=== PATIENT | male | born 1960 | race Caucasian/White ===

== ENCOUNTER 2018-02-03 17:25 | Observation (INO) | payer OTHER ==
[2018-02-03] MEDS ORDERED: methylPREDNISolone SOD SUCCI 125 MG/2 ML VIAL IV STA (17:53)
[2018-02-03] MEDS ORDERED: IPRATROPIUM-ALBUTEROL 3 ML NEB INHALATION STA ×2 (17:53→19:14)
--- NOTE | 2018-02-03 17:58 | ED ---
SOB HPI - General Chief Complaint: Shortness of Breath Stated Complaint: Sob/stomach swollen Time Seen by Provider: 02/03/18 17:44 Source: patient, RN notes reviewed Mode of arrival: ambulatory Limitations: no limitations - History of Present Illness Initial Comments: This is a 49-year-old male with a history of COPD who quit smoking about 2 years ago who states she's been under last stress at work and he states he gets under stress he gets bloating of the abdomen. History past 2 or 3 days she's had shortness of breath increased abdominal swelling no fevers chills nausea vomiting sweats. Patient does state that recently he's been burping a lot. He states she's been dealing with mid back pain in his scapular region for about the last several months he did see a chiropractor with some resolution but not complete. He denies any heart disease cardiovascular disease or any sort. She had no cough or phlegm production he states been using his rescue inhaler today without much success. MD Complaint: shortness of breath - Related Data Home Medications Medication Instructions Recorded Confirmed Albuterol Inhaler [Ventolin Hfa 1 - 2 puff INHALATION RT-Q6H PRN 02/03/18 Inhaler] Zzjec-M-Lsxvezehqktlr [Beano] 300 unit PO DAILY PRN 02/03/18 02/03/18 Budesonide/Formoterol Fumarate 1 puff INHALATION RT-BID 02/03/18 02/03/18 [Symbicort 160-4.5 Mcg Inhaler] Famotidine [Pepcid AC] 10 mg PO DAILY PRN 02/03/18 02/03/18 Fluticasone Nasal [place] [Flonase 1 spray EA NOSTRIL DAILY 02/03/18 02/03/18 Nasal [place]] Pantoprazole [Protonix] 40 mg PO HS 02/03/18 02/03/18 Tiotropium 18 Mcg/Puff [Spiriva] 1 cap INHALATION RT-DAILY 02/03/18 02/03/18 Allergies Allergy/AdvReac Type Severity Reaction Status Date / Time No Known Allergies Allergy Verified 02/03/18 18:01 Review of Systems ROS Statement: Those systems with pertinent positive or pertinent negative responses have been documented in the HPI. ROS Other: All systems not noted in ROS Statement are negative. Past Medical History Past Medical History: Asthma, COPD, GERD/Reflux History of Any Multi-Drug Resistant Organisms: None Reported Past Surgical History: Orthopedic Surgery Additional Past Surgical History / Comment(s): rt hand Past Psychological History: No Psychological Hx Reported Smoking Status: Former smoker Past Alcohol Use History: Occasional Past Drug Use History: None Reported General Exam - General Exam Comments Initial Comments: This is a well-developed well-nourished awake alert oriented 3 male Limitations: no limitations General appearance: alert, in no apparent distress Head exam: Present: atraumatic, normocephalic, normal inspection Eye exam: Present: normal appearance, PERRL, EOMI. Absent: scleral icterus, conjunctival injection, periorbital swelling ENT exam: Present: normal exam, mucous membranes moist Neck exam: Present: normal inspection. Absent: tenderness, meningismus, lymphadenopathy Respiratory exam: Present: decreased breath sounds. Absent: respiratory distress, wheezes, rales, rhonchi, stridor Cardiovascular Exam: Present: regular rate, normal rhythm, normal heart sounds. Absent: systolic murmur, diastolic murmur, rubs, gallop, clicks GI/Abdominal exam: Present: soft, distended, normal bowel sounds, other. Absent : tenderness, guarding, rebound, rigid, bruit, pulsatile mass, hernia Extremities exam: Present: normal inspection, full ROM, normal capillary refill. Absent: tenderness, pedal edema, joint swelling, calf tenderness Back exam: Present: normal inspection Neurological exam: Present: alert, oriented X3, CN II-XII intact Psychiatric exam: Present: normal affect, normal mood Skin exam: Present: warm, dry, intact, normal color. Absent: rash Course Vital Signs 02/03/18 02/03/18 02/03/18 17:33 18:10 18:13 Temperature 99.3 F Pulse Rate 101 H 104 H Respiratory 22 20 Rate Blood Pressure 159/101 O2 Sat by Pulse 90 L Oximetry 02/03/18 02/03/18 02/03/18 18:20 19:19 19:45 Temperature Pulse Rate 85 79 80 Respiratory 18 Rate Blood Pressure 124/67 O2 Sat by Pulse 97 Oximetry 02/03/18 02/03/18 19:53 20:20 Temperature Pulse Rate 84 93 Respiratory 18 Rate Blood Pressure O2 Sat by Pulse 95 Oximetry - Reevaluation(s) Reevaluation #1: 02/03/18 18:44 Reevaluation patient reveals he does feel as if he is breathing better. Reevaluation #2: 02/03/18 21:49 Patient did seem he is some relief after his second updraft however he quickly desaturate with activity and still dyspneic with wheezing does now that wasn't initially. Medical Decision Making - Medical Decision Making Patient will be admitted for evaluation and treatment of COPD exacerbation. - Lab Data Result diagrams: 02/03/18 18:00 02/03/18 18:00 Lab Results 02/03/18 02/03/18 02/03/18 Range/Units 18:00 18:00 18:00 WBC 6.6 (3.8-10.6) k/uL RBC 5.48 (4.30-5.90) m/uL Hgb 16.9 (13.0-17.5) gm/dL Hct 47.7 (39.0-53.0) % MCV 87.1 (80.0-100.0) fL MCH 30.8 (25.0-35.0) pg MCHC 35.4 (31.0-37.0) g/dL RDW 13.0 (11.5-15.5) % Plt Count 147 L (150-450) k/uL Neutrophils % 74 % Lymphocytes % 16 % Monocytes % 6 % Eosinophils % 2 % Basophils % 1 % Neutrophils # 4.9 (1.3-7.7) k/uL Lymphocytes # 1.0 (1.0-4.8) k/uL Monocytes # 0.4 (0-1.0) k/uL Eosinophils # 0.1 (0-0.7) k/uL Basophils # 0.0 (0-0.2) k/uL PT (9.0-12.0) sec INR (<1.2) APTT (22.0-30.0) sec D-Dimer (<0.60) mg/L FEU Sodium 141 (137-145) mmol/L Potassium 4.1 (3.5-5.1) mmol/L Chloride 102 (98-107) mmol/L Carbon Dioxide 27 (22-30) mmol/L Anion Gap 12 mmol/L BUN 17 (9-20) mg/dL Creatinine 0.89 (0.66-1.25) mg/dL Est GFR (CKD-EPI)AfAm >90 (>60 ml/min/1.73 sqM) Est GFR (CKD-EPI)NonAf >90 (>60 ml/min/1.73 sqM) Glucose 87 (74-99) mg/dL Calcium 9.5 (8.4-10.2) mg/dL Magnesium 1.9 (1.6-2.3) mg/dL Total Bilirubin 0.6 (0.2-1.3) mg/dL AST 21 (17-59) U/L ALT 32 (21-72) U/L Alkaline Phosphatase 71 (38-126) U/L Total Creatine Kinase 72 (55-170) U/L CK-MB (CK-2) 1.0 (0.0-2.4) ng/mL CK-MB (CK-2) Rel Index 1.4 Troponin I <0.012 (0.000-0.034) ng/mL NT-Pro-B Natriuret Pep pg/mL Total Protein 6.8 (6.3-8.2) g/dL Albumin 4.2 (3.5-5.0) g/dL 02/03/18 02/03/18 Range/Units 18:00 18:00 WBC (3.8-10.6) k/uL RBC (4.30-5.90) m/uL Hgb (13.0-17.5) gm/dL Hct (39.0-53.0) % MCV (80.0-100.0) fL MCH (25.0-35.0) pg MCHC (31.0-37.0) g/dL RDW (11.5-15.5) % Plt Count (150-450) k/uL Neutrophils % % Lymphocytes % % Monocytes % % Eosinophils % % Basophils % % Neutrophils # (1.3-7.7) k/uL Lymphocytes # (1.0-4.8) k/uL Monocytes # (0-1.0) k/uL Eosinophils # (0-0.7) k/uL Basophils # (0-0.2) k/uL PT 9.8 (9.0-12.0) sec INR 1.0 (<1.2) APTT 23.1 (22.0-30.0) sec D-Dimer 0.20 (<0.60) mg/L FEU Sodium (137-145) mmol/L Potassium (3.5-5.1) mmol/L Chloride (98-107) mmol/L Carbon Dioxide (22-30) mmol/L Anion Gap mmol/L BUN (9-20) mg/dL Creatinine (0.66-1.25) mg/dL Est GFR (CKD-EPI)AfAm (>60 ml/min/1.73 sqM) Est GFR (CKD-EPI)NonAf (>60 ml/min/1.73 sqM) Glucose (74-99) mg/dL Calcium (8.4-10.2) mg/dL Magnesium (1.6-2.3) mg/dL Total Bilirubin (0.2-1.3) mg/dL AST (17-59) U/L ALT (21-72) U/L Alkaline Phosphatase (38-126) U/L Total Creatine Kinase (55-170) U/L CK-MB (CK-2) (0.0-2.4) ng/mL CK-MB (CK-2) Rel Index Troponin I (0.000-0.034) ng/mL NT-Pro-B Natriuret Pep 32 pg/mL Total Protein (6.3-8.2) g/dL Albumin (3.5-5.0) g/dL - EKG Data -: EKG Interpreted by Me EKG shows normal: sinus rhythm (Sinus rhythm rate of 91 appear interval 144 QRS duration 94 daily since QTC 350/4:30 is a normal-appearing EKG) - Radiology Data Radiology results: report reviewed (I did review the imaging and report no acute findings.), image reviewed Critical Care Time Critical Care Time: Yes Critical Care Time: 31 minutes of critical care time which includes initial presentation with history physical labs x-rays reevaluation several occasions discussion with the patient regarding findings discussed with the admitting service admitting orders and documentation of the above Disposition Clinical Impression: Acute exacerbation of chronic obstructive airways disease, Hypoxemia Disposition: ADMITTED IP TO THIS [facility] Condition: Stable Referrals: Grace Gardner MD [Primary Care Provider] - 1-2 days
[2018-02-03 18:25] LABS: Basophils % (A) 1 %; Eosinophils # (A) 0.1 k/uL (0-0.7); Eosinophils % (A) 2 %; HCT 47.7 % (39.0-53.0); HGB 16.9 gm/dL (13.0-17.5); Lymphocytes % (A) 16 %; MCH 30.8 pg (25.0-35.0); MCHC 35.4 g/dL (31.0-37.0); MCV 87.1 fL (80.0-100.0); Mean Platelet Volume 7.4; Monocytes # (A) 0.4 k/uL (0-1.0); Monocytes % (A) 6 %; Neutrophils # (A) 4.9 k/uL (1.3-7.7); Neutrophils % (A) 74 %; Platelet Count 147 k/uL (150-450); RBC 5.48 m/uL (4.30-5.90); WBC 6.6 k/uL (3.8-10.6)
[2018-02-03 18:34] LABS: D-Dimer 0.2 mg/L FEU (<0.60)
[2018-02-03 18:35] LABS: ALT 32 U/L (21-72); AST 21 U/L (17-59); Albumin 4.2 g/dL (3.5-5.0); Alkaline Phosphatase 71 U/L (38-126); Anion Gap 12 mmol/L; Blood Urea Nitrogen 17 mg/dL (9-20); Calcium 9.5 mg/dL (8.4-10.2); Carbon Dioxide 27 mmol/L (22-30); Chloride 102 mmol/L (98-107); Glucose 87 mg/dL (74-99); Magnesium 1.9 mg/dL (1.6-2.3); Potassium 4.1 mmol/L (3.5-5.1); Sodium 141 mmol/L (137-145); Total Bilirubin 0.6 mg/dL (0.2-1.3); Total Protein 6.8 g/dL (6.3-8.2)
[2018-02-03 18:38] LABS: Partial Thromboplastin Time 23.1 sec (22.0-30.0); Prothrombin Time 9.8 sec (9.0-12.0)
[2018-02-03 18:46] LABS: Creatine Kinase 72 U/L (55-170)
--- NOTE | 2018-02-03 18:55 | XR ---
EXAMINATION TYPE: XR chest 2V DATE OF EXAM: 02/03/2018 COMPARISON: 09/23/2011 HISTORY: Difficulty breathing TECHNIQUE: Frontal and lateral views of the chest are obtained. FINDINGS: Focal opacities seen within the right midlung. This is in the region of the previously see n opacity of 2010 although there is no interval growth radiographically. This could represent chronic atelectasis. Additional or nodular density within the right base likely relates to patient's nipple shadow. Repeat radiograph with nipple markers recommended as this is not seen on the lateral view. Re mainder the lungs are clear. Cardiomediastinal silhouette is within normal limits. Osseous structures are grossly intact. IMPRESSION: 1. Chronic right midlung opacity favored to represent chronic atelectasis. 2. Nodular density seen on the frontal view only within the right lung base that likely relates to mathieu delaney's nipple shadow. Nonemergent repeat radiograph with placement of the nipple marker/BB is recomm ended.
[2018-02-03 19:00] LABS: Troponin I <0.012 ng/mL (0.000-0.034)
[2018-02-03] MEDS ORDERED: FAMOTIDINE 20 MG TAB PO PRN (21:53)
[2018-02-03] MEDS ORDERED: ALPHA D GALACTOSIDASE 300 UNIT PO PRN (21:53)
[2018-02-03] MEDS ORDERED: SODIUM CHLORIDE 0.9% 1,000 ML IV SCH (22:00)
[2018-02-03] MEDS ORDERED: IPRATROPIUM-ALBUTEROL 3 ML NEB INHALATION PRN (23:22)
[2018-02-04] MEDS ORDERED: IPRATROPIUM-ALBUTEROL 3 ML NEB INHALATION SCH
[2018-02-04 00:24] VITALS: BMI 27.6
[2018-02-04] MEDS: methylPREDNISolone SOD SUCCI 125 MG/2 ML VIAL IV SCH ×3 (01:11→13:15)
[2018-02-04] MEDS: IPRATROPIUM-ALBUTEROL 3 ML NEB INHALATION SCH ×3 (06:58→15:14)
[2018-02-04 08:29] VITALS: BP 116/81; RESP 18; TEMP 98.8
[2018-02-04] MEDS ORDERED: FLUTICASONE 50MCG/SPRAY NASAL 16GM EA NOSTRIL SCH (09:00)
[2018-02-04] MEDS: ACETAMINOPHEN TAB 325 MG TAB PO PRN ×2 (09:04→14:43)
--- NOTE | 2018-02-04 12:45 | P.HPIM ---
History of Present Illness Patient is a pleasant 57-year-old gentleman came in with complaints of excessive burping and nausea symptoms and mild well epigastric abdominal discomfort associated with food. Patient also had pain going into the posterior shoulder area blade area patient still has his gallbladder obtaining ultrasound of the gallbladder patient is on Protonix symptoms improved. Patient 's had similar symptoms in the past diagnosed with the gastric cancer because of which patient became anxious and came to the ER. In ER patient is found to have some COPD exacerbation because of which patient was started on Solu-Medrol admitted patient has fairly good air entry bilateral lung duong with the no significant wheezing patient will be discharged today and the shot tapering dose after ultrasound of the gallbladder make sure there is no cholelithiasis patient doesn't have any cholecystitis doesn't have any right upper quadrant pain or tenderness. Patient apparently has saturations going down to 80% in ER because of which patient was admitted under observation. Patient denied any cough fever chills chest x-ray did not show any pneumonic process. Review of Systems REVIEW OF SYSTEMS: CONSTITUTIONAL: No fever, no malaise, no fatigue. HEENT: No recent visual problems or hearing problems. Denied any sore throat. CARDIOVASCULAR: No chest pain, orthopnea, PND, no palpitations, no syncope. PULMONARY: As mentioned in HPI GASTROINTESTINAL: As mentioned in HPI NEUROLOGICAL: No headaches, no weakness, no numbness. HEMATOLOGICAL: Denies any bleeding or petechiae. GENITOURINARY: Denies any burning micturition, frequency, or urgency. MUSCULOSKELETAL/RHEUMATOLOGICAL: Denies any joint pain, swelling, or any muscle pain. ENDOCRINE: Denies any polyuria or polydipsia. The rest of the 14-point review of systems is negative. Past Medical History Past Medical History: Asthma, COPD, GERD/Reflux History of Any Multi-Drug Resistant Organisms: None Reported Past Surgical History: Orthopedic Surgery, Tonsillectomy Additional Past Surgical History / Comment(s): rt hand Past Anesthesia/Blood Transfusion Reactions: No Reported Reaction Past Psychological History: No Psychological Hx Reported Smoking Status: Former smoker Past Alcohol Use History: Occasional Past Drug Use History: None Reported - Past Family History Sister(s) Additional Family Medical History / Comment(s): chrohns Mother Family Medical History: Cancer Additional Family Medical History / Comment(s): colon ca diverticulitis Father Family Medical History: Myocardial Infarction (PR) Additional Family Medical History / Comment(s): heart stent Medications and Allergies Home Medications Medication Instructions Recorded Confirmed Type Albuterol Inhaler [Ventolin Hfa 1 - 2 puff INHALATION RT-Q6H PRN 02/03/18 History Inhaler] Dngal-K-Kpoeqttpnakml [Beano] 300 unit PO DAILY PRN 02/03/18 02/03/18 History Budesonide/Formoterol Fumarate 1 puff INHALATION RT-BID 02/03/18 02/03/18 History [Symbicort 160-4.5 Mcg Inhaler] Fluticasone Nasal [place] [Flonase 1 spray EA NOSTRIL DAILY 02/03/18 02/03/18 History Nasal [place]] Pantoprazole [Protonix] 40 mg PO HS 02/03/18 02/03/18 History Tiotropium 18 Mcg/Puff [Spiriva] 1 cap INHALATION RT-DAILY 02/03/18 02/03/18 History Omeprazole [PriLOSEC] 40 mg PO AC-BRTeddyFSHome #30 capsule. 02/04/18 Rx predniSONE 10 mg PO DAILY #20 tab 02/04/18 Rx Allergies Allergy/AdvReac Type Severity Reaction Status Date / Time No Known Allergies Allergy Verified 02/03/18 18:01 Physical Exam Vitals: Vital Signs Temp Pulse Pulse Resp BP BP Pulse Ox 02/04/18 11:04 94 02/04/18 10:50 92 02/04/18 07:10 94 02/04/18 07:00 98.8 F 88 111 H 18 116/81 91 L 02/04/18 00:00 90 16 02/03/18 23:20 92 16 143/75 96 02/03/18 23:00 98.2 F 90 18 130/83 95 02/03/18 22:03 97.9 F 98 16 135/70 94 L 02/03/18 20:20 93 18 95 02/03/18 19:53 84 02/03/18 19:45 80 02/03/18 19:19 79 18 124/67 97 02/03/18 18:20 85 02/03/18 18:13 20 02/03/18 18:10 104 H 02/03/18 17:33 99.3 F 101 H 22 159/101 90 L Intake and Output 02/03/18 02/04/18 02/04/18 22:59 06:59 14:59 Other: Voiding Method Toilet # Voids 1 Weight 82.5 kg PHYSICAL EXAMINATION: GENERAL: The patient is alert and oriented x3, not in any acute distress. Well developed, well nourished. HEENT: Pupils are round and equally reacting to light. EOMI. No scleral icterus. No conjunctival pallor. Normocephalic, atraumatic. No pharyngeal erythema. No thyromegaly. CARDIOVASCULAR: S1 and S2 present. No murmurs, rubs, or gallops. PULMONARY: Chest is clear to auscultation, no wheezing or crackles. ABDOMEN: Soft, nontender, nondistended, normoactive bowel sounds. No palpable organomegaly. MUSCULOSKELETAL: No joint swelling or deformity. EXTREMITIES: No cyanosis, clubbing, or pedal edema. NEUROLOGICAL: Gross neurological examination did not reveal any focal deficits. SKIN: No rashes. Results CBC & Chem 7: 02/03/18 18:00 02/03/18 18:00 Labs: Abnormal Lab Results - Last 24 Hours (Table) 02/03/18 Range/Units 18:00 Plt Count 147 L (150-450) k/uL Thrombosis Risk Factor Assmnt - Choose All That Apply Any of the Below Risk Factors Present?: Yes Each Factor Represents 1 point: Age 41-60 years, Obesity (BMI >25) Other Risk Factors: No Thrombosis Risk Factor Assessment Total Risk Factor Score: 2 Thrombosis Risk Factor Assessment Level: Low Risk Assessment and Plan Plan: -Excessive worry pain and mild epigastric discomfort: Probably related to gastritis patient will be discharged on Prilosec for [address] Mccann at him as an outpatient for possibility of upper GI endoscopy because of his concerns of gastric malignancy. -Pain radiating to the bilateral shoulder blades: We'll rule out cholelithiasis patient doesn't have any cholecystitis, if he has Nathalie TSS patient will need to follow up with surgery as an outpatient. -COPD with minimal exacerbation: Patient the respiratory status improved sat. 90 where 1% on room air patient will be discharged on shocked February of steroids patient is already on THAT THE APPROPRIATE HOME WHICH WILL BE CONTINUED. -OBESITY: COUNSELING WAS PROVIDED.
[2018-02-04 12:46] LABS: Amylase 40 U/L (30-110); Lipase 34 U/L (23-300)
--- NOTE | 2018-02-04 14:38 | US ---
EXAMINATION TYPE: US gallbladder DATE OF EXAM: 02/04/2018 COMPARISON: NONE CLINICAL HISTORY: r/o gall stones. Intermittent bloating for 3 years. Indigestion for 1 week. Abdomin al tenderness EXAM MEASUREMENTS: Liver Length: 17.6 cm Gallbladder Wall: 0.3 cm CBD: 0.3 cm Right Kidney: 11.0 x 5.1 x 5.0 cm *Technical limitations due to large amount of overlying bowel content Pancreas: Obscured by bowel gas Liver: upper limits of normal in size, diffusely hyperechoic other than a focal hypoechoic area zakiya cent to GB = 1.5cm, probable focal sparing Gallbladder: no evidence of stones Evidence for sonographic Perry's sign: no CBD: appears wnl Right Kidney: no evidence of hydronephrosis or mass as visualized IMPRESSION: 1. Hyperechoic hepatic echotexture, most commonly relating to hepatic steatosis. Focal area of hypoec hogenicity in the gallbladder fossa most commonly represents focal fatty sparing in this region. Rela te with LFTs. There is further clinical concern enhanced CT abdomen or MR abdomen could BE performed. 2. No sonographic evidence of cholelithiasis or acute cholecystitis.
[2018-02-04 15:28] VITALS: PULSE 102
--- NOTE | 2018-02-04 15:45 | P.CNPUL ---
History of Present Illness Consult date: 02/04/18 Requesting physician: Ama Scahefer Reason for consult: dyspnea, COPD Chief complaint: Shortness of breath, acute COPD exacerbation History of present illness: Rick is a 57-year-old white male patient of Dr. 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 Reports a lot of burping, his abdomen is quiet distended, but nontender. Patient denied any fever, or chills. His cough is dry, noncongested. Denies any chest pain, denies any chest congestion, wheezing, or sputum production. Patient does have an underlying history of COPD, he sees a fig caprifier at [facility], Dr. Jeremias Belle, and he was seen in the office last week, and he was doing fine at that time. He does not wear oxygen at his baseline. He is an ex smoker, he quit several years back, but prior to that smoked for over 40 years. He is maintained on a combination of Spiriva and Symbicort. Patient states his baseline FEV1 is 35% of predicted, which places him in the GOLD stage III category. He also states he has pulmonary nodules that are being followed by his fig caprifier on outpatient basis with PET/CT scans every 6 months. The biopsies were reportedly negative for malignancy. He states the last PET/ computed tomography scan showed decrease in the size of his pulmonary nodules. He does have a rescue inhaler, which he did use multiple times yesterday, with no relief of his symptoms. He states he was diagnosed with GERD/reflux in the past, did have a EGD which revealed a hiatal hernia. He is on maintenance dose of Protonix 40 mg daily. He has regular bowel movements every day, denies any nausea vomiting or diarrhea. Chest x-ray showed chronic right midlung opacity favored to represent chronic atelectasis and nodular density in the right lung base, which is thought to be related to patient's nipple shadow. EKG showed sinus rhythm. Patient's lipase and amylase were within normal limits, his lab work showed no evidence of leukocytosis, his platelet count was 147, d-dimer was 0.20, INR is 1.0, electrolyte and renal profile were all within normal limits. Cardiac enzymes and troponins as well as proBNP were all within normal limits. LFTs were normal. Influenza screen was negative. Gallbladder ultrasound was done and showed no sonographic evidence of cholelithiasis or acute cholecystitis. Hyperechoic hepatic echotexture, most commonly relating to hepatic steatosis. Patient was given DuoNeb nebulized treatments, IV steroids, Protonix and on today's exam his lung sounds are clear, no evidence of rhonchi, wheezing or rales. He is on room air, oxygenating above 92%. No cough, no fever, no chills. His abdomen is distended, but nontender. Review of Systems All systems: negative Constitutional: Denies chills, Denies fever Eyes: denies blurred vision, denies pain Ears, nose, mouth and throat: Denies headache, Denies sore throat Cardiovascular: Denies chest pain, Denies shortness of breath Respiratory: Reports dyspnea, Denies cough Gastrointestinal: Reports bloating, Denies abdominal pain, Denies diarrhea, Denies nausea, Denies vomiting Musculoskeletal: Denies myalgias Integumentary: Denies pruritus, Denies rash Neurological: Denies numbness, Denies weakness Psychiatric: Denies anxiety, Denies depression Endocrine: Denies fatigue, Denies weight change Past Medical History Past Medical History: Asthma, COPD, GERD/Reflux History of Any Multi-Drug Resistant Organisms: None Reported Past Surgical History: Orthopedic Surgery, Tonsillectomy Additional Past Surgical History / Comment(s): rt hand Past Anesthesia/Blood Transfusion Reactions: No Reported Reaction Past Psychological History: No Psychological Hx Reported Smoking Status: Former smoker Past Alcohol Use History: Occasional Past Drug Use History: None Reported - Past Family History Sister(s) Additional Family Medical History / Comment(s): chrohns Mother Family Medical History: Cancer Additional Family Medical History / Comment(s): colon ca diverticulitis Father Family Medical History: Myocardial Infarction ([place]) Additional Family Medical History / Comment(s): heart stent Medications and Allergies Home Medications Medication Instructions Recorded Confirmed Type Albuterol Inhaler [Ventolin Hfa 1 - 2 puff INHALATION RT-Q6H PRN 02/03/18 History Inhaler] Wrobc-E-Zmunhkuddwmvy [Beano] 300 unit PO DAILY PRN 02/03/18 02/03/18 History Budesonide/Formoterol Fumarate 1 puff INHALATION RT-BID 02/03/18 02/03/18 History [Symbicort 160-4.5 Mcg Inhaler] Fluticasone Nasal [place] [Flonase 1 spray EA NOSTRIL DAILY 02/03/18 02/03/18 History Nasal [place]] Pantoprazole [Protonix] 40 mg PO HS 02/03/18 02/03/18 History Tiotropium 18 Mcg/Puff [Spiriva] 1 cap INHALATION RT-DAILY 02/03/18 02/03/18 History Omeprazole [PriLOSEC] 40 mg PO AC-BRKFST #30 capsule. 02/04/18 Rx predniSONE 10 mg PO DAILY #20 tab 02/04/18 Rx Allergies Allergy/AdvReac Type Severity Reaction Status Date / Time No Known Allergies Allergy Verified 02/03/18 18:01 Physical Exam Vitals: Vital Signs Temp Pulse Pulse Resp BP BP Pulse Ox 02/04/18 11:04 94 02/04/18 10:50 92 02/04/18 07:10 94 02/04/18 07:00 98.8 F 88 111 H 18 116/81 91 L 02/04/18 00:00 90 16 02/03/18 23:20 92 16 143/75 96 02/03/18 23:00 98.2 F 90 18 130/83 95 02/03/18 22:03 97.9 F 98 16 135/70 94 L 02/03/18 20:20 93 18 95 02/03/18 19:53 84 02/03/18 19:45 80 02/03/18 19:19 79 18 124/67 97 02/03/18 18:20 85 02/03/18 18:13 20 02/03/18 18:10 104 H 02/03/18 17:33 99.3 F 101 H 22 159/101 90 L Intake and Output 02/04/18 02/04/18 02/04/18 06:59 14:59 22:59 Other: Voiding Method Toilet # Voids 1 GENERAL EXAM: Alert, pleasant, 57-year-old white male, comfortable in no apparent distress. HEAD: Normocephalic/atraumatic. EYES: Normal reaction of pupils, equal size. Conjunctiva pink, sclera white. NOSE: Clear with pink turbinates. THROAT: No erythema or exudates. NECK: No masses, no JVD, no thyroid enlargement, no adenopathy. CHEST: No chest wall deformity. Symmetrical expansion. LUNGS: Equal air entry with no crackles, wheeze, rhonchi or dullness. CVS: Regular rate and rhythm, normal S1 and S2, no gallops, no murmurs, no rubs ABDOMEN: Distended, but nontender. Bowel sounds 4. No hepatosplenomegaly, normal bowel sounds, no guarding or rigidity. EXTREMITIES: No clubbing, no edema, no cyanosis, 2+ pulses and upper and lower extremities. MUSCULOSKELETAL: Muscle strength and tone normal. SPINE: No scoliosis or deformity SKIN: No rashes CENTRAL NERVOUS SYSTEM: Alert and oriented -3. No focal deficits, tone is normal in all 4 extremities. PSYCHIATRIC: Alert and oriented -3. Appropriate affect. Intact judgment and insight. Results - Laboratory Findings CBC and BMP: 02/03/18 18:00 02/03/18 18:00 PT/INR, D-dimer PT 9.8 sec (9.0-12.0) 02/03/18 18:00 INR 1.0 (<1.2) 02/03/18 18:00 D-Dimer 0.20 mg/L FEU (<0.60) 02/03/18 18:00 Abnormal lab findings: Abnormal Labs 02/03/18 18:00 Plt Count 147 L - Diagnostic Findings Chest x-ray: report reviewed Additional studies: EKG reviewed, gallbladder ultrasound report reviewed Assessment and Plan Plan: Assessment: #1. Mild exacerbation of COPD, exacerbated by workplace fumes and dust. Responded well to IV steroids, nebulized treatments #2. Advanced COPD, steroid dependent, with reported FEV1 of 35% of predicted, which would place the patient in the GOLD stage III category #3. Pulmonary nodules, being followed on an outpatient basis by a fig caprifier from the [facility], Dr. Jeremias Magana. The biopsies were reportedly negative. Most recent PET/computed tomography scan showed shrinking of the pulmonary nodules #4. History of nicotine dependence, currently in remission, carries 40-pack- year smoking history #5. Abdominal distention, with epigastric discomfort, with burping. Lipase and amylase were within normal limits, gallbladder ultrasound showed no evidence of cholecystitis, or cholelithiasis. It showed hyperechoic hepatic echotexture, most likely related to hepatic steatosis #6. GERD/reflux, hiatal hernia, patient is on Protonix on a daily basis #7. Obesity Plan: Continue current plan of care, patient responded well to IV steroids, nebulized treatments. Patient reports improvement in his dyspnea, his lung sounds are clear to auscultation, no wheezing or rhonchi noted. No chest congestion, no fever or chills. Patient could be switched to oral steroids, and discharged home from pulmonary standpoint and follow-up with his fig caprifier. I performed a history & physical examination of the patient and discussed their management with my nurse practitioner, Jaci Stoner. I reviewed the nurse practitioner's note and agree with the documented findings and plan of care. Lung sounds are clear. The findings and the impression was discussed with the patient. I attest to the documentation by the nurse practitioner. Time with Patient: Greater than 30
[2018-02-04] MEDS ORDERED: PANTOPRAZOLE 40 MG TABLET PO SCH (21:00)
== END 2018-02-04 16:00 | disposition home or self-care (01) ==
LOC: EC 17:25 → 5MS5E 21:51
PROVIDERS: ADMIT Internal Medicine; ATTEND Internal Medicine
DX: R10.13 Epigastric pain (principal); J44.1 Chronic obstructive pulmonary disease with (acute) exacerbation; R11.0 Nausea; R09.02 Hypoxemia; R14.0 Abdominal distension (gaseous); M54.6 Pain in thoracic spine; E66.9 Obesity, unspecified; R91.8 Other nonspecific abnormal finding of lung field; Z68.27 Body mass index [BMI] 27.0-27.9, adult; K21.9 Gastro-esophageal reflux disease without esophagitis; K44.9 Diaphragmatic hernia without obstruction or gangrene; K76.0 Fatty (change of) liver, not elsewhere classified; Z79.899 Other long term (current) drug therapy; Z79.52 Long term (current) use of systemic steroids; Z79.51 Long term (current) use of inhaled steroids; Z82.49 Family history of ischemic heart disease and other diseases of the circulatory system; Z80.0 Family history of malignant neoplasm of digestive organs; Z87.891 Personal history of nicotine dependence
CPT/HCPCS: 99291 ×2; 96374 ×2; 96376; 36415; 94640 ×4; 93005; 85379; 83880; 80053; 82150; 82550; 82553; 83690; 83735; 84484; 85025; 85610; 85730; 87502; 71046; 76705; G0378 ×2; J2930 ×2

== ENCOUNTER → 2019-07-16 | Outpatient (CLI) | payer OTHER ==
--- NOTE | 2019-07-16 09:13 | US ---
EXAMINATION TYPE: US abdomen complete DATE OF EXAM: 07/16/2019 COMPARISON: US 02/04/2018 CLINICAL HISTORY: 58-year-old male R74.8 Elevated Liver Enzymes. TECHNIQUE: Multiple sonographic images of the abdomen are obtained. FINDINGS: STRATEGY LEAD NOTES: Difficult and limited exam due to overlying bowel gas and patient body habitus EXAM MEASUREMENTS: Liver Length: 17.2 cm Gallbladder Wall: 0.2 cm CBD: 0.4 cm Spleen: 11.3 cm Right Kidney: 9.4 x 5.4 x 4.3 cm Left Kidney: 9.8 x 5.4 x 4.9 cm Pancreas: Small portion of the visualized pancreatic body shows no gross abnormality. Remainder is s hadowed out by bowel gas. Liver: Heterogeneous, coarse echotexture. Attenuating, measuring upper limits of normal. Hypoechoic area visualized adjacent to the gallbladder measuring 1.4 x 0.8 x 1.1 cm likely fatty sparing. Gallbladder: wnl Evidence for sonographic Perry's sign: No CBD: wnl as visualized. Distal portion obscured by bowel gas Spleen: wnl Right Kidney: No hydronephrosis. Left Kidney: No hydronephrosis. Upper IVC: wnl as visualized Abd Aorta: Distal abdominal aorta is borderline ectatic at 2.5 cm. Atherosclerotic changes are seen within. IMPRESSION: Moderate to severe hepatic steatosis. Correlate with LFTs, profile, and patient risk factors.
== END | disposition home or self-care (01) ==
LOC: RADUSWWP 07:55
PROVIDERS: ATTEND Family Medicine
DX: K76.0 Fatty (change of) liver, not elsewhere classified (principal)
CPT/HCPCS: 76700

== ENCOUNTER 2019-12-16 20:04 | Inpatient (IN) | payer OTHER ==
[2019-12-16] MEDS ORDERED: SODIUM CHLORIDE 0.9% 1,000 ML IV STA (20:12)
[2019-12-16] MEDS ORDERED: methylPREDNISolone SOD SUCCI 125 MG/2 ML VIAL IV STA (20:12)
[2019-12-16] MEDS ORDERED: ACETAMINOPHEN TAB 500 MG TAB PO STA (20:12)
[2019-12-16] MEDS ORDERED: IPRATROPIUM-ALBUTEROL 3 ML NEB INHALATION STA (20:12)
--- NOTE | 2019-12-16 20:14 | ED ---
General Adult HPI - General Chief complaint: Shortness of Breath Stated complaint: SOB Time Seen by Provider: 12/16/19 20:09 Source: patient, RN notes reviewed Mode of arrival: wheelchair Limitations: no limitations - History of Present Illness Initial comments: Patient is a pleasant 59-year-old male presenting to the emergency department with difficulty breathing. Patient has had mild symptoms for the past week, more so since last night. Patient has developed fever. Patient does have cough with minimal clear sputum. Minimal rhinorrhea. No sore throat. No abdominal pain or dysuria. Patient does have history of similar symptoms previously as sociated with COPD. - Related Data Home Medications Medication Instructions Recorded Confirmed Albuterol Inhaler [Ventolin Hfa 1 - 2 puff INHALATION RT-Q6H PRN 02/03/18 02/03/18 Inhaler] Cmydx-R-Xaegchrrpppwq [Beano] 300 unit PO DAILY PRN 02/03/18 02/03/18 Budesonide/Formoterol Fumarate 1 puff INHALATION RT-BID 02/03/18 02/03/18 [Symbicort 160-4.5 Mcg Inhaler] Fluticasone Nasal [place] [Flonase 1 spray EA NOSTRIL DAILY 02/03/18 02/03/18 Nasal [place]] Pantoprazole [Protonix] 40 mg PO HS 02/03/18 02/03/18 Tiotropium 18 Mcg/Puff [Spiriva] 1 cap INHALATION RT-DAILY 02/03/18 02/03/18 Previous Rx's Medication Instructions Recorded Omeprazole [PriLOSEC] 40 mg PO AC-BRKFST #30 capsule. 02/04/18 predniSONE 10 mg PO DAILY #20 tab 02/04/18 Allergies Allergy/AdvReac Type Severity Reaction Status Date / Time No Known Allergies Allergy Verified 12/16/19 20:08 Review of Systems ROS Statement: Those systems with pertinent positive or pertinent negative responses have been documented in the HPI. ROS Other: All systems not noted in ROS Statement are negative. Constitutional: Reports: fever, chills Eyes: Denies: eye pain ENT: Denies: ear pain, throat pain Respiratory: Reports: cough, dyspnea Cardiovascular: Denies: chest pain Endocrine: Reports: fatigue Gastrointestinal: Denies: abdominal pain Genitourinary: Denies: dysuria Musculoskeletal: Denies: back pain Skin: Denies: rash Neurological: Denies: weakness Past Medical History Past Medical History: Asthma, COPD, GERD/Reflux History of Any Multi-Drug Resistant Organisms: None Reported Past Surgical History: Orthopedic Surgery, Tonsillectomy Additional Past Surgical History / Comment(s): rt hand Past Anesthesia/Blood Transfusion Reactions: No Reported Reaction Past Psychological History: No Psychological Hx Reported Smoking Status: Former smoker Past Alcohol Use History: Occasional Past Drug Use History: None Reported - Past Family History Sister(s) Additional Family Medical History / Comment(s): chrohns Mother Family Medical History: Cancer Additional Family Medical History / Comment(s): colon ca diverticulitis Father Family Medical History: Myocardial Infarction ([place]) Additional Family Medical History / Comment(s): heart stent General Exam Limitations: no limitations General appearance: alert, in no apparent distress Head exam: Present: normocephalic Eye exam: Present: normal appearance ENT exam: Present: normal oropharynx Neck exam: Present: normal inspection Respiratory exam: Present: respiratory distress, wheezes, accessory muscle use, decreased breath sounds Cardiovascular Exam: Present: tachycardia GI/Abdominal exam: Present: soft. Absent: tenderness Extremities exam: Present: normal inspection. Absent: pedal edema, calf tenderness Neurological exam: Present: alert Psychiatric exam: Present: normal affect, normal mood Skin exam: Present: normal color Course Vital Signs 12/16/19 12/16/19 12/16/19 20:05 20:21 20:35 Temperature 100.3 F H 102 F H Pulse Rate 119 H 105 H 105 H Respiratory 26 H 20 Rate Blood Pressure 122/68 138/93 O2 Sat by Pulse 90 L 95 Oximetry 12/16/19 12/16/19 12/16/19 20:36 20:49 20:51 Temperature 101.9 F H 102.2 F H Pulse Rate 105 H 109 H 105 H Respiratory 18 20 Rate Blood Pressure 112/72 132/63 O2 Sat by Pulse 92 L 95 Oximetry EKG Findings - EKG Comments: EKG Findings:: Sinus tachycardia 109. MO 128. QRS 94. QT 322. QTC 433. Normal axis. Normal QRS. No acute ST change. Medical Decision Making - Medical Decision Making Patient reevaluated and is somewhat improved. Case discussed with Dr. Bridges, who will admit covering for hospital call. He did come evaluate patient. - Lab Data Result diagrams: 12/16/19 20:24 Lab Results 12/16/19 12/16/19 Range/Units 20:24 20:24 WBC 6.0 (3.8-10.6) k/uL RBC 5.82 (4.30-5.90) m/uL Hgb 16.9 (13.0-17.5) gm/dL Hct 53.3 H (39.0-53.0) % MCV 91.6 (80.0-100.0) fL MCH 29.0 (25.0-35.0) pg MCHC 31.6 (31.0-37.0) g/dL RDW 13.4 (11.5-15.5) % Plt Count 124 L (150-450) k/uL Influenza Type A RNA Detected H (Not Detectd) Influenza Type B (PCR) Not Detected (Not Detectd) - Radiology Data Radiology results: image reviewed (Chest x-ray shows no acute) Disposition Clinical Impression: Acute exacerbation of chronic obstructive pulmonary disease, Influenza Disposition: ADMITTED IP TO THIS HOSP Is patient prescribed a controlled substance at d/c from ED?: No Referrals: Grace Gardner MD [Primary Care Provider] - 1-2 days Decision Time: 20:58
[2019-12-16 20:51] LABS: HCT 53.3 % (39.0-53.0); HGB 16.9 gm/dL (13.0-17.5); MCHC 31.6 g/dL (31.0-37.0); MCV 91.6 fL (80.0-100.0); Mean Platelet Volume 9.1; Platelet Count 124 k/uL (150-450); RBC 5.82 m/uL (4.30-5.90); RDW 13.4 % (11.5-15.5)
[2019-12-16] MEDS ORDERED: IPRATROPIUM-ALBUTEROL 3 ML NEB INHALATION PRN (20:58)
--- NOTE | 2019-12-16 21:01 | XR ---
EXAMINATION: XR chest 2V DATE AND TIME: 12/16/2019 8:56 PM CLINICAL INDICATION: PHH; difficulty breathing TECHNIQUE: Departmental protocol COMPARISON: 02/03/2018 FINDINGS: The lungs are clear. The pleural spaces are negative. The cardiac silhouette is not enlarged. The remainder of the mediastinal silhouette is unremarkable. The skeletal structures and soft tissues are negative for acute findings. IMPRESSION: NO ACUTE PROCESS.
[2019-12-16 21:09] LABS: Albumin 4.1 g/dL (3.5-5.0); Calcium 8.9 mg/dL (8.4-10.2); Potassium 4.5 mmol/L (3.5-5.1); Total Bilirubin 0.8 mg/dL (0.2-1.3); Total Protein 6.5 g/dL (6.3-8.2)
[2019-12-16 21:31] LABS: Lymphocytes # (M) 0.18 k/uL (1.0-4.8); Monocytes # (M) 0.36 k/uL (0-1.0); Neutrophils # (M) 5.46 k/uL (1.3-7.7); Neutrophils % (M) 91 %; Nucleated Red Blood Cells 0 /100 WBC (0-0); Total Cells Counted 100
--- NOTE | 2019-12-16 23:54 | P.HPIM ---
History of Present Illness H&P Date: 12/16/19 Patient is a 59-year-old male with a PMH of COPD who presented to the ED with complaints of SOB, fever, and a nonproductive cough. Patient reports that his symptoms initially started to feel week ago though significantly worsened yesterday. He reports that his son had been having a cough for the past few days along with several people at his work. He reports a persistent nonproductive cough and a mild subsequent sharp chest pain which he believes is due to the coughing. He reports that he felt febrile all day today with a measured temperature of 102 at home. He denied nausea, vomiting, diaphoresis, leg pain, headache, or dizziness. He also denied diarrhea. The patient underwent an extensive evaluation in the emergency room. The patient was febrile upon presentation with Tmax 102.2, with a chest x-ray that was unremarkable, and an EKG showing sinus tachycardia at [address]/T-wave changes noted. Laboratory evaluation revealed influenza type A positive, WBC count of 6.0, hemoglobin 16.9, platelets 124, sodium 136, potassium 4.5, BUN 21, creatinine 1.07, and glucose 102. The patient was started on Solu-Medrol, DuoNeb's, Tamiflu, and IV fluids and was admitted to the medicine service. Review of Systems Pertinent positives and negatives as discussed in HPI, a complete review of systems was performed and all other systems are negative. Past Medical History Past Medical History: Asthma, COPD, GERD/Reflux History of Any Multi-Drug Resistant Organisms: None Reported Past Surgical History: Orthopedic Surgery, Tonsillectomy Additional Past Surgical History / Comment(s): rt hand Past Anesthesia/Blood Transfusion Reactions: No Reported Reaction Past Psychological History: No Psychological Hx Reported Smoking Status: Former smoker Past Alcohol Use History: Occasional Past Drug Use History: None Reported - Past Family History Sister(s) Additional Family Medical History / Comment(s): chrohns Mother Family Medical History: Cancer Additional Family Medical History / Comment(s): colon ca diverticulitis Father Family Medical History: Myocardial Infarction ([place]) Additional Family Medical History / Comment(s): heart stent Medications and Allergies Home Medications Medication Instructions Recorded Confirmed Type Fluticasone Nasal [place] [Flonase 1 spray EA NOSTRIL DAILY 02/03/18 12/16/19 History Nasal [place]] Pantoprazole [Protonix] 40 mg PO DAILY 02/03/18 12/16/19 History Albuterol Sulfate [Proair Hfa] 2 puff INHALATION RT-Q4H PRN 12/16/19 12/16/19 History Fluticasone/Umeclidin/Vilanter 1 puff INHALATION RT-DAILY 12/16/19 12/16/19 History [Trelegy Ellipta 100-62.5-25] Loratadine [Claritin] 10 mg PO DAILY 12/16/19 12/16/19 History Allergies Allergy/AdvReac Type Severity Reaction Status Date / Time No Known Allergies Allergy Verified 12/16/19 21:41 Physical Exam Vitals: Vital Signs Temp Pulse Pulse Resp BP Pulse Ox 12/16/19 22:04 98.8 F 95 21 92 L 12/16/19 21:21 101.4 F H 99 18 115/72 93 L 12/16/19 21:06 101.8 F H 101 H 18 112/62 95 12/16/19 20:51 102.2 F H 105 H 20 132/63 95 12/16/19 20:49 109 H 12/16/19 20:36 101.9 F H 105 H 18 112/72 92 L 12/16/19 20:35 105 H 12/16/19 20:21 102 F H 105 H 20 138/93 95 12/16/19 20:05 100.3 F H 119 H 26 H 122/68 90 L Intake and Output 12/16/19 12/16/19 12/17/19 14:59 22:59 06:59 Other: Weight 88.451 kg General: non toxic, no distress, appears at stated age, overweight Derm: no unusual rashes/lesions no unusual ecchymoses, warm, dry Head: atraumatic, normocephalic, symmetric Eyes: EOMI, no lid lag, anicteric sclera, pupils equal round reactive to light ENT: Nose and ears atraumatic, no thrush, no pharyngeal erythema Neck: No thyromegaly, no cervical lymphadenopathy, trachea midline, supple Mouth: no lip lesion, mucus membranes moist Cardiovascular: S1S2 reg, no murmur, positive posterior tibial pulse bilateral, no edema, capillary refill less than 2 seconds Lungs: Bilateral prolonged expiration with wheezing and some coarse breath sounds throughout, no rales , no accessory muscle use Abdominal: soft, nontender to palpation, no guarding, no appreciable organomegaly, normal bowel sounds Ext: no gross muscle atrophy, muscle strength 5 out of 5 in all 4 extremities grossly, no contractures, Neuro: CN II-XI grossly intact, light touch intact all 4 extremities, finger to nose within normal limits, Psych: Alert, oriented, appropriate affect Results CBC & Chem 7: 12/16/19 20:24 12/16/19 20:24 Labs: Abnormal Lab Results - Last 24 Hours (Table) 12/16/19 12/16/19 12/16/19 Range/Units 20:24 20:24 20:24 Hct 53.3 H (39.0-53.0) % Plt Count 124 L (150-450) k/uL Lymphocytes # (Manual) 0.18 L (1.0-4.8) k/uL Sodium 136 L (137-145) mmol/L BUN 21 H (9-20) mg/dL Glucose 102 H (74-99) mg/dL Influenza Type A RNA Detected H (Not Detectd) Thrombosis Risk Factor Assmnt - Choose All That Apply Each Factor Represents 1 point: Abnormal pulmonary function (COPD) Thrombosis Risk Factor Assessment Total Risk Factor Score: 1 Thrombosis Risk Factor Assessment Level: Low Risk Assessment and Plan Plan: Influenza A infection -Continue with Tamiflu -Droplet precautions -Continue with IV fluids Acute COPD exacerbation in setting of influenza infection -Continue with Solu-Medrol 60 mg every 6 hourly -Continue with DuoNeb's [id number] and as needed -Protonix -Supplemental oxygen Thrombocytopenia -Possibly due to active infection -Monitor CBC for now DVT prophylaxis -IPCDs (due to thrombocytopenia) The patient is admitted with an anticipated more than 2 midnight stay for evaluation of influenza A infection CODE STATUS: Full code Discussed with: Patient Anticipated discharge date: 2-[address]: Home A total of 40 minutes was spent on the care of this complex patient more than 50% of the time was spent in counseling and care coordination.
[2019-12-17] MEDS: OSELTAMIVIR 75 MG CAP PO SCH ×3 (00:23→22:25)
[2019-12-17] MEDS: methylPREDNISolone SOD SUCCI 125 MG/2 ML VIAL IV SCH ×4 (00:24→17:03)
[2019-12-17] MEDS: SODIUM CHLORIDE 0.9% 1,000 ML IV SCH ×3 (00:25→17:04)
[2019-12-17] MEDS: PANTOPRAZOLE 40 MG TABLET PO SCH (08:06)
[2019-12-17] MEDS: IPRATROPIUM-ALBUTEROL 3 ML NEB INHALATION SCH ×2 (08:42→11:53)
--- NOTE | 2019-12-17 15:04 | P.PN ---
Subjective Progress Note Date: 12/17/19 Principal diagnosis: follow up for positive flu and COPD exacerbation Patient seen and examined He reports his breathing is getting better reports body aches that are well controlled. Denies any fevers however he was febrile at home Currently feels congested and requesting to use his own inhalers. Otherwise denies any chest pain denies any abdominal pain. Tolerating by mouth intake denies any nausea vomiting Objective - Vital Signs Vital signs: Vital Signs Temp 98.2 F 12/17/19 07:00 Pulse 100 12/17/19 12:05 Resp 16 12/17/19 07:00 BP 120/69 12/17/19 07:00 Pulse Ox 95 12/17/19 07:00 Intake & Output 12/16/19 12/17/19 12/17/19 18:59 06:59 18:59 Weight 88.451 kg Other: # Voids 3 - Exam Constitutional: vital signs stable, Not in acute distress, pleasant, conversant Lungs: Decreased breath sounds throughout, prolonged expiratory phase with expiratory wheezing, clear to percussion, normal respiratory effort Cardiovascular: Regular rate and rhythm, no murmurs, no gallops, no rubs, no peripheral edema Extremities: No digital cyanosis peripheral pulses palpable and equal , no calf muscle tenderness Psych: Alert, oriented to place, person and time, appropriate affect, intact judgment - Labs CBC & Chem 7: 12/16/19 20:24 12/16/19 20:24 Labs: Abnormal Lab Results - Last 24 Hours (Table) 12/16/19 12/16/19 12/16/19 Range/Units 20:24 20:24 20:24 Hct 53.3 H (39.0-53.0) % Plt Count 124 L (150-450) k/uL Lymphocytes # (Manual) 0.18 L (1.0-4.8) k/uL Sodium 136 L (137-145) mmol/L BUN 21 H (9-20) mg/dL Glucose 102 H (74-99) mg/dL Influenza Type A RNA Detected H (Not Detectd) Assessment and Plan Assessment: 59-year-old male with COPD , admitted for acute COPD exacerbation and tested positive for influenza A. Plan: Acute COPD exacerbation with underlying influenza Acute influenza A infection Thrombocytopenia mild COPD pathway, DuoNeb's around the clock and when necessary Resume home inhalers CPT Supportive care Tylenol for fever Motrin for body aches Tamiflu 1 day of IV systemic steroids then we will transition to by mouth steroids DVT prophylaxis heparin subcu 3 times a day, close monitoring of th rombocytopenia Anticipated discharge to home in 48 hours
[2019-12-17] MEDS: IPRATROPIUM 0.5 MG/2.5 ML NEBU INHALATION SCH (16:49)
[2019-12-17] MEDS: IPRATROPIUM-ALBUTEROL 3 ML NEB INHALATION PRN ×2 (16:53→20:54)
[2019-12-17] MEDS: HEPARIN SODIUM,PORCINE 5,000 UNIT/ML 1 ML VIAL SQ SCH ×2 (17:03→23:57)
[2019-12-17] MEDS: SYMBICORT 80-4.5 MCG INHALER INHALATION SCH (20:52)
[2019-12-17] MEDS: guaiFENesin 600 MG TABLET.ER PO SCH (22:25)
[2019-12-18] MEDS: SODIUM CHLORIDE 0.9% 1,000 ML IV SCH ×2 (00:12→17:12)
[2019-12-18 07:03] LABS: Basophils % (A) 0 %; Eosinophils % (A) 0 %; HCT 48.4 % (39.0-53.0); HGB 15.4 gm/dL (13.0-17.5); Lymphocytes # (A) 0.5 k/uL (1.0-4.8); Lymphocytes % (A) 5 %; MCH 29.6 pg (25.0-35.0); MCHC 31.8 g/dL (31.0-37.0); MCV 93.1 fL (80.0-100.0); Mean Platelet Volume 9.4; Monocytes # (A) 0.8 k/uL (0-1.0); Monocytes % (A) 8 %; Neutrophils # (A) 8.2 k/uL (1.3-7.7); Neutrophils % (A) 85 %; Platelet Count 116 k/uL (150-450); RDW 13.6 % (11.5-15.5); WBC 9.6 k/uL (3.8-10.6)
[2019-12-18] MEDS: IPRATROPIUM 0.5 MG/2.5 ML NEBU INHALATION SCH ×2 (07:57→11:12)
[2019-12-18] MEDS: SYMBICORT 80-4.5 MCG INHALER INHALATION SCH (08:01)
[2019-12-18] MEDS ORDERED: predniSONE 20 MG TAB PO SCH (09:00)
[2019-12-18] MEDS: guaiFENesin 600 MG TABLET.ER PO SCH (10:21)
[2019-12-18] MEDS: PANTOPRAZOLE 40 MG TABLET PO SCH (10:21)
[2019-12-18] MEDS: LORATADINE 10 MG TAB PO SCH (10:21)
[2019-12-18] MEDS: OSELTAMIVIR 75 MG CAP PO SCH ×2 (10:21→21:43)
[2019-12-18] MEDS: HEPARIN SODIUM,PORCINE 5,000 UNIT/ML 1 ML VIAL SQ SCH ×3 (10:26→23:13)
[2019-12-18] MEDS ORDERED: BENZONATATE 100 MG CAP PO PRN (13:04)
[2019-12-18] MEDS: methylPREDNISolone SOD SUCCI 125 MG/2 ML VIAL IV SCH ×3 (13:48→23:21)
--- NOTE | 2019-12-18 13:58 | XR ---
EXAMINATION TYPE: XR chest 1V portable DATE OF EXAM: 12/18/2019 HISTORY: pneumonia. REFERENCE: Previous study dated 12/16/2019. FINDINGS: The lungs are overinflated. The heart is mildly enlarged. There is some scarring or atelect asis at the left lung base. There is atelectatic change at the right lung base. There is blunting of both CP angles. I could not exclude small effusions. IMPRESSION: 1. COPD 2. MILD CARDIOMEGALY. 3. SCARRING VERSUS ATELECTASIS, BOTH LUNG BASES. 4. I CANNOT EXCLUDE SMALL, BILATERAL EFFUSIONS.
[2019-12-18] MEDS: guaiFENesin SYRUP 100MG/5ML 200 MG/10 ML CUP PO PRN ×2 (16:34→23:21)
[2019-12-18] MEDS: BUDESONIDE 1 MG/2 ML NEBU INHALATION SCH ×2 (16:44→20:41)
[2019-12-18] MEDS: IPRATROPIUM-ALBUTEROL 3 ML NEB INHALATION SCH ×2 (16:44→20:41)
--- NOTE | 2019-12-18 17:31 | P.PN ---
Subjective Progress Note Date: 12/18/19 (delayed charting seen at 1230) Principal diagnosis: shortness of breath Patient is a 59-year-old male with COPD on chronic inhalers, GERD, and prior tobacco abuse who presented to the ER with complaints of breath, fever, and cough. In the ER he underwent an extensive evaluation. On arrival he was found have a temperature of 100.3, pulse 119, respirations 26. Approximately 20 minutes after arrival his fever spiked to 102. Initial laboratory analysis sh owed a sodium level of 136 was otherwise unremarkable. Chest x-ray showed no acute process. He was positive for influenza A. He was started on IV steroids, bronchodilators, and Tamiflu. He was admitted for further monitoring\\treatment of his influenza A. Patient seen and examined at bedside. He is feeling more short of breath today than yesterday. He is having diffuse wheezing with a nonproductive cough that is intermittently productive. He denies any chest discomfort, nausea, vomiting, or diarrhea. He states he is feeling "awful". Objective - Vital Signs Vital signs: Vital Signs Temp 98.6 F 12/18/19 07:00 Pulse 89 12/18/19 16:57 Resp 17 12/18/19 15:27 BP 130/62 12/18/19 07:00 Pulse Ox 91 L 12/18/19 07:00 Intake & Output 12/17/19 12/18/19 12/18/19 18:59 06:59 18:59 Intake Total 200 600 Balance 200 600 Intake: Intake, IV Titration 600 Amount Sodium Chloride 0.9% 1, 600 000 ml @ 100 mls/hr IV . Q10H [facility] Rx#:[id number] Oral 200 Other: # Voids 3 3 1 - Exam General: Ill appearing, mild distress, appears at stated age Derm: warm, dry Head: atraumatic, normocephalic, symmetric Eyes: EOMI, no lid lag, anicteric sclera Mouth: no lip lesion, mucus membranes moist Cardiovascular: S1S2 reg, no murmur, positive posterior tibial pulse bilateral, Lungs: diffuse wheezing bilateral , no accessory muscle use, 2 word conversational dyspnea Abdominal: soft, nontender to palpation, no guarding, no appreciable organomegaly Ext: no gross muscle atrophy, no edema, no contractures Neuro: CN II-XI grossly intact, no focal neuro deficits Psych: Alert, oriented, appropriate affect - Labs CBC & Chem 7: 12/18/19 06:41 12/16/19 20:24 Labs: Abnormal Lab Results - Last 24 Hours (Table) 12/18/19 Range/Units 06:41 Plt Count 116 L (150-450) k/uL Neutrophils # 8.2 H (1.3-7.7) k/uL Lymphocytes # 0.5 L (1.0-4.8) k/uL Microbiology - Last 24 Hours (Table) 12/16/19 20:38 Blood Culture - Preliminary Blood No Growth after 24 hours Assessment and Plan Assessment: Influenza A with sepsis -Continue with Tamiflu -Repeat chest x-ray in the morning to ensure no secondary pneumonia has formed -IV fluids completed and will discontinue COPD exacerbation -Switch from oral to IV steroids -Add budesonide and formoterol, changed to scheduled DuoNeb and when necessary -Continue with flutter valve -If no improvement in a.m. consult pulmonary - tessalon - yaryfesen GERD -PPI Normocytic anemia -Likely consumptive -Repeat CBC in a.m. DVT prophylaxis: Heparin Discussed with: Patient, nursing Anticipated discharge: 1-[address]: home A total of 35 minutes was spent on the care of this complex patient more than 50% of the time was spent in counseling and care coordination.
[2019-12-18] MEDS: FORMOTEROL FUMARATE 20 MCG/2 ML NEBU INHALATION SCH (20:41)
[2019-12-18] MEDS: ZOLPIDEM 5 MG TAB PO PRN (23:13)
[2019-12-19] MEDS: IPRATROPIUM-ALBUTEROL 3 ML NEB INHALATION SCH ×7 (01:33→23:50)
[2019-12-19] MEDS: methylPREDNISolone SOD SUCCI 125 MG/2 ML VIAL IV SCH ×4 (06:06→23:17)
[2019-12-19 06:52] LABS: HCT 48.2 % (39.0-53.0); HGB 15.2 gm/dL (13.0-17.5); MCH 28.8 pg (25.0-35.0); MCHC 31.6 g/dL (31.0-37.0); MCV 91.3 fL (80.0-100.0); Mean Platelet Volume 8.8; Platelet Count 145 k/uL (150-450); RBC 5.28 m/uL (4.30-5.90); RDW 13.5 % (11.5-15.5); WBC 7.2 k/uL (3.8-10.6)
--- NOTE | 2019-12-19 06:52 | XR ---
EXAMINATION TYPE: XR chest 1V portable DATE OF EXAM: 12/19/2019 HISTORY: pneumonia. REFERENCE: Previous study dated 12/18/2019. FINDINGS: The lungs are overinflated. The heart is mildly enlarged. There is some scarring or atelect asis at both lung bases. IMPRESSION: 1. COPD. 2. MILD CARDIOMEGALY. 3. SCARRING VERSUS ATELECTASIS, BOTH LUNG BASES.
[2019-12-19 07:07] LABS: African American GFR (CKD) >90 (>60 ml/min/1.73 sqM); Anion Gap 6 mmol/L; Blood Urea Nitrogen 27 mg/dL (9-20); Calcium 8.4 mg/dL (8.4-10.2); Carbon Dioxide 29 mmol/L (22-30); Chloride 104 mmol/L (98-107); Glucose 124 mg/dL (74-99); Magnesium 2.1 mg/dL (1.6-2.3); Non-African American GFR(CKD) >90 (>60 ml/min/1.73 sqM); Potassium 4.3 mmol/L (3.5-5.1); Sodium 139 mmol/L (137-145)
[2019-12-19] MEDS: HEPARIN SODIUM,PORCINE 5,000 UNIT/ML 1 ML VIAL SQ SCH ×3 (08:55→23:16)
[2019-12-19] MEDS: BUDESONIDE 1 MG/2 ML NEBU INHALATION SCH ×2 (08:55→19:13)
[2019-12-19] MEDS: FORMOTEROL FUMARATE 20 MCG/2 ML NEBU INHALATION SCH ×2 (08:55→19:13)
[2019-12-19] MEDS: PANTOPRAZOLE 40 MG TABLET PO SCH (09:28)
[2019-12-19] MEDS: OSELTAMIVIR 75 MG CAP PO SCH ×2 (09:29→19:33)
[2019-12-19] MEDS: LORATADINE 10 MG TAB PO SCH (09:29)
--- NOTE | 2019-12-19 09:59 | P.PN ---
Subjective Progress Note Date: 12/19/19 Principal diagnosis: shortness of breath Patient is a 59-year-old male with COPD on chronic inhalers, GERD, and prior tobacco abuse who presented to the ER with complaints of breath, fever, and cough. In the ER he underwent an extensive evaluation. On arrival he was found have a temperature of 100.3, pulse 119, respirations 26. Approximately 20 minutes after arrival his fever spiked to 102. Initial laboratory analysis showed a sodium level of 136 was otherwise unremarkable. Chest x-ray showed no acute process. He was positive for influenza A. He was started on IV steroids, bronchodilators, and Tamiflu. He was admitted for further monitoring\treatment of his influenza A. His breathing worsened after he was transitioned to oral steroids and his IV steroids were restarted. His bronchodilator regiment was optimized. Patient seen and examined at bedside. x He reports that his breathing is slightly improved from yesterday. His cough is more productive. Wheezing slightly less. Still significantly short of breath. No chest pain, nausea, v omiting, or diarrhea. Objective - Vital Signs Vital signs: Vital Signs Temp 98.6 F 12/19/19 07:00 Pulse 93 12/19/19 09:16 Resp 17 12/19/19 07:00 BP 119/74 12/19/19 07:00 Pulse Ox 95 12/19/19 07:00 Intake & Output 12/18/19 12/19/19 12/19/19 18:59 06:59 18:59 Intake Total 600 Balance 600 Intake: Intake, IV Titration 600 Amount Sodium Chloride 0.9% 1, 600 000 ml @ 100 mls/hr IV . Q10H [facility] Rx#:[id number] Other: # Voids 1 1 - Exam General: ill appearing, mild distress, appears at stated age Derm: warm, dry Head: atraumatic, normocephalic, symmetric Eyes: EOMI, no lid lag, anicteric sclera Mouth: no lip lesion, mucus membranes dry Cardiovascular: S1S2 reg, no murmur, positive posterior tibial pulse bilateral, Lungs: wheeze bilateral bases, ronchi bilateral bases , no accessory muscle use, 3 word conversational dyspnea Abdominal: soft, nontender to palpation, no guarding, no appreciable o rganomegaly Ext: no gross muscle atrophy, no edema, no contractures Neuro: CN II-XI grossly intact, no focal neuro deficits Psych: Alert, oriented, appropriate affect - Labs CBC & Chem 7: 12/19/19 06:35 12/19/19 06:35 Labs: Abnormal Lab Results - Last 24 Hours (Table) 12/19/19 12/19/19 Range/Units 06:35 06:35 Plt Count 145 L (150-450) k/uL BUN 27 H (9-20) mg/dL Glucose 124 H (74-99) mg/dL Microbiology - Last 24 Hours (Table) 12/16/19 20:38 Blood Culture - Preliminary Blood No Growth after 48 hours Assessment and Plan Assessment: Influenza A with sepsis -Continue with Tamiflu -Repeat chest x-ray without signs of secondary pneumonia COPD exacerbation -Continue IV steroids - budesonide and formoterol, scheduled DuoNeb and when necessary -Continue with flutter valve - tessalon - guiafesen GERD -PPI Thrombocytopenia -Likely consumptive DVT prophylaxis: Heparin Discussed with: Patient, nursing Anticipated discharge: 1-[address]: home A total of 25 minutes was spent on the care of this complex patient more than 50% of the time was spent in counseling and care coordination.
[2019-12-19] MEDS: FLUTICASONE 50MCG/SPRAY NASAL 16GM EA NOSTRIL PRN (19:25)
[2019-12-19] MEDS: ZOLPIDEM 5 MG TAB PO PRN (23:15)
[2019-12-19] MEDS: guaiFENesin SYRUP 100MG/5ML 200 MG/10 ML CUP PO PRN (23:22)
[2019-12-20] MEDS: IPRATROPIUM-ALBUTEROL 3 ML NEB INHALATION SCH ×5 (03:39→20:18)
[2019-12-20] MEDS: methylPREDNISolone SOD SUCCI 125 MG/2 ML VIAL IV SCH (05:26)
[2019-12-20] MEDS: HEPARIN SODIUM,PORCINE 5,000 UNIT/ML 1 ML VIAL SQ SCH ×3 (08:51→23:52)
[2019-12-20] MEDS: guaiFENesin SYRUP 100MG/5ML 200 MG/10 ML CUP PO PRN ×2 (08:51→16:56)
[2019-12-20] MEDS: FLUTICASONE 50MCG/SPRAY NASAL 16GM EA NOSTRIL PRN (08:51)
[2019-12-20] MEDS: PANTOPRAZOLE 40 MG TABLET PO SCH (08:52)
[2019-12-20] MEDS: OSELTAMIVIR 75 MG CAP PO SCH ×2 (08:52→20:48)
[2019-12-20] MEDS: LORATADINE 10 MG TAB PO SCH (08:52)
[2019-12-20] MEDS: BUDESONIDE 1 MG/2 ML NEBU INHALATION SCH ×2 (09:13→20:18)
[2019-12-20] MEDS: FORMOTEROL FUMARATE 20 MCG/2 ML NEBU INHALATION SCH ×2 (09:13→20:18)
[2019-12-20 11:42] LABS: Glucose,Whole Blood 115 mg/dL (75-99)
[2019-12-20] MEDS ORDERED: diphenhydrAMINE 25 MG CAP PO PRN (11:55)
[2019-12-20] MEDS: predniSONE 20 MG TAB PO SCH (12:46)
--- NOTE | 2019-12-20 17:15 | P.PN ---
Subjective Progress Note Date: 12/20/19 (delayed charting seen at 1200) Principal diagnosis: shortness of breath Patient is a 59-year-old male with COPD on chronic inhalers, GERD, and prior tobacco abuse who presented to the ER with complaints of breath, fever, and cough. In the ER he underwent an extensive evaluation. On arrival he was found have a temperature of 100.3, pulse 119, respirations 26. Approximately 20 minutes after arrival his fever spiked to 102. Initial laboratory analysis sh owed a sodium level of 136 was otherwise unremarkable. Chest x-ray showed no acute process. He was positive for influenza A. He was started on IV steroids, bronchodilators, and Tamiflu. He was admitted for further monitoring\treatment of his influenza A. His breathing worsened after he was transitioned to oral steroids and his IV steroids were restarted. His bronchodilator regiment was optimized. He continued to have slow improvement in his wheezing. His fevers remained abated starting 12/17. Patient seen and examined at bedside. Finally starting to feel better, cough is productive, no fevers or chills, still with wheezing, eating, has been walking to the bathroom. Objective - Vital Signs Vital signs: Vital Signs Temp 97.7 F 12/20/19 15:00 Pulse 80 12/20/19 16:02 Resp 18 12/20/19 15:00 BP 119/61 12/20/19 15:00 Pulse Ox 94 L 12/20/19 15:00 Intake & Output 12/19/19 12/20/19 12/20/19 18:59 06:59 18:59 Intake Total 400 Balance 400 Intake: Oral 400 Other: Voiding Method Toilet Toilet # Voids 3 1 3 - Exam General: non toxic , no distress, appears at stated age Derm: warm, dry Head: atraumatic, normocephalic, symmetric Eyes: EOMI, no lid lag, anicteric sclera Mouth: no lip lesion, mucus membranes moist Cardiovascular: S1S2 reg, no murmur, positive posterior tibial pulse bilateral, Lungs: wheeze bilateral prolonged expiratory phase , no accessory muscle use, 5 word conversational dyspnea Abdominal: soft, nontender to palpation, no guarding, no appreciable organomegaly Ext: no gross muscle atrophy, no edema, no contractures Neuro: CN II-XI grossly intact, no focal neuro deficits Psych: Alert, oriented, appropriate affect - Labs CBC & Chem 7: 12/19/19 06:35 12/19/19 06:35 Labs: Abnormal Lab Results - Last 24 Hours (Table) 12/20/19 Range/Units 11:40 POC Glucose (mg/dL) 115 H (75-99) mg/dL Microbiology - Last 24 Hours (Table) 12/16/19 20:38 Blood Culture - Preliminary Blood No Growth after 72 hours Assessment and Plan Assessment: COPD exacerbation -Transition to oral steroids - budesonide and formoterol, scheduled DuoNeb and when necessary -Continue with flutter valve - tessalon - guiafesen Influenza A -Continue with Tamiflu done tomorrow -Repeat chest x-ray without signs of secondary pneumonia GERD -PPI Thrombocytopenia -Likely consumptive - improving, no need to recheck Sepsis, resolved DVT prophylaxis: Heparin Discussed with: Patient, nursing Anticipated discharge: likely in AM Anticipated discharge place: home A total of 25 minutes was spent on the care of this complex patient more than 50% of the time was spent in counseling and care coordination.
[2019-12-20] MEDS: ZOLPIDEM 5 MG TAB PO PRN (21:54)
[2019-12-21] MEDS: IPRATROPIUM-ALBUTEROL 3 ML NEB INHALATION SCH ×4 (00:29→11:02)
[2019-12-21 07:30] VITALS: BP 125/67; RESP 16; TEMP 98.5
[2019-12-21] MEDS: BUDESONIDE 1 MG/2 ML NEBU INHALATION SCH (07:57)
[2019-12-21] MEDS: FORMOTEROL FUMARATE 20 MCG/2 ML NEBU INHALATION SCH (07:57)
[2019-12-21 08:17] VITALS: PULSE 88
[2019-12-21] MEDS: predniSONE 20 MG TAB PO SCH (09:10)
[2019-12-21] MEDS: OSELTAMIVIR 75 MG CAP PO SCH (09:11)
[2019-12-21] MEDS: PANTOPRAZOLE 40 MG TABLET PO SCH (09:11)
[2019-12-21] MEDS: HEPARIN SODIUM,PORCINE 5,000 UNIT/ML 1 ML VIAL SQ SCH (09:11)
[2019-12-21] MEDS: LORATADINE 10 MG TAB PO SCH (09:11)
--- NOTE | 2019-12-21 11:13 | P.DS ---
Providers Date of admission: 12/18/19 15:22 Expected date of discharge: 12/21/19 Attending physician: Prem Bridges MD Primary care physician: Grace Gardner [place] [facility] Course: Discharge Diagnosis: Influenza A with sepsis COPD exacerbation GERD Thrombocytopenia Hospital Course: Patient is a 59-year-old male with COPD on chronic inhalers, GERD, and prior tobacco abuse who presented to the ER with complaints of breath, fever, and cough. In the ER he underwent an extensive evaluation. On arrival he was found have a temperature of 100.3, pulse 119, respirations 26. Approximately 20 minutes after arrival his fever spiked to 102. Initial laboratory analysis showed a sodium level of 136 was otherwise unremarkable. Chest x-ray showed no acute process. He was positive for influenza A. He was started on IV steroids, bronchodilators, and Tamiflu. He was admitted for further monitoring\treatment of his influenza A. His breathing worsened after he was transitioned to oral steroids and his IV steroids were restarted. His bronchodilator regiment was optimized. He continued to have slow improvement in his wheezing. His fevers remained abated starting 12/17. He conitnued to improve and his steroids were transitioned to oral. He was able to walk in the halls and maintained his O2 sat. He was determined stable fro discharge home. He will complete a prolonged oral steroid vanessa. He will stay off work for the next 7 days as he has exposure to fumes and dyes at work. He will follow-up with his PCP and [employer] in the next week. Patient seen and examined at bedside. Has been up and walking around, no chest pain, still wtih wheezing but getting better, Shortness of breath improving. Vital signs reviewed and stable. General: non toxic, no distress, appears at stated age Derm: warm, dry Head: atraumatic, normocephalic, symmetric Eyes: EOMI, no lid lag, anicteric sclera Mouth: no lip lesion, mucus membranes moist Cardiovascular: S1S2 reg, no murmur, positive posterior tibial pulse bilateral, Lungs: bilateral expiratory wheeze at bases , no accessory muscle use Abdominal: soft, nontender to palpation, no guarding, no appreciable o rganomegaly Ext: no gross muscle atrophy, no edema, no contractures Neuro: CN II-XI grossly intact, no focal neuro deficits Psych: Alert, oriented, appropriate affect A total of 35 minutes of time were spent preparing this complex discharge summary . Plan - Discharge Summary Discharge Rx Participant: No New Discharge Prescriptions: New predniSONE 0 mg PO DAILY #40 tab Continue Pantoprazole [Protonix] 40 mg PO DAILY Fluticasone Nasal [place] [Flonase Nasal [place]] 1 spray EA NOSTRIL DAILY Loratadine [Claritin] 10 mg PO DAILY Albuterol Sulfate [Proair Hfa] 2 puff INHALATION RT-Q4H PRN PRN Reason: Shortness Of Breath Fluticasone/Umeclidin/Vilanter [Trelegy Ellipta 100-62.5-25] 1 puff INHALATION RT-DAILY Discharge Medication List Fluticasone Nasal [place] [Flonase Nasal [place]] 1 spray EA NOSTRIL DAILY 02/03/18 [History] Pantoprazole [Protonix] 40 mg PO DAILY 02/03/18 [History] Albuterol Sulfate [Proair Hfa] 2 puff INHALATION RT-Q4H PRN 12/16/19 [History] Fluticasone/Umeclidin/Vilanter [Trelegy Ellipta 100-62.5-25] 1 puff INHALATION RT-DAILY 12/16/19 [History] Loratadine [Claritin] 10 mg PO DAILY 12/16/19 [History] predniSONE 0 mg PO DAILY #40 tab 12/21/19 [Rx] Follow up Appointment(s)/Referral(s): Grace Gardner MD [Primary Care Provider] - 1-2 days Activity/Diet/Wound Care/Special Instructions: Activity: as tolerated Diet: regular Special Instructions: Follow-up Dr. Escamilla in 7-10 days Return if: Recurrent fevers (greater than 100.3), worsening cough, worsening shortness of breath, nausea Discharge/Stand Alone Forms: Work/Release Restrictions Form Discharge Disposition: HOME SELF-CARE
== END 2019-12-21 12:48 | disposition home or self-care (01) | DRG 872 ==
LOC: EC 20:04 → 5NMEDONC 21:14 → 4SSUR 21:39 → OBSVTOIN 12-18 15:22
PROVIDERS: ADMIT Internal Medicine; ATTEND Internal Medicine
DX: A41.89 Other specified sepsis (principal); J44.1 Chronic obstructive pulmonary disease with (acute) exacerbation; J10.1 Influenza due to other identified influenza virus with other respiratory manifestations; K21.9 Gastro-esophageal reflux disease without esophagitis; D69.6 Thrombocytopenia, unspecified; D64.9 Anemia, unspecified; Z79.52 Long term (current) use of systemic steroids; Z79.899 Other long term (current) drug therapy; Z90.89 Acquired absence of other organs; Z87.891 Personal history of nicotine dependence; Z80.0 Family history of malignant neoplasm of digestive organs; Z83.79 Family history of other diseases of the digestive system; Z82.49 Family history of ischemic heart disease and other diseases of the circulatory system; Z79.51 Long term (current) use of inhaled steroids
CPT/HCPCS: 36415; 71045; 71046; 80048; 80053; 83605; 83735; 85025; 85027; 87040; 87502; 93005; 94640; 94667; 94760; 96361; 96374; 99285

== ENCOUNTER 2020-04-01 20:44 | Emergency (ER) | payer OTHER ==
[2020-04-01 21:25] VITALS: TEMP 97.8
--- NOTE | 2020-04-01 21:38 | XR ---
EXAMINATION TYPE: XR soft tissue neck DATE OF EXAM: 04/01/2020 COMPARISON: NONE HISTORY: Difficulty swallowing TECHNIQUE: 3 views FINDINGS: Epiglottis is normal. Subglottic trachea appears normal. Prevertebral soft tissues appear n ormal. Tonsils and adenoids are within normal limits. IMPRESSION: Negative cervical soft tissue exam.
--- NOTE | 2020-04-01 21:50 | ED ---
General Adult HPI - General Chief complaint: Upper Respiratory Infection Stated complaint: Throat irritation Time Seen by Provider: 04/01/20 21:04 Source: patient Mode of arrival: ambulatory Limitations: no limitations - History of Present Illness Initial comments: 59-year-old male patient presents to the emergency department today for evaluation of throat irritation, itching, and facial pressure. Patient states symptoms have been present for the last 6 days. States that he did start eating popcorn for the last 3 weeks and is concerned he may have a shell stuck in his throat. States that he has tried itching the area with his toothbrush and he has had some mild bleeding related to this. He states that over the last few weeks he has been having a lot of facial pressure and feels like his ears are plugged. He denies any fever or chills. Denies any cough or congestion. Patient denies any recent rash, shortness of breath, chest pain, abdominal pain, nausea, vomiting, diarrhea, constipation, back pain, numbness, tingling, dizziness, weakness, hematuria, dysuria, urinary urgency, urinary frequency, headache, visual changes, or any other complaints. - Related Data Home Medications Medication Instructions Recorded Confirmed Fluticasone Nasal [place] [Flonase 1 spray EA NOSTRIL DAILY 02/03/18 12/16/19 Nasal [place]] Pantoprazole [Protonix] 40 mg PO DAILY 02/03/18 12/16/19 Albuterol Sulfate [Proair Hfa] 2 puff INHALATION RT-Q4H PRN 12/16/19 12/16/19 Fluticasone/Umeclidin/Vilanter 1 puff INHALATION RT-DAILY 12/16/19 12/16/19 [Trelegy Ellipta 100-62.5-25] Loratadine [Claritin] 10 mg PO DAILY 12/16/19 12/16/19 Previous Rx's Medication Instructions Recorded predniSONE 0 mg PO DAILY #40 tab 12/21/19 Pseudoephedrine HCl [Sudafed] 30 mg PO Q4HR #18 tab 04/01/20 methylPREDNISolone [Medrol Dose 4 mg PO DIRECTED #1 pack 04/01/20 Pack] Allergies Allergy/AdvReac Type Severity Reaction Status Date / Time No Known Allergies Allergy Verified 12/16/19 21:41 Review of Systems ROS Statement: Those systems with pertinent positive or pertinent negative responses have been documented in the HPI. ROS Other: All systems not noted in ROS Statement are negative. Past Medical History Past Medical History: Asthma, COPD, GERD/Reflux History of Any Multi-Drug Resistant Organisms: None Reported Past Surgical History: Orthopedic Surgery, Tonsillectomy Additional Past Surgical History / Comment(s): rt hand Past Anesthesia/Blood Transfusion Reactions: No Reported Reaction Past Psychological History: No Psychological Hx Reported Smoking Status: Former smoker Past Alcohol Use History: Occasional Past Drug Use History: None Reported - Past Family History Sister(s) Additional Family Medical History / Comment(s): chrohns Mother Family Medical History: Cancer Additional Family Medical History / Comment(s): colon ca diverticulitis Father Family Medical History: Myocardial Infarction ([place]) Additional Family Medical History / Comment(s): heart stent General Exam Limitations: no limitations General appearance: alert, in no apparent distress, other (This is a well- developed, well-nourished adult male patient in no acute distress. Vital signs upon presentation are temperature 100.0F, pulse 108, respirations 19, blood pressure 154/96, pulse ox 96% on room air.) ENT exam: Present: normal exam, mucous membranes moist, TM's normal bilaterally (Pearly with no effusion) Neck exam: Present: normal inspection. Absent: tenderness, meningismus, lymphadenopathy Respiratory exam: Present: normal lung sounds bilaterally. Absent: respiratory distress, wheezes, rales, rhonchi, stridor Cardiovascular Exam: Present: regular rate, normal rhythm, normal heart sounds. Absent: systolic murmur, diastolic murmur, rubs, gallop, clicks Neurological exam: Present: alert, oriented X3, CN II-XII intact Psychiatric exam: Present: normal affect, normal mood Skin exam: Present: warm, dry, intact, normal color. Absent: rash Course Vital Signs 04/01/20 04/01/20 04/01/20 20:52 21:18 22:18 Temperature 100.0 F H 97.8 F Pulse Rate 108 H 97 Respiratory 19 17 Rate Blood Pressure 154/96 106/84 O2 Sat by Pulse 96 93 L Oximetry Medical Decision Making - Medical Decision Making 59-year-old male patient presents to the emergency department today for evaluation of throat irritation and facial pressure. Physical examination is relatively unremarkable. Lungs are clear to auscultation with good air movement. Soft tissue neck x-ray was performed was negative. This has afebrile after multiple rechecks. He'll be given prescription for Sudafed and Medrol Dosepak for likely post nasal drip. Patient is instructed to complete his medications and to follow-up with ENT specialty if his symptoms aren't improved. He is instructed follow up his primary care physician for recheck in 1-2 days. Return parameters discussed in detail. He verbalizes understanding and agrees with this plan. - Radiology Data Radiology results: report reviewed, image reviewed X-ray of the soft tissue of the neck was performed. Report was reviewed in its entirety. Impression by Dr. Mathews shows negative cervical soft tissue exam. Disposition Clinical Impression: Post-nasal drip, Throat irritation, Sinus congestion Disposition: HOME SELF-CARE Condition: Good Instructions (If sedation given, give patient instructions): Pseudoephedrine (By mouth), Postnasal Drip (DC) Additional Instructions: Take medications as directed. Follow up with ENT specialist if symptoms do not improve once medication is complete. Return to the emergency department immediately for any new, worsening, or concerning symptoms. Prescriptions: methylPREDNISolone [Medrol Dose Pack] 4 mg PO DIRECTED #1 pack Pseudoephedrine HCl [Sudafed] 30 mg PO Q4HR #18 tab Is patient prescribed a controlled substance at d/c from ED?: No Referrals: Grace Gardner MD [Primary Care Provider] - 1-2 days Jorge Alberto Jhaveri DO [Doctor of Osteopathic Medicine] - 1-2 days Time of Disposition: 22:02
[2020-04-01] MEDS ORDERED: PSEUDOEPHEDRINE 30 MG TAB PO STA (21:55)
[2020-04-01 22:22] VITALS: BP 106/84; PULSE 97; RESP 17
== END 2020-04-01 22:22 | disposition home or self-care (01) ==
LOC: EC 20:44
DX: J39.2 Other diseases of pharynx (principal); R09.81 Nasal congestion; R09.82 Postnasal drip; J44.9 Chronic obstructive pulmonary disease, unspecified; K21.9 Gastro-esophageal reflux disease without esophagitis; Z79.51 Long term (current) use of inhaled steroids; Z79.899 Other long term (current) drug therapy; Z87.891 Personal history of nicotine dependence
CPT/HCPCS: 70360; 99283

== ENCOUNTER 2020-04-12 13:14 | Emergency (ER) | payer OTHER ==
[2020-04-12 13:33] VITALS: RESP 18
[2020-04-12] MEDS ORDERED: HYDROcodone/APAP 5-325MG 1 EACH TAB PO STA (14:16)
--- NOTE | 2020-04-12 14:47 | ED ---
Fall HPI - General Chief Complaint: Fall Stated Complaint: Fall Time Seen by Provider: 04/12/20 14:13 Source: patient Mode of arrival: ambulatory - History of Present Illness Initial Comments: 5-year-old male presenting today for chief complaint of left rib pain. Patient states she was sitting in a chair in the lawn at work, when the chair tipped causing him to fall over in the grass on his right side-he states it would been a soft landing secondary to grass and short distance however his left elbow pushed into his left side when he fell. He states he has no real increased of SOB from his baseline chronic dyspnea from COPD, but states when he takes a deep breath he has pain in his left lower ribs. Patient denies anterior chest pain, denies experiencing this symptom prior to falling. Patient denies leg swelling . - Related Data Home Medications Medication Instructions Recorded Confirmed Fluticasone Nasal [place] [Flonase 1 spray EA NOSTRIL DAILY 02/03/18 12/16/19 Nasal [place]] Pantoprazole [Protonix] 40 mg PO DAILY 02/03/18 12/16/19 Albuterol Sulfate [Proair Hfa] 2 puff INHALATION RT-Q4H PRN 12/16/19 12/16/19 Fluticasone/Umeclidin/Vilanter 1 puff INHALATION RT-DAILY 12/16/19 12/16/19 [Trelegy Ellipta 100-62.5-25] Loratadine [Claritin] 10 mg PO DAILY 12/16/19 12/16/19 Previous Rx's Medication Instructions Recorded predniSONE 0 mg PO DAILY #40 tab 12/21/19 Pseudoephedrine HCl [Sudafed] 30 mg PO Q4HR #18 tab 04/01/20 methylPREDNISolone [Medrol Dose 4 mg PO DIRECTED #1 pack 04/01/20 Pack] Cyclobenzaprine [Flexeril] 5 mg PO TID 5 Days #15 tablet 04/12/20 Allergies Allergy/AdvReac Type Severity Reaction Status Date / Time No Known Allergies Allergy Verified 04/12/20 13:33 Review of Systems ROS Statement: Those systems with pertinent positive or pertinent negative responses have been documented in the HPI. ROS Other: All systems not noted in ROS Statement are negative. Past Medical History Past Medical History: Asthma, COPD, GERD/Reflux History of Any Multi-Drug Resistant Organisms: None Reported Past Surgical History: Orthopedic Surgery, Tonsillectomy Additional Past Surgical History / Comment(s): rt hand Past Anesthesia/Blood Transfusion Reactions: No Reported Reaction Past Psychological History: No Psychological Hx Reported Smoking Status: Former smoker Past Alcohol Use History: None Reported Past Drug Use History: None Reported - Past Family History Sister(s) Additional Family Medical History / Comment(s): chrohns Mother Family Medical History: Cancer Additional Family Medical History / Comment(s): colon ca diverticulitis Father Family Medical History: Myocardial Infarction ([place]) Additional Family Medical History / Comment(s): heart stent General Exam - General Exam Comments Initial Comments: General: The patient is awake and alert, in no distress, and does not appear acutely ill. Eye: Pupils are equal, round and reactive to light, extra-ocular movements are intact. No nystagmus. There is normal conjunctiva bilaterally. No signs of icterus. Ears, nose, mouth and throat: There are moist mucous membranes and no oral lesions. Neck: The neck is supple, there is no tenderness or JVD. Cardiovascular: There is a regular rate and rhythm. No murmur, rub or gallop is appreciated. Respiratory: Lungs are clear to auscultation, respirations are non-labored, breath sounds are equal. No wheezes, stridor, rales, or rhonchi. Gastrointestinal: [Soft, non-distended, non-tender abdomen without masses or organomegaly noted. There is no rebound or guarding present. No CVA tenderness. Bowel sounds are unremarkable.] Musculoskeletal: Normal ROM, no tenderness. Strength 5/5. Sensation intact. Pulses equal bilaterally 2+. Neurological: A&O x 3. CN II-XII intact, There are no obvious motor or sensory deficits. Coordination appears grossly intact. Speech is normal. Skin: Skin is warm and dry and no rashes or lesions are noted. Psychiatric: Cooperative, appropriate mood & affect, normal judgment. Limitations: no limitations Course Vital Signs 04/12/20 04/12/20 13:30 15:56 Temperature 98.3 F 97.9 F Pulse Rate 91 81 Respiratory 18 18 Rate Blood Pressure 126/84 145/78 O2 Sat by Pulse 97 97 Oximetry Medical Decision Making - Medical Decision Making 59 male presenting for left rib pain after fall. Chest x-ray revealed no displaced rib fractures. Patient had no pneumothorax. Patient actually amount of air. Patient was provided incentive spirometer as well as pain medication in the emergency department. I discussed the importance of primary care follow-up and return parameters patient is agreeable to discharge. Denied any other areas of injury. Discussed case in detail with Dr. Cowan who was agreeable to care plan. Disposition Clinical Impression: Rib pain on left side Disposition: HOME SELF-CARE Condition: Good Instructions (If sedation given, give patient instructions): Rib Contusion (ED) Additional Instructions: Please use medication as discussed. Please follow-up with family doctor in the next 2 days. Use incentive spirometer once per hour while awake for 1st 5 days, Please return to emergency room if the symptoms increase or worsen or for any other concerns. Prescriptions: Cyclobenzaprine [Flexeril] 5 mg PO TID 5 Days #15 tablet Is patient prescribed a controlled substance at d/c from ED?: No Referrals: Grace Gardner MD [Primary Care Provider] - 1-2 days Time of Disposition: 15:26
--- NOTE | 2020-04-12 15:17 | XR ---
EXAMINATION TYPE: XR ribs LT w pa chest xray DATE OF EXAM: 04/12/2020 CLINICAL HISTORY: Chest and left lower anterior rib pain after falling injury. TECHNIQUE: Single frontal view of the chest is obtained. A frontal and oblique images of the left-rose ed ribs. COMPARISON: Chest x-ray December 19, 2019 FINDINGS: There is chronic parenchymal change without suspicious focal air space opacity, pleural ef fusion, or pneumothorax seen. The cardiac silhouette size is stable and upper limits of normal. Th e osseous structures are intact. Dedicated images of left-sided ribs show no acute displaced fracture. Overlying soft tissue is unrema rkable. IMPRESSION: 1. Chronic parenchymal change without acute pulmonary process. 2. No acute displaced left-sided rib fractures are seen.
[2020-04-12] MEDS ORDERED: ACET/COD 300 MG/30 MG STARTER PACK 6 TAB BTL PO STA (15:25)
[2020-04-12 15:57] VITALS: BP 145/78; PULSE 81; TEMP 97.9
== END 2020-04-12 15:57 | disposition home or self-care (01) ==
LOC: EC 13:14
DX: R07.81 Pleurodynia (principal); J44.9 Chronic obstructive pulmonary disease, unspecified; K21.9 Gastro-esophageal reflux disease without esophagitis; Z79.51 Long term (current) use of inhaled steroids; Z79.899 Other long term (current) drug therapy; Z98.890 Other specified postprocedural states; Z87.891 Personal history of nicotine dependence; W07.XXXA Fall from chair, initial encounter; Y93.89 Activity, other specified; Y92.89 Other specified places as the place of occurrence of the external cause
CPT/HCPCS: 99283

== ENCOUNTER 2020-04-12 20:49 | Emergency (ER) | payer OTHER ==
[2020-04-12] MEDS ORDERED: HYDROmorphone 1 MG/ML 1 ML SYRINGE IM STA (21:19)
[2020-04-12] MEDS ORDERED: LIDOCAINE 5% PATCH TOPICAL STA (21:19)
--- NOTE | 2020-04-12 22:01 | XR ---
EXAMINATION TYPE: XR chest 2V DATE OF EXAM: 04/12/2020 COMPARISON: 04/12/2020 3:00 PM HISTORY: Left lower rib pain TECHNIQUE: 2 views FINDINGS: Heart and mediastinum are normal. Lungs are clear of consolidation. There is coarse interst itial density in the lower lung duong. There is no sign of pleural effusion or pneumothorax. There i s no heart failure. IMPRESSION: Mild interstitial infiltrates and subsegmental atelectasis at the lung bases unchanged. N ormal heart.
[2020-04-12 22:22] VITALS: RESP 18
--- NOTE | 2020-04-12 22:40 | ED ---
Fall HPI - General Chief Complaint: Fall Stated Complaint: Fall, rib injury - revisit Time Seen by Provider: 04/12/20 21:11 Source: patient Mode of arrival: ambulatory - History of Present Illness Initial Comments: 59-year-old male patient presents to the emergency department today for evaluation of left rib pain. The patient did have a fall in a chair earlier today. States he was sitting in a chair and started to fall backwards, states rather than falling backwards and hitting his head he went to the side landing on his left arm. States he did have immediate onset of rib pain on that side. He was seen and evaluated here earlier had x-rays which were negative for fracture. Was discharged with incentive spirometry and Tylenol with Codeine. States he did take a Tylenol with Codeine but it doesn't seem to be helping. States he is having difficulty with spasms to that side and states it seems harder to breathe. He denies taking any other medications for his symptoms. Denies any other injuries. Denies any cough or hemoptysis. Patient denies any headache, neck pain, back pain, chest pain, shortness of breath, dizziness, weakness, abdominal pain, nausea, vomiting, or difficulties with bowel movements or urination. - Related Data Home Medications Medication Instructions Recorded Confirmed Fluticasone Nasal [place] [Flonase 1 spray EA NOSTRIL DAILY 02/03/18 12/16/19 Nasal [place]] Pantoprazole [Protonix] 40 mg PO DAILY 02/03/18 12/16/19 Albuterol Sulfate [Proair Hfa] 2 puff INHALATION RT-Q4H PRN 12/16/19 12/16/19 Fluticasone/Umeclidin/Vilanter 1 puff INHALATION RT-DAILY 12/16/19 12/16/19 [Trelegy Ellipta 100-62.5-25] Loratadine [Claritin] 10 mg PO DAILY 12/16/19 12/16/19 Previous Rx's Medication Instructions Recorded predniSONE 0 mg PO DAILY #40 tab 12/21/19 Pseudoephedrine HCl [Sudafed] 30 mg PO Q4HR #18 tab 04/01/20 methylPREDNISolone [Medrol Dose 4 mg PO DIRECTED #1 pack 04/01/20 Pack] Cyclobenzaprine [Flexeril] 5 mg PO TID 5 Days #15 tablet 04/12/20 Hydrocodone/Acetaminophen [[place] 1 tab PO Q6HR PRN 3 Days #12 tab 04/12/20 7.5-325] Lidocaine 5% Patch [Lidoderm] 1 patch TOPICAL DAILY #5 patch 04/12/20 Lidocaine 5% Patch [Lidoderm] 1 patch TOPICAL DAILY #5 patch 04/12/20 Naproxen [EC-Naprosyn] 500 mg PO BID PRN #30 tablet. 04/12/20 Allergies Allergy/AdvReac Type Severity Reaction Status Date / Time No Known Allergies Allergy Verified 04/12/20 20:55 Review of Systems ROS Statement: Those systems with pertinent positive or pertinent negative responses have been documented in the HPI. ROS Other: All systems not noted in ROS Statement are negative. Past Medical History Past Medical History: Asthma, COPD, GERD/Reflux History of Any Multi-Drug Resistant Organisms: None Reported Past Surgical History: Orthopedic Surgery, Tonsillectomy Additional Past Surgical History / Comment(s): rt hand Past Anesthesia/Blood Transfusion Reactions: No Reported Reaction Past Psychological History: No Psychological Hx Reported Smoking Status: Former smoker Past Alcohol Use History: None Reported Past Drug Use History: None Reported - Past Family History Sister(s) Additional Family Medical History / Comment(s): chrohns Mother Family Medical History: Cancer Additional Family Medical History / Comment(s): colon ca diverticulitis Father Family Medical History: Myocardial Infarction ([place]) Additional Family Medical History / Comment(s): heart stent General Exam Limitations: no limitations General appearance: alert, in no apparent distress, other (This is a well- developed, well-nourished adult male patient in no acute distress. Vital signs upon presentation are temperature 98.7F, pulse 62, respirations 20, blood pressure 149/119, pulse ox 94% on room air.) Eye exam: Present: normal appearance, PERRL, EOMI. Absent: scleral icterus, conjunctival injection, periorbital swelling ENT exam: Present: normal exam, normal oropharynx, mucous membranes moist Respiratory exam: Present: normal lung sounds bilaterally, chest wall tenderness (Left lateral over ribs #6 and 7.). Absent: respiratory distress, wheezes, rales, rhonchi, stridor Cardiovascular Exam: Present: regular rate, normal rhythm, normal heart sounds. Absent: systolic murmur, diastolic murmur, rubs, gallop, clicks GI/Abdominal exam: Present: soft, normal bowel sounds. Absent: distended, tenderness, guarding, rebound, rigid Neurological exam: Present: alert, oriented X3, CN II-XII intact Psychiatric exam: Present: normal affect, normal mood Skin exam: Present: warm, dry, intact, normal color. Absent: rash Course Vital Signs 04/12/20 04/12/20 04/12/20 20:50 22:21 22:52 Temperature 98.7 F 97.0 F L Pulse Rate 62 74 Respiratory 20 18 18 Rate Blood Pressure 149/119 132/78 O2 Sat by Pulse 94 L 98 Oximetry Medical Decision Making - Medical Decision Making 59-year-old male patient presented to the emergency department today for evaluation of left-sided rib pain. Physical examination did reveal tenderness over ribs #6 and 7. X-ray was repeated due to decreased oxygen saturation and reported shortness of breath, x-ray showed normal lung expansion. I did review x-rays from earlier there did does appear to be possible fracture of rib #6. He does have incentive spirometry at home. We'll give prescription for Lidoderm patches, naproxen, and [place]. Instructed to follow-up with his primary care physician for recheck in 1-2 days. Return parameters were discussed in detail. He verbalizes understanding and agrees with this plan. - Radiology Data Radiology results: report reviewed, image reviewed Two-view x-ray of the chest is obtained. Report was reviewed in its entirety. Impression by Dr. Mathews shows mild interstitial infiltrate and subsegmental atelectasis at the lung bases unchanged. Normal heart. Disposition Clinical Impression: Rib fracture Disposition: HOME SELF-CARE Condition: Good Instructions (If sedation given, give patient instructions): Rib Fracture (ED) Additional Instructions: Continue performing coughing and deep breathing exercises. Take pain medication as directed. Apply ice to the painful areas. Follow-up through primary care physician for recheck tomorrow. Return to the emergency department immediately for any new, worsening, or concerning symptoms. Prescriptions: Naproxen [EC-Naprosyn] 500 mg PO BID PRN #[address] tablet.[address] KAN Reason: Pain Lidocaine 5% Patch [Lidoderm] 1 patch TOPICAL DAILY #5 patch Lidocaine 5% Patch [Lidoderm] 1 patch TOPICAL DAILY #5 patch Hydrocodone/Acetaminophen [[place] 7.5-325] 1 tab PO Q6HR PRN 3 Days #12 tab PRN Reason: Pain Is patient prescribed a controlled substance at d/c from ED?: Yes When asked, does pt state using other controlled substances?: No If prescribed controlled substance>3 days was MAPS reviewed?: Prescribed <3 Days If opioid is for acute pain is fill amount 7 days or less?: Yes If Rx opioid, was Start Talking consent form obtained?: Yes Referrals: Grace Gardner MD [Primary Care Provider] - 1-2 days Time of Disposition: 22:40
[2020-04-12 22:53] VITALS: BP 132/78; PULSE 74; TEMP 97
== END 2020-04-12 22:53 | disposition home or self-care (01) ==
LOC: EC 20:49
DX: S22.32XA Fracture of one rib, left side, initial encounter for closed fracture (principal); J44.9 Chronic obstructive pulmonary disease, unspecified; K21.9 Gastro-esophageal reflux disease without esophagitis; Z79.51 Long term (current) use of inhaled steroids; Z79.899 Other long term (current) drug therapy; Z98.890 Other specified postprocedural states; Z87.891 Personal history of nicotine dependence; W07.XXXA Fall from chair, initial encounter; Y93.89 Activity, other specified
CPT/HCPCS: 71046; 96372; 99283; J1170

== ENCOUNTER 2021-06-24 08:36 | Inpatient (IN) | payer OTHER ==
[2021-06-24] MEDS ORDERED: IPRATROPIUM 0.5 MG/2.5 ML NEBU INHALATION STA (08:57)
[2021-06-24] MEDS ORDERED: methylPREDNISolone SOD SUCCI 125 MG/2 ML VIAL IV STA (08:57)
[2021-06-24] MEDS ORDERED: ALBUTEROL NEBULIZED 2.5 MG/3 ML INHALATION STA (08:57)
--- NOTE | 2021-06-24 09:07 | ED ---
General Adult HPI - General Chief complaint: Upper Respiratory Infection Stated complaint: wheezing Time Seen by Provider: 06/24/21 08:43 Source: patient, RN notes reviewed, old records reviewed Mode of arrival: wheelchair Limitations: no limitations - History of Present Illness Initial comments: 60-year-old male history of COPD who had presented for evaluation of increased cough and dyspnea. Patient was seen by his primary care physician yesterday s tarted on antibiotics and steroids. He states that throughout the night he continued to have difficulty breathing with wheezing. He is a former smoker. He does follow with pulmonology to [facility]. He denies fever. Denies chest pain. - Related Data Home Medications Medication Instructions Recorded Confirmed Fluticasone Nasal [place] [Flonase 1 spray EA NOSTRIL DAILY 02/03/18 12/16/19 Nasal [place]] Pantoprazole [Protonix] 40 mg PO DAILY 02/03/18 12/16/19 Albuterol Sulfate [Proair Hfa] 2 puff INHALATION RT-Q4H PRN 12/16/19 12/16/19 Fluticasone/Umeclidin/Vilan[place] 1 puff INHALATION RT-DAILY 12/16/19 12/16/19 [Trelegy Ellipta 100-62.5-25] Loratadine [Claritin] 10 mg PO DAILY 12/16/19 12/16/19 Previous Rx's Medication Instructions Recorded predniSONE 0 mg PO DAILY #40 tab 12/21/19 Pseudoephedrine HCl [Sudafed] 30 mg PO Q4HR #18 tab 04/01/20 methylPREDNISolone [Medrol Dose 4 mg PO DIRECTED #1 pack 04/01/20 Pack] Cyclobenzaprine [Flexeril] 5 mg PO TID 5 Days #15 tablet 04/12/20 Hydrocodone/Acetaminophen [[place] 1 tab PO Q6HR PRN 3 Days #12 tab 04/12/20 7.5-325] Lidocaine 5% Patch [Lidoderm] 1 patch TOPICAL DAILY #5 patch 04/12/20 Lidocaine 5% Patch [Lidoderm] 1 patch TOPICAL DAILY #5 patch 04/12/20 Naproxen [EC-Naprosyn] 500 mg PO BID PRN #30 tablet. 04/12/20 Allergies Allergy/AdvReac Type Severity Reaction Status Date / Time No Known Allergies Allergy Verified 06/24/21 08:40 Review of Systems ROS Statement: Those systems with pertinent positive or pertinent negative responses have been documented in the HPI. ROS Other: All systems not noted in ROS Statement are negative. Past Medical History Past Medical History: Asthma, COPD, GERD/Reflux History of Any Multi-Drug Resistant Organisms: None Reported Past Surgical History: Orthopedic Surgery, Tonsillectomy Additional Past Surgical History / Comment(s): rt hand Past Anesthesia/Blood Transfusion Reactions: No Reported Reaction Past Psychological History: No Psychological Hx Reported Smoking Status: Never smoker Past Alcohol Use History: None Reported Past Drug Use History: None Reported - Past Family History Sister(s) Additional Family Medical History / Comment(s): chrohns Mother Family Medical History: Cancer Additional Family Medical History / Comment(s): colon ca diverticulitis Father Family Medical History: Myocardial Infarction ([place]) Additional Family Medical History / Comment(s): heart stent General Exam Limitations: no limitations General appearance: alert, in distress Head exam: Present: atraumatic, normocephalic Eye exam: Present: normal appearance, PERRL ENT exam: Present: normal exam Neck exam: Present: normal inspection. Absent: tenderness, meningismus Respiratory exam: Present: respiratory distress, wheezes, decreased breath sounds Cardiovascular Exam: Present: regular rate, normal rhythm GI/Abdominal exam: Present: soft. Absent: distended, tenderness, guarding Extremities exam: Present: normal inspection, normal capillary refill. Absent: pedal edema, calf tenderness Neurological exam: Present: alert, oriented X3, CN II-XII intact. Absent: motor sensory deficit Psychiatric exam: Present: normal affect, normal mood Skin exam: Present: warm, dry, intact. Absent: cyanosis, diaphoretic Course Vital Signs 06/24/21 06/24/21 06/24/21 08:37 08:49 09:14 Temperature 98.4 F Pulse Rate 107 H 108 H 96 Respiratory 20 20 Rate Blood Pressure 146/87 130/90 O2 Sat by Pulse 90 L 97 Oximetry 06/24/21 06/24/21 09:43 10:05 Temperature Pulse Rate 114 H 104 H Respiratory 22 Rate Blood Pressure 109/70 O2 Sat by Pulse 95 Oximetry EKG Findings - EKG Comments: EKG Findings:: EKG: Normal sinus rhythm, rate of 98, AL interval 128, QRS duration 96, QTC 436, no ST segment elevation. Medical Decision Making - Medical Decision Making 60-year-old male who presented with increased cough and dyspnea. History of COPD. His been on treatment as an outpatient without improvement. X-rays performed, showing concern for infiltrate. Blood cultures are obtained, patient is started on antibiotics in the emergency department. He had been on a azithromycin as an outpatient, is given a dose of Rocephin. As well as IV steroids. He has normal white blood cell count, normal lactic acid. He he will be admitted for continued treatment of COPD exacerbation and pneumonia. Case discussed with Dr. Roldan will admit. - Lab Data Result diagrams: 06/24/21 09:03 06/24/21 09:03 Lab Results 06/24/21 06/24/21 06/24/21 Range/Units 09:03 09:03 09:03 WBC 7.2 (3.8-10.6) k/uL RBC 5.83 (4.30-5.90) m/uL Hgb 18.4 H (13.0-17.5) gm/dL Hct 54.5 H (39.0-53.0) % MCV 93.5 (80.0-100.0) fL MCH 31.6 (25.0-35.0) pg MCHC 33.8 (31.0-37.0) g/dL RDW 14.3 (11.5-15.5) % Plt Count 124 L (150-450) k/uL MPV 9.3 PT 10.7 (9.0-12.0) sec INR 1.0 (<1.2) APTT 23.5 (22.0-30.0) sec Sodium 136 L (137-145) mmol/L Potassium 4.8 (3.5-5.1) mmol/L Chloride 100 (98-107) mmol/L Carbon Dioxide 26 (22-30) mmol/L Anion Gap 10 mmol/L BUN 19 (9-20) mg/dL Creatinine 0.87 (0.66-1.25) mg/dL Est GFR (CKD-EPI)AfAm >90 (>60 ml/min/1.73 sqM) Est GFR (CKD-EPI)NonAf >90 (>60 ml/min/1.73 sqM) Glucose 120 H (74-99) mg/dL Plasma Lactic Acid John (0.7-2.0) mmol/L Calcium 9.7 (8.4-10.2) mg/dL Magnesium 1.7 (1.6-2.3) mg/dL Total Bilirubin 1.0 (0.2-1.3) mg/dL AST 41 (17-59) U/L ALT 31 (4-49) U/L Alkaline Phosphatase 68 (38-126) U/L Total Protein 7.0 (6.3-8.2) g/dL Albumin 4.5 (3.5-5.0) g/dL 06/24/21 Range/Units 09:03 WBC (3.8-10.6) k/uL RBC (4.30-5.90) m/uL Hgb (13.0-17.5) gm/dL Hct (39.0-53.0) % MCV (80.0-100.0) fL MCH (25.0-35.0) pg MCHC (31.0-37.0) g/dL RDW (11.5-15.5) % Plt Count (150-450) k/uL MPV PT (9.0-12.0) sec INR (<1.2) APTT (22.0-30.0) sec Sodium (137-145) mmol/L Potassium (3.5-5.1) mmol/L Chloride (98-107) mmol/L Carbon Dioxide (22-30) mmol/L Anion Gap mmol/L BUN (9-20) mg/dL Creatinine (0.66-1.25) mg/dL Est GFR (CKD-EPI)AfAm (>60 ml/min/1.73 sqM) Est GFR (CKD-EPI)NonAf (>60 ml/min/1.73 sqM) Glucose (74-99) mg/dL Plasma Lactic Acid John 1.1 (0.7-2.0) mmol/L Calcium (8.4-10.2) mg/dL Magnesium (1.6-2.3) mg/dL Total Bilirubin (0.2-1.3) mg/dL AST (17-59) U/L ALT (4-49) U/L Alkaline Phosphatase (38-126) U/L Total Protein (6.3-8.2) g/dL Albumin (3.5-5.0) g/dL Disposition Clinical Impression: Acute exacerbation of chronic obstructive pulmonary disease, Hypoxemia, Pneumonia Disposition: ADMITTED IP TO THIS HOSP Condition: Stable Is patient prescribed a controlled substance at d/c from ED?: No Referrals: Grace Gardner MD [Primary Care Provider] - 1-2 days Decision to Admit Reason: Admit from EC Decision Date: 06/24/21 Decision Time: 10:44
[2021-06-24 09:23] LABS: ALT 31 U/L (4-49); AST 41 U/L (17-59); African American GFR (CKD) >90 (>60 ml/min/1.73 sqM); Albumin 4.5 g/dL (3.5-5.0); Alkaline Phosphatase 68 U/L (38-126); Anion Gap 10 mmol/L; Blood Urea Nitrogen 19 mg/dL (9-20); Calcium 9.7 mg/dL (8.4-10.2); Carbon Dioxide 26 mmol/L (22-30); Chloride 100 mmol/L (98-107); Glucose 120 mg/dL (74-99); Magnesium 1.7 mg/dL (1.6-2.3); Non-African American GFR(CKD) >90 (>60 ml/min/1.73 sqM); Potassium 4.8 mmol/L (3.5-5.1); Sodium 136 mmol/L (137-145)
--- NOTE | 2021-06-24 10:00 | XR ---
EXAMINATION TYPE: XR chest 2V DATE OF EXAM: 06/24/2021 COMPARISON: 04/12/2020 INDICATION: Difficulty breathing upper respiratory tract infection TECHNIQUE: Frontal and lateral views of the chest are obtained. FINDINGS: The heart size is normal. The pulmonary vasculature is normal. Mild right lower lobe infiltrate is present. Very subtle nodule may be posterior to the seventh ante rior rib. This was better visualized previously, continued follow-up is recommended. IMPRESSION: 1. Mild right lower lobe infiltrate. Correlate for atelectasis and pneumonia. 2. Small nodule posterior to the anterior seventh rib is not excluded. Continued follow-up is recomme nded.
[2021-06-24 10:12] LABS: HCT 54.5 % (39.0-53.0); HGB 18.4 gm/dL (13.0-17.5); MCH 31.6 pg (25.0-35.0); MCHC 33.8 g/dL (31.0-37.0); MCV 93.5 fL (80.0-100.0); Mean Platelet Volume 9.3; Platelet Count 124 k/uL (150-450); RBC 5.83 m/uL (4.30-5.90); RDW 14.3 % (11.5-15.5); WBC 7.2 k/uL (3.8-10.6)
[2021-06-24] MEDS ORDERED: cefTRIAXone IN SWFI 1,000 MG/10 ML SYRINGE IVP STA (10:14)
[2021-06-24 10:27] LABS: Partial Thromboplastin Time 23.5 sec (22.0-30.0); Prothrombin Time 10.7 sec (9.0-12.0)
[2021-06-24] MEDS ORDERED: IPRATROPIUM-ALBUTEROL 3 ML NEB INHALATION PRN (10:42)
[2021-06-24 10:45] LABS: Lymphocytes # (M) 0.22 k/uL (1.0-4.8); Monocytes # (M) 0.14 k/uL (0-1.0); Neutrophils # (M) 6.84 k/uL (1.3-7.7); Neutrophils % (M) 95 %; Nucleated Red Blood Cells 0 /100 WBC (0-0); Total Cells Counted 100
[2021-06-24] MEDS: IPRATROPIUM-ALBUTEROL 3 ML NEB INHALATION SCH ×3 (11:43→19:07)
[2021-06-24] MEDS: methylPREDNISolone SOD SUCCI 125 MG/2 ML VIAL IV SCH ×3 (12:06→23:50)
[2021-06-24] MEDS: ACETAMINOPHEN TAB 325 MG TAB PO PRN (16:19)
--- NOTE | 2021-06-24 18:22 | P.HPIM ---
History of Present Illness H&P Date: 06/24/21 Chief Complaint: Wheezing/upper respiratory infection 60-year-old male history of COPD who had presented for evaluation of increased cough and dyspnea. Patient was seen by his primary care physician yesterday started on antibiotics and steroids. He states that throughout the night he continued to have difficulty breathing with wheezing. He is a former smoker. He does follow with pulmonology to [facility]. He denies fever. Denies chest pain. Lab work completed in ED reveals a WBC of 7.2, hemoglobin 18.4, hematocrit 54.5 and platelet count of 124, sodium 136, potassium 4.8, BUN/creatinine of 19/0.87 and blood glucose of 120 X-rays performed, showing concern for infiltrate. Blood cultures are obtained, patient is started on antibiotics in the emergency department. He had been on a azithromycin as an outpatient, is given a dose of Rocephin. As well as IV steroids. He has normal white blood cell count, normal lactic acid. He he will be admitted for continued treatment of COPD exacerbation and pneumonia. Review of Systems REVIEW OF SYSTEMS: CONSTITUTIONAL: No fever, no malaise, no fatigue. HEENT: No recent visual problems or hearing problems. Denied any sore throat. CARDIOVASCULAR: No chest pain, orthopnea, PND, no palpitations, no syncope. PULMONARY: No shortness of breath, no cough, no hemoptysis. GASTROINTESTINAL: No diarrhea, no nausea, no vomiting, no abdominal pain. NEUROLOGICAL: No headaches, no weakness, no numbness. HEMATOLOGICAL: Denies any bleeding or petechiae. GENITOURINARY: Denies any burning micturition, frequency, or urgency. MUSCULOSKELETAL/RHEUMATOLOGICAL: Denies any joint pain, swelling, or any muscle pain. ENDOCRINE: Denies any polyuria or polydipsia. The rest of the 14-point review of systems is negative. Past Medical History Past Medical History: Asthma, COPD, GERD/Reflux History of Any Multi-Drug Resistant Organisms: None Reported Past Surgical History: Orthopedic Surgery, Tonsillectomy Additional Past Surgical History / Comment(s): rt hand Past Anesthesia/Blood Transfusion Reactions: No Reported Reaction Past Psychological History: No Psychological Hx Reported Smoking Status: Never smoker Past Alcohol Use History: None Reported Past Drug Use History: None Reported - Past Family History Sister(s) Additional Family Medical History / Comment(s): sascha Mother Family Medical History: Cancer Additional Family Medical History / Comment(s): colon ca diverticulitis Father Family Medical History: Myocardial Infarction ([place]) Additional Family Medical History / Comment(s): heart stent Medications and Allergies Home Medications Medication Instructions Recorded Confirmed Type Fluticasone Nasal [place] [Flonase 2 spr EA NOSTRIL BID 02/03/18 06/24/21 History Nasal [place]] Pantoprazole [Protonix] 40 mg PO DAILY 02/03/18 06/24/21 History Fluticasone/Umeclidin/Vilanter 1 puff INHALATION RT-DAILY 12/16/19 06/24/21 History [Trelegy Ellipta 100-62.5-25] Loratadine [Claritin] 10 mg PO DAILY 12/16/19 06/24/21 History Albuterol Sulfate [Ventolin HFA] 2 puff INHALATION RT-Q4H PRN 06/24/21 06/24/21 History Azithromycin [Zithromax Z-pack (6 See Taper PO DAILY 06/24/21 06/24/21 History tabs)] Montelukast [Singulair] 10 mg PO HS 06/24/21 06/24/21 History diphenhydrAMINE HCL [Benadryl] 25 mg PO QID PRN 06/24/21 06/24/21 History predniSONE [Deltasone] 40 mg PO DAILY 06/24/21 06/24/21 History Allergies Allergy/AdvReac Type Severity Reaction Status Date / Time No Known Allergies Allergy Verified 06/24/21 11:10 Physical Exam Vitals: Vital Signs Temp Pulse Resp BP Pulse Ox 06/24/21 11:54 108 H 06/24/21 11:45 100 06/24/21 10:05 104 H 22 109/70 95 06/24/21 09:43 114 H 06/24/21 09:14 96 06/24/21 08:49 108 H 20 130/90 97 06/24/21 08:37 98.4 F 107 H 20 146/87 90 L Intake and Output 06/23/21 06/24/21 06/24/21 22:59 06:59 14:59 Other: Weight 89.811 kg PHYSICAL EXAMINATION: GENERAL: The patient is alert and oriented x3, not in any acute distress. Well developed, well nourished. HEENT: Pupils are round and equally reacting to light. EOMI. No scleral icterus. No conjunctival pallor. Normocephalic, atraumatic. No pharyngeal erythema. No thyromegaly. CARDIOVASCULAR: S1 and S2 present. No murmurs, rubs, or gallops. PULMONARY: Chest is clear to auscultation, no wheezing or crackles. ABDOMEN: Soft, nontender, nondistended, normoactive bowel sounds. No palpable organomegaly. MUSCULOSKELETAL: No joint swelling or deformity. EXTREMITIES: No cyanosis, clubbing, or pedal edema. NEUROLOGICAL: Gross neurological examination did not reveal any focal deficits. SKIN: No rashes. Results CBC & Chem 7: 06/24/21 09:03 06/24/21 09:03 Labs: Abnormal Lab Results - Last 24 Hours (Table) 06/24/21 06/24/21 Range/Units 09:03 09:03 Hgb 18.4 H (13.0-17.5) gm/dL Hct 54.5 H (39.0-53.0) % Plt Count 124 L (150-450) k/uL Lymphocytes # (Manual) 0.22 L (1.0-4.8) k/uL Sodium 136 L (137-145) mmol/L Glucose 120 H (74-99) mg/dL Assessment and Plan Assessment: 1. Community-acquired pneumonia - Patient did have couple days of treatment with oral azithromycin as an out patient; we will plan to continue azithromycin and add IV Rocephin; monitor blood and sputum cultures; monitor CBC, CMP and pro-calcitonin; we will order Mycoplasma antibodies with Legionella and strep antigens 2. Acute exacerbation COPD; patient has been placed on IV Solu-Medrol in ED; we will continue with bronchodilator nebulizer treatments 3. Gastroesophageal reflux disease; Protonix 40 mg by mouth daily 4. Obesity; counseling done on need for weight reduction 5. Seasonal ALLERGIES; Flonase nasal spray daily; Claritin 10 mg daily DVT prophylaxis; SCDs CODE STATUS; full code
[2021-06-24] MEDS: MONTELUKAST 10 MG TAB PO SCH (20:17)
[2021-06-24] MEDS: FLUTICASONE 50MCG/SPRAY NASAL 16GM EA NOSTRIL SCH (20:17)
[2021-06-24] MEDS: MELATONIN 3 MG TABLET PO PRN (23:50)
[2021-06-25] MEDS: methylPREDNISolone SOD SUCCI 125 MG/2 ML VIAL IV SCH ×4 (04:43→22:32)
[2021-06-25] MEDS: ACETAMINOPHEN TAB 325 MG TAB PO PRN ×3 (04:44→22:30)
[2021-06-25] MEDS: SYMBICORT 80-4.5 MCG INHALER INHALATION SCH ×2 (06:16→06:32)
[2021-06-25] MEDS: IPRATROPIUM-ALBUTEROL 3 ML NEB INHALATION SCH ×4 (06:16→20:38)
[2021-06-25] MEDS: FLUTICASONE 50MCG/SPRAY NASAL 16GM EA NOSTRIL SCH ×2 (08:57→22:31)
[2021-06-25] MEDS: LORATADINE 10 MG TAB PO SCH (08:57)
[2021-06-25] MEDS: PANTOPRAZOLE 40 MG TABLET PO SCH (08:57)
[2021-06-25 09:26] LABS: Basophils # (A) 0.01 X 10*3/uL (0.00-0.10); Basophils % (A) 0.1 %; Eosinophils # (A) 0 X 10*3/uL (0.04-0.35); Eosinophils % (A) 0 %; HCT 54.4 % (39.6-50.0); HGB 17.5 g/dL (13.0-17.0); Lymphocytes # (A) 0.28 X 10*3/uL (0.90-5.00); Lymphocytes % (A) 2.7 %; MCH 29.9 pg (27.0-32.0); MCHC 32.2 g/dL (32.0-37.0); MCV 92.8 fL (80.0-97.0); Monocytes # (A) 0.38 X 10*3/uL (0.20-1.00); Monocytes % (A) 3.7 %; Neutrophils # (A) 9.59 X 10*3/uL (1.80-7.70); Platelet Count 143 X 10*3/uL (140-440); RBC 5.86 X 10*6/uL (4.40-5.60); RDW 13.9 % (11.5-14.5); WBC 10.31 X 10*3/uL (4.50-10.00)
[2021-06-25 10:17] LABS: African American GFR (CKD) 93.7 (60.0-200.0); Anion Gap 16.5 mmol/L (4.00-12.00); Calcium 9.6 mg/dL (8.7-10.3); Carbon Dioxide 19.5 mmol/L (21.6-31.8); Non-African American GFR(CKD) 80.9 (60.0-200.0); Potassium 4.7 mmol/L (3.5-5.5)
--- NOTE | 2021-06-25 11:53 | P.CNPUL ---
History of Present Illness Consult date: 06/25/21 Requesting physician: Rudy Roldan Reason for consult: dyspnea, cough, COPD, hypoxemia, abnormal CXR/CT Chief complaint: Shortness of breath. History of present illness: Pulmonary consultation dated 06/25/2021. 60-year-old male with history of severe COPD. He apparently sees a upholsterer limousine and hearse over at [facility]. The patient comes into the emergency room on June 24 complaining of increasing shortness of breath, and possible respiratory infection. He complains of cough, chest tightness, chest congestion, and some phlegm production. No fever or chills. The patient used to smoke heavily. Does not smoke currently. Apparently based on a previous pulmonary function test done in 2018, his FEV1 percent is 35. He currently takes a combination long-acting muscarinic antagonist, long-acting beta agonist, and inhaled corticosteroid preparation, called Trelegy, and, he has an albuterol inhaler as rescue. He does not require oxygen at home. Apparently he recently saw his doctor when his COPD he was starting to act up, who apparently gave him a shot of Depo-Medrol, and also shot of Rocephin. I the next day, he was worse, which is why he came in to be evaluated. White count 10.31, he will be 17.5, hematocrit 54.4, and platelet count normal. Sodium 135, potassium 4.7, chl orides 99, CO2 20, anion gap 17, BUN 32, and creatinine 1. Pro-calcitonin level is 0.22. Coronavirus testing was negative. Chest x-ray shows a small nodule in the right lower lobe, which apparently has been followed by his upholsterer limousine and hearse, and possibly some right midlung infiltrate versus atelectasis. Review of Systems REVIEW OF SYSTEMS: CONSTITUTIONAL: [Negative.] NEUROLOGIC: [ Negative.] HEENT: [ Negative.] CARDIAC: [Negative.] PULMONARY: Shortness of breath, cough, chest tightness, chest congestion. GI: [Negative.] : [Negative.] RHEUMATOLOGIC: [ Negative.] IMMUNOLOGIC: [ Negative.] ENDOCRINE: [Negative. ] DERMATOLOGIC: [Negative.] Past Medical History Past Medical History: Asthma, COPD, GERD/Reflux History of Any Multi-Drug Resistant Organisms: None Reported Past Surgical History: Orthopedic Surgery, Tonsillectomy Additional Past Surgical History / Comment(s): rt hand Past Anesthesia/Blood Transfusion Reactions: No Reported Reaction Past Psychological History: No Psychological Hx Reported Smoking Status: Never smoker Past Alcohol Use History: None Reported Past Drug Use History: None Reported - Past Family History Sister(s) Additional Family Medical History / Comment(s): chrohns Mother Family Medical History: Cancer Additional Family Medical History / Comment(s): colon ca diverticulitis Father Family Medical History: Myocardial Infarction ([place]) Additional Family Medical History / Comment(s): heart stent Medications and Allergies Home Medications Medication Instructions Recorded Confirmed Type Fluticasone Nasal [place] [Flonase 2 spr EA NOSTRIL BID 02/03/18 06/24/21 History Nasal [place]] Pantoprazole [Protonix] 40 mg PO DAILY 02/03/18 06/24/21 History Fluticasone/Umeclidin/Vilanter 1 puff INHALATION RT-DAILY 12/16/19 06/24/21 History [Trelegy Ellipta 100-62.5-25] Loratadine [Claritin] 10 mg PO DAILY 12/16/19 06/24/21 History Albuterol Sulfate [Ventolin HFA] 2 puff INHALATION RT-Q4H PRN 06/24/21 06/24/21 History Azithromycin [Zithromax Z-pack (6 See Taper PO DAILY 06/24/21 06/24/21 History tabs)] Montelukast [Singulair] 10 mg PO HS 06/24/21 06/24/21 History diphenhydrAMINE HCL [Benadryl] 25 mg PO QID PRN 06/24/21 06/24/21 History predniSONE [Deltasone] 40 mg PO DAILY 06/24/21 06/24/21 History Allergies Allergy/AdvReac Type Severity Reaction Status Date / Time No Known Allergies Allergy Verified 06/24/21 11:10 Physical Exam Osteopathic Statement: *. No significant issues noted on an osteopathic structural exam other than those noted in the History and Physical/Consult. Vitals: Vital Signs Temp Pulse Pulse Resp BP BP Pulse Ox 06/25/21 08:20 97.6 F 97 22 111/75 91 L 06/25/21 07:38 106 H 19 06/25/21 06:30 100 06/25/21 06:17 100 06/25/21 00:38 98.2 F 106 H 19 120/72 93 L 06/24/21 19:16 107 H 06/24/21 19:09 97.9 F 98 20 98 06/24/21 19:08 105 H 06/24/21 19:00 98 20 06/24/21 15:50 109 H 06/24/21 15:38 94 L 06/24/21 15:36 107 H 06/24/21 13:49 96 20 107/69 96 06/24/21 12:09 104 H 20 110/83 95 06/24/21 11:54 108 H 06/24/21 11:45 100 Intake and Output 06/24/21 06/25/21 06/25/21 22:59 06:59 14:59 Other: # Voids 2 2 2 No acute distress, oriented 3. No conversational dyspnea, or use of accessory muscles. Mucous membranes are moist. No oral lesions. Neck supple. Full range of motion. No adenopathy thyromegaly or neck vein distention. Cardiovascular examination reveals regular rhythm rate. S1-S2 normal. No S3 or S4. No discernible murmur noted. Heart sounds are distant. Heart rate 97 bpm. Lungs reveal bilateral expiratory wheezes and rhonchi. Breath sounds equal bilaterally but diminished throughout. No crackles. There is prolongation on forced maneuver. Adventitious lung sounds are more prominent on forced maneuver. Abdomen soft bowel sounds are heard. No masses or tenderness. Extremities are intact. No cyanosis clubbing or edema. Skin is without rash or lesion. Neurologic examination is brief but nonfocal. Results - Laboratory Findings CBC and BMP: 06/25/21 02:55 06/25/21 02:55 PT/INR, D-dimer PT 10.7 sec (9.0-12.0) 06/24/21 09:03 INR 1.0 (<1.2) 06/24/21 09:03 Abnormal lab findings: Abnormal Labs 06/24/21 06/24/21 06/25/21 09:03 09:03 02:55 WBC RBC Hgb 18.4 H Hct 54.5 H Plt Count 124 L Immature Gran # Neutrophils # Lymphocytes # Lymphocytes # (Manual) 0.22 L Eosinophils # Sodium 136 L Carbon Dioxide Anion Gap BUN BUN/Creatinine Ratio Glucose 120 H Procalcitonin 0.22 H 06/25/21 06/25/21 02:55 02:55 WBC 10.31 H RBC 5.86 H Hgb 17.5 H Hct 54.4 H Plt Count Immature Gran # 0.05 H Neutrophils # 9.59 H Lymphocytes # 0.28 L Lymphocytes # (Manual) Eosinophils # 0 L Sodium Carbon Dioxide 19.5 L Anion Gap 16.50 H BUN 32.0 H BUN/Creatinine Ratio 32.00 H Glucose 142 H Procalcitonin - Diagnostic Findings Chest x-ray: image reviewed Assessment and Plan Assessment: Acute exacerbation of severe COPD. Possible purulent tracheobronchitis versus bronchopneumonia, right lung. Prior history of heavy tobacco use. History of gastroesophageal reflux disease. Possible pulmonary nodule, right lower lobe. Plan: Plan dated 06/25/2021. Currently, we have the patient on Zithromax orally. He is also on Pulmicort 1 mg, mixed with formoterol, 20 g, twice a day. Also, the patient is on alb uterol sulfate and ipratropium bromide updrafts, 4 times a day and when necessary, as well as Solu-Medrol, 60 mg every 6 hours. Additional recommendations and suggestions are forthcoming. Prognosis is guarded. We will continue to follow. Eventually, he should visit his outside upholsterer limousine and hearse once discharged. Time with Patient: Greater than 30
[2021-06-25] MEDS ORDERED: methylPREDNISolone SOD SUCCI 125 MG/2 ML VIAL IV SCH (12:00)
[2021-06-25] MEDS: INSULIN ASPART (NovoLOG) 100 UNIT/ML VIAL SQ SCH ×3 (12:39→20:59)
[2021-06-25] MEDS: AZITHROMYCIN 500 MG TAB PO SCH (12:40)
[2021-06-25 17:01] LABS: Glucose,Whole Blood 134 mg/dL (75-99)
[2021-06-25 20:33] LABS: Glucose,Whole Blood 130 mg/dL (75-99)
[2021-06-25] MEDS: FORMOTEROL FUMARATE 20 MCG/2 ML NEBU INHALATION SCH (20:37)
[2021-06-25] MEDS: BUDESONIDE 1 MG/2 ML NEBU INHALATION SCH (20:38)
[2021-06-25] MEDS: MONTELUKAST 10 MG TAB PO SCH (22:31)
[2021-06-25] MEDS: MELATONIN 3 MG TABLET PO PRN (22:31)
[2021-06-26] MEDS ORDERED: guaiFENesin SYRUP 100MG/5ML 200 MG/10 ML CUP PO PRN (00:33)
[2021-06-26] MEDS ORDERED: BENZOCAINE/MENTHOL LOZENG 1 EACH LOZENGE MUCOUS MEM PRN (00:33)
--- NOTE | 2021-06-26 00:40 | P.PN ---
Subjective Progress Note Date: 06/25/21 Chief Complaint: Wheezing/upper respiratory infection 60-year-old male history of COPD who had presented for evaluation of increased cough and dyspnea. Patient was seen by his primary care physician yesterday started on antibiotics and steroids. He states that throughout the night he continued to have difficulty breathing with wheezing. He is a former smoker. He does follow with pulmonology to [facility]. He denies fever. Denies chest pain. Lab work completed in ED reveals a WBC of 7.2, hemoglobin 18.4, hematocrit 54.5 and platelet count of 124, sodium 136, potassium 4.8, BUN/creatinine of 19/0.87 and blood glucose of 120 X-rays performed, showing concern for infiltrate. Blood cultures are obtained, patient is started on antibiotics in the emergency department. He had been on a azithromycin as an outpatient, is given a dose of Rocephin. As well as IV steroids. He has normal white blood cell count, normal lactic acid. He he will be admitted for continued treatment of COPD exacerbation and pneumonia. 06/25/2021 Patient is seen in follow up continues to have a cough with minimal phlegm production and continues with dyspnea on exertion. Patient currently up and walking from the bathroom and having increased dyspnea on room air and pursed lip breathing. Patient was continued on 3L via NC last night, but currently on room air. Patient states that he does not wear 02 at home. Patient follows with pulmonary Dr. Enriquez out of [place]. Patient continued on IV steroids along with breathing inhalational treatments and will continue. Pulmonary consulted. Review of systems: Constitutional: No reports of fatigue, fever, or chills Cardiovascular: No reports of chest pain or palpitations Respiratory: reports continued shortness of breath and cough with sore throat from the cough GI: No reports of nausea, vomiting, or diarrhea : No reports of dysuria or retention Neurovascular: No reports of weakness or numbness All medications have been reviewed Physical exam: GENERAL: The patient is alert and oriented x3, not in any acute distress. Well developed, well nourished. HEENT: Pupils are round and equally reacting to light. EOMI. No scleral icterus. No conjunctival pallor. Normocephalic, atraumatic. No pharyngeal erythema. No t hyromegaly. CARDIOVASCULAR: S1 and S2 present. No murmurs, rubs, or gallops. PULMONARY: diminished breath sounds with some scattered rhonchi noted and mild expiratory wheezing noted as well ABDOMEN: Soft, obese, nontender, nondistended, normoactive bowel sounds. No palpable organomegaly. MUSCULOSKELETAL: No joint swelling or deformity. EXTREMITIES: No cyanosis, clubbing, or pedal edema. NEUROLOGICAL: Gross neurological examination did not reveal any focal deficits. SKIN: No rashes. Assessment and plan: -Community-acquired pneumonia, failed outpatient and will continue zithromax for possible acute purulent tracheobronchitis -Acute exacerbation COPD; continue IV Solu-Medrol and nebulizer treatments, pulmonary consulted -Gastroesophageal reflux disease; Protonix 40 mg by mouth daily -Obesity with a BMI of 30.1; counseling done on need for weight reduction -Seasonal ALLERGIES; Flonase nasal spray daily; Claritin 10 mg daily -remote history of nicotine use -DVT prophylaxis; SCDs -full code Plan: Continue current breathing inhalational treatments with IV steroids and zithromax. Patient is having continued cough with sore throat and will add ro bitussin and cepacol as needed. Use sliding scale as needed for steroid induced hyperglycemia. Will monitor closely and encourage increase activity as tolerated. Wean FI02 as tolerated occasionally using 2-3 L via NC. Pulmonary following. Possible discharge in 24-48 hours. Objective - Vital Signs Vital signs: Vital Signs Temp 97.6 F 06/25/21 08:20 Pulse 97 06/25/21 08:20 Resp 22 06/25/21 08:20 BP 111/75 06/25/21 08:20 Pulse Ox 91 L 06/25/21 08:20 Intake & Output 06/24/21 06/25/21 06/25/21 18:59 06:59 18:59 Weight 89.811 kg Other: # Voids 2 2 2 - Labs CBC & Chem 7: 06/25/21 02:55 06/25/21 02:55 Labs: Abnormal Lab Results - Last 24 Hours (Table) 06/24/21 Range/Units 09:03 Hgb 18.4 H (13.0-17.5) gm/dL Hct 54.5 H (39.0-53.0) % Plt Count 124 L (150-450) k/uL Lymphocytes # (Manual) 0.22 L (1.0-4.8) k/uL Microbiology - Last 24 Hours (Table) 06/24/21 15:05 Gram Stain - Preliminary Sputum Sputum Culture - Preliminary
[2021-06-26] MEDS ORDERED: guaiFENesin-Coden 100-10MG/5ML 10 ML CUP PO PRN (01:43)
[2021-06-26] MEDS: guaiFENesin-Coden 100-10MG/5ML 10 ML CUP PO PRN ×3 (02:05→21:51)
[2021-06-26] MEDS: methylPREDNISolone SOD SUCCI 125 MG/2 ML VIAL IV SCH ×2 (06:12→15:03)
[2021-06-26 07:05] LABS: Glucose,Whole Blood 148 mg/dL (75-99)
[2021-06-26] MEDS: BUDESONIDE 1 MG/2 ML NEBU INHALATION SCH ×2 (08:04→20:50)
[2021-06-26] MEDS: IPRATROPIUM-ALBUTEROL 3 ML NEB INHALATION SCH ×4 (08:04→20:52)
[2021-06-26] MEDS: FORMOTEROL FUMARATE 20 MCG/2 ML NEBU INHALATION SCH ×2 (08:04→20:50)
[2021-06-26] MEDS: PANTOPRAZOLE 40 MG TABLET PO SCH (09:11)
[2021-06-26] MEDS: LORATADINE 10 MG TAB PO SCH (09:11)
[2021-06-26] MEDS: INSULIN ASPART (NovoLOG) 100 UNIT/ML VIAL SQ SCH ×4 (09:11→22:07)
[2021-06-26] MEDS: FLUTICASONE 50MCG/SPRAY NASAL 16GM EA NOSTRIL SCH ×2 (09:11→21:51)
[2021-06-26] MEDS: AZITHROMYCIN 500 MG TAB PO SCH (09:11)
--- NOTE | 2021-06-26 10:28 | P.PN ---
Subjective Progress Note Date: 06/26/21 Principal diagnosis: COPD exacerbation 60-year-old male with history of severe COPD. He apparently sees a alum plant supervisor over at [facility]. The patient comes into the emergency room on June 24 complaining of increasing shortness of breath, and possible respiratory infection. He complains of cough, chest tightness, chest congestion, and some phlegm production. No fever or chills. The patient used to smoke heavily. Does not smoke currently. Apparently based on a previous pulmonary function test done in 2018, his FEV1 percent is 35. He currently takes a combination long-acting muscarinic antagonist, long-acting beta agonist, and inhaled corticosteroid preparation, called Trelegy, and, he has an albuterol inhaler as rescue. He does not require oxygen at home. Apparently he recently saw his doctor when his COPD he was starting to act up, who apparently gave him a shot of Depo-Medrol, and also shot of Rocephin. I the next day, he was worse, which is why he came in to be evaluated. White count 10.31, he will be 17.5, hematocrit 54.4, and platelet count normal. Sodium 135, potassium 4.7, chlorides 99, CO2 20, anion gap 17, BUN 32, and creatinine 1. Pro-calcitonin level is 0.22. Coronavirus testing was negative. Chest x-ray shows a small nodule in the right lower lobe, which apparently has been followed by his alum plant supervisor, and possibly some right midlung infiltrate versus atelectasis. The patient is seen today 06/26/2021 in follow-up on the regular medical floor. He is currently sitting up in bed. Awake and alert in no acute distress. Still dyspneic with conversation and minimal exertion. Continues with a loose productive cough. Maintaining O2 saturations in the low 90s on 3 L/m per nasal cannula. He's been afebrile. Hemodynamically stable. Blood culture reveals no growth to date. Sputum culture pending. Blood glucose 148. He is continued on DuoNeb inhalations, Pulmicort and Perforomist inhalations, IV Solu-Medrol. Antibiotics in the form of Zithromax and Robitussin as needed. Objective - Vital Signs Vital signs: Vital Signs Temp 97.6 F 06/26/21 08:06 Pulse 98 06/26/21 08:19 Resp 20 06/26/21 08:06 BP 112/70 06/26/21 08:06 Pulse Ox 91 L 06/26/21 08:06 Intake & Output 06/25/21 06/26/21 06/26/21 18:59 06:59 18:59 Intake Total 240 Balance 240 Intake: Oral 240 Other: # Voids 4 2 - Exam 60-year-old male patient. No acute distress, oriented 3. Mild conversational dyspnea. No use of accessory muscles. Mucous membranes are moist. No oral lesions. Neck supple. Full range of motion. No adenopathy thyromegaly or neck vein dis tention. Cardiovascular examination reveals regular rhythm rate. S1-S2 normal. No S3 or S4. No discernible murmur noted. Heart sounds are distant. Heart rate 97 bpm. Lungs reveal bilateral expiratory wheezes and rhonchi. Breath sounds equal bilaterally but diminished throughout. No crackles. There is prolongation on forced maneuver. Adventitious lung sounds are more prominent on forced maneuver. Abdomen soft bowel sounds are heard. No masses or tenderness. Extremities are intact. No cyanosis clubbing or edema. Skin is without rash or lesion. Neurologic examination is brief but nonfocal. - Labs CBC & Chem 7: 06/25/21 02:55 06/25/21 02:55 Labs: Abnormal Lab Results - Last 24 Hours (Table) 06/25/21 06/25/21 06/25/21 Range/Units 02:55 17:00 20:32 POC Glucose (mg/dL) 134 H 130 H (75-99) mg/dL Procalcitonin 0.22 H (0.02-0.09) ng/mL 06/26/21 Range/Units 07:04 POC Glucose (mg/dL) 148 H (75-99) mg/dL Procalcitonin (0.02-0.09) ng/mL Microbiology - Last 24 Hours (Table) 06/24/21 10:33 Blood Culture - Preliminary Blood No Growth after 24 hours 06/24/21 10:33 Blood Culture - Preliminary Blood No Growth after 24 hours Assessment and Plan Assessment: 1 Acute exacerbation of severe COPD. 2 Possible purulent tracheobronchitis versus bronchopneumonia, right lung. 3 Prior history of heavy tobacco use. 4 History of gastroesophageal reflux disease. 5 Possible pulmonary nodule, right lower lobe. Plan: The patient was seen and evaluated by Dr. Ashton Continue bronchodilators, IV Solu-Medrol, antibiotics Titrate down the FiO2 as tolerated Increase his activity as tolerated We will continue to follow I, the cosigning physician, performed a history & physical examination of the patient. Lungs sounds with few scattered rhonchi, end expiratory wheeze, diminished Maintaining good O2 saturations in the 90s on 3 L/m per nasal cannula. I discussed the assessment and plan of care with my nurse practitioner, Nila Graham. I attest to the above note as dictated by her.
[2021-06-26 10:55] LABS: Glucose,Whole Blood 121 mg/dL (75-99)
[2021-06-26] MEDS: methylPREDNISolone SOD SUCCI 40 MG/ML 1 ML VIAL IV SCH ×3 (13:34→21:51)
[2021-06-26 16:24] LABS: Glucose,Whole Blood 137 mg/dL (75-99)
--- NOTE | 2021-06-26 16:30 | P.PN ---
Subjective Progress Note Date: 06/26/21 Chief Complaint: Wheezing/upper respiratory infection 60-year-old male history of COPD who had presented for evaluation of increased cough and dyspnea. Patient was seen by his primary care physician yesterday started on antibiotics and steroids. He states that throughout the night he continued to have difficulty breathing with wheezing. He is a former smoker. He does follow with pulmonology to [facility]. He denies fever. Denies chest pain. Lab work completed in ED reveals a WBC of 7.2, hemoglobin 18.4, hematocrit 54.5 and platelet count of 124, sodium 136, potassium 4.8, BUN/creatinine of 19/0.87 and blood glucose of 120 X-rays performed, showing concern for infiltrate. Blood cultures are obtained, patient is started on antibiotics in the emergency department. He had been on a azithromycin as an outpatient, is given a dose of Rocephin. As well as IV steroids. He has normal white blood cell count, normal lactic acid. He he will be admitted for continued treatment of COPD exacerbation and pneumonia. 06/25/2021 Patient is seen in follow up continues to have a cough with minimal phlegm production and continues with dyspnea on exertion. Patient currently up and walking from the bathroom and having increased dyspnea on room air and pursed lip breathing. Patient was continued on 3L via NC last night, but currently on room air. Patient states that he does not wear 02 at home. Patient follows with pulmonary Dr. Enriquez out of [place]. Patient continued on IV steroids along with breathing inhalational treatments and will continue. Pulmonary consulted. 06/26/2021 A and is seen this morning continues to be dyspneic with minimal exertion and continues to walk around the room without oxygen and oxygen saturations have been 90% to needs to have extreme cough and bringing up phlegm and states it is worsened when lying down. Robitussin was added along with Cepacol for continued sore throat due to coughing. Patient instructed to continue with oxygen while in acute exacerbation and will work on weaning as tolerated with the possibility of requiring outpatient oxygen that will be further tested in the near future. Pulmonary is following. Patient is maintained on IV steroids and will decrease the dosage as wheezing is improved and will continue with sliding scale as needed. To continue with Robitussin and patient requested with codeine although would withhold that as that can be suppressant and we want an expectorant will a dd Mucinex. Encourage increased activity and continued O2 monitoring. Review of systems: Constitutional: No reports of fatigue, fever, or chills Cardiovascular: No reports of chest pain or palpitations Respiratory: reports continued shortness of breath and cough with sore throat from the cough GI: No reports of nausea, vomiting, or diarrhea : No reports of dysuria or retention Neurovascular: No reports of weakness or numbness All medications have been reviewed Physical exam: GENERAL: The patient is alert and oriented x3, not in any acute distress. Well developed, well nourished. HEENT: Pupils are round and equally reacting to light. EOMI. No scleral icterus. No conjunctival pallor. Normocephalic, atraumatic. No pharyngeal erythema. No thyromegaly. CARDIOVASCULAR: S1 and S2 present. No murmurs, rubs, or gallops. PULMONARY: diminished breath sounds with some scattered rhonchi noted and mild expiratory wheezing at the right lung bases noted as well ABDOMEN: Soft, obese, nontender, nondistended, normoactive bowel sounds. No palpable organomegaly. MUSCULOSKELETAL: No joint swelling or deformity. EXTREMITIES: No cyanosis, clubbing, or pedal edema. NEUROLOGICAL: Gross neurological examination did not reveal any focal deficits. SKIN: No rashes. Assessment and plan: -Community-acquired pneumonia, failed outpatient and will continue zithromax for possible acute purulent tracheobronchitis -Acute exacerbation COPD; continue IV Solu-Medrol and nebulizer treatments, pulm onary following -Gastroesophageal reflux disease; Protonix 40 mg by mouth daily -Obesity with a BMI of 30.1; counseling done on need for weight reduction -Seasonal ALLERGIES; Flonase nasal spray daily; Claritin 10 mg daily -remote history of nicotine use -DVT prophylaxis; SCDs -full code Plan: Continue current breathing inhalational treatments with IV steroids and zithromax. Patient is having continued cough with sore throat and will add robitussin and cepacol as needed. Will add Mucinex as well. Use sliding scale as needed for steroid induced hyperglycemia. Will monitor closely and encourage increase activity as tolerated. Patient instructed to continue with oxygen supplementation during exacerbation and Wean FI02 as tolerated. Pulmonary following. Possible discharge in 24-48 hours. Objective - Vital Signs Vital signs: Vital Signs Temp 97.6 F 06/26/21 08:06 Pulse 98 06/26/21 08:19 Resp 20 06/26/21 08:06 BP 112/70 06/26/21 08:06 Pulse Ox 91 L 06/26/21 08:06 Intake & Output 06/25/21 06/26/21 06/26/21 18:59 06:59 18:59 Intake Total 240 Balance 240 Intake: Oral 240 Other: # Voids 4 2 - Labs CBC & Chem 7: 06/25/21 02:55 06/25/21 02:55 Labs: Abnormal Lab Results - Last 24 Hours (Table) 06/25/21 06/25/21 06/25/21 Range/Units 02:55 02:55 17:00 Carbon Dioxide 19.5 L (21.6-31.8) mmol/L Anion Gap 16.50 H (4.00-12.00) mmol/L BUN 32.0 H (9.0-27.0) mg/dL BUN/Creatinine Ratio 32.00 H (12.00-20.00) Ratio Glucose 142 H (70-110) mg/dL POC Glucose (mg/dL) 134 H (75-99) mg/dL Procalcitonin 0.22 H (0.02-0.09) ng/mL 06/25/21 06/26/21 Range/Units 20:32 07:04 Carbon Dioxide (21.6-31.8) mmol/L Anion Gap (4.00-12.00) mmol/L BUN (9.0-27.0) mg/dL BUN/Creatinine Ratio (12.00-20.00) Ratio Glucose (70-110) mg/dL POC Glucose (mg/dL) 130 H 148 H (75-99) mg/dL Procalcitonin (0.02-0.09) ng/mL Microbiology - Last 24 Hours (Table) 06/24/21 10:33 Blood Culture - Preliminary Blood No Growth after 24 hours 06/24/21 10:33 Blood Culture - Preliminary Blood No Growth after 24 hours
[2021-06-26] MEDS: ACETAMINOPHEN TAB 325 MG TAB PO PRN (17:37)
[2021-06-26 20:31] LABS: Glucose,Whole Blood 145 mg/dL (75-99)
[2021-06-26] MEDS: MELATONIN 3 MG TABLET PO PRN (21:50)
[2021-06-26] MEDS: guaiFENesin 600 MG TABLET.ER PO SCH (21:51)
[2021-06-26] MEDS: MONTELUKAST 10 MG TAB PO SCH (21:51)
[2021-06-27] MEDS: ACETAMINOPHEN TAB 325 MG TAB PO PRN ×2 (00:40→19:49)
[2021-06-27] MEDS: guaiFENesin-Coden 100-10MG/5ML 10 ML CUP PO PRN (05:53)
[2021-06-27 06:40] LABS: Glucose,Whole Blood 138 mg/dL (75-99)
[2021-06-27] MEDS: FORMOTEROL FUMARATE 20 MCG/2 ML NEBU INHALATION SCH (07:41)
[2021-06-27] MEDS: BUDESONIDE 1 MG/2 ML NEBU INHALATION SCH (07:41)
[2021-06-27] MEDS: IPRATROPIUM-ALBUTEROL 3 ML NEB INHALATION SCH (07:41)
[2021-06-27] MEDS: methylPREDNISolone SOD SUCCI 40 MG/ML 1 ML VIAL IV SCH (07:47)
[2021-06-27] MEDS: INSULIN ASPART (NovoLOG) 100 UNIT/ML VIAL SQ SCH ×4 (07:47→19:46)
[2021-06-27] MEDS: PANTOPRAZOLE 40 MG TABLET PO SCH (07:47)
[2021-06-27] MEDS: LORATADINE 10 MG TAB PO SCH (07:48)
[2021-06-27] MEDS: AZITHROMYCIN 500 MG TAB PO SCH (07:48)
[2021-06-27] MEDS: guaiFENesin 600 MG TABLET.ER PO SCH ×2 (07:48→19:46)
[2021-06-27] MEDS: FLUTICASONE 50MCG/SPRAY NASAL 16GM EA NOSTRIL SCH ×2 (07:49→19:46)
[2021-06-27 09:23] LABS: African American GFR (CKD) >90 (>60 ml/min/1.73 sqM); Anion Gap 9 mmol/L; Blood Urea Nitrogen 34 mg/dL (9-20); Calcium 8.9 mg/dL (8.4-10.2); Carbon Dioxide 29 mmol/L (22-30); Chloride 98 mmol/L (98-107); Glucose 149 mg/dL (74-99); Non-African American GFR(CKD) >90 (>60 ml/min/1.73 sqM); Potassium 4.4 mmol/L (3.5-5.1); Sodium 136 mmol/L (137-145)
[2021-06-27 09:36] LABS: Basophils % (A) 0 %; Eosinophils % (A) 0 %; HCT 51.7 % (39.0-53.0); HGB 17.4 gm/dL (13.0-17.5); Lymphocytes # (A) 0.3 k/uL (1.0-4.8); Lymphocytes % (A) 4 %; MCH 31.3 pg (25.0-35.0); MCHC 33.7 g/dL (31.0-37.0); MCV 92.9 fL (80.0-100.0); Monocytes # (A) 0.5 k/uL (0-1.0); Monocytes % (A) 6 %; Neutrophils # (A) 7.3 k/uL (1.3-7.7); Neutrophils % (A) 89 %; Platelet Count 163 k/uL (150-450); RBC 5.57 m/uL (4.30-5.90); RDW 14.1 % (11.5-15.5); WBC 8.2 k/uL (3.8-10.6)
[2021-06-27] MEDS ORDERED: ALBUTEROL NEBULIZED 2.5 MG/3 ML INHALATION PRN (10:23)
[2021-06-27 11:43] LABS: Glucose,Whole Blood 106 mg/dL (75-99)
[2021-06-27] MEDS: ALBUTEROL NEBULIZED 2.5 MG/3 ML INHALATION SCH ×3 (11:48→20:15)
[2021-06-27] MEDS: methylPREDNISolone SOD SUCCI 125 MG/2 ML VIAL IV SCH ×3 (11:50→23:33)
[2021-06-27] MEDS ORDERED: ALBUTEROL NEBULIZED 2.5 MG/3 ML INHALATION SCH (12:00)
--- NOTE | 2021-06-27 14:13 | P.PN ---
Subjective Progress Note Date: 06/27/21 Principal diagnosis: COPD exacerbation 60-year-old male with history of severe COPD. He apparently sees a assistant principal over at [facility]. The patient comes into the emergency room on June 24 complaining of increasing shortness of breath, and possible respiratory infection. He complains of cough, chest tightness, chest congestion, and some phlegm production. No fever or chills. The patient used to smoke heavily. Does not smoke currently. Apparently based on a previous pulmonary function test done in 2018, his FEV1 percent is 35. He currently takes a combination long-acting muscarinic antagonist, long-acting beta agonist, and inhaled corticosteroid preparation, called Trelegy, and, he has an albuterol inhaler as rescue. He does not require oxygen at home. Apparently he recently saw his doctor when his COPD he was starting to act up, who apparently gave him a shot of Depo-Medrol, and also shot of Rocephin. I the next day, he was worse, which is why he came in to be evaluated. White count 10.31, he will be 17.5, hematocrit 54.4, and platelet count normal. Sodium 135, potassium 4.7, chlorides 99, CO2 20, anion gap 17, BUN 32, and creatinine 1. Pro-calcitonin level is 0.22. Coronavirus testing was negative. Chest x-ray shows a small nodule in the right lower lobe, which apparently has been followed by his assistant principal, and possibly some right midlung infiltrate versus atelectasis. The patient is seen today 06/26/2021 in follow-up on the regular medical floor. He is currently sitting up in bed. Awake and alert in no acute distress. Still dyspneic with conversation and minimal exertion. Continues with a loose productive cough. Maintaining O2 saturations in the low 90s on 3 L/m per nasal cannula. He's been afebrile. Hemodynamically stable. Blood culture reveals no growth to date. Sputum culture pending. Blood glucose 148. He is continued on DuoNeb inhalations, Pulmicort and Perforomist inhalations, IV Solu-Medrol. Antibiotics in the form of Zithromax and Robitussin as needed. The patient is seen today 06/27/2021 in follow-up on the regular medical floor. He is currently awake and alert in no acute distress. Continues with a loose nonproductive cough. He is improved today but not quite back to his baseline. He is using his Trelegy from home now. Blood cultures reveal no growth. Sputum culture reveals no growth. White count 8.2. Hemoglobin 7.4. Sodium 136. Potassium 4.4. Creatinine 0.89. Glucose 149. He remains on IV Solu-Medrol, Mucinex, Singulair, Claritin, empiric antibiotics in the form of azithromycin. Objective - Vital Signs Vital signs: Vital Signs Temp 97.6 F 06/27/21 07:40 Pulse 72 06/27/21 12:01 Resp 20 06/27/21 09:40 BP 114/73 06/27/21 07:40 Pulse Ox 97 06/27/21 07:41 Intake & Output 06/26/21 06/27/21 06/27/21 18:59 06:59 18:59 Intake Total 350 720 250 Balance 350 720 250 Intake: Oral 350 720 250 Other: # Voids 4 0 # Bowel Movements 0 - Exam 60-year-old male patient. No acute distress, oriented 3. Mild conversational dyspnea. On 3 L nasal cannula. No use of accessory muscles. Mucous membranes are moist. No oral lesions. Neck supple. Full range of motion. No adenopathy thyromegaly or neck vein distention. Cardiovascular examination reveals regular rhythm rate. S1-S2 normal. No S3 or S4. No discernible murmur noted. Heart sounds are distant. Heart rate 97 bpm. Lungs reveal bilateral expiratory wheezes and rhonchi. Breath sounds equal bilaterally but diminished throughout. There is prolongation on forced maneuver. Adventitious lung sounds are more prominent on forced maneuver. Abdomen soft bowel sounds are heard. No masses or tenderness. Extremities are intact. No cyanosis clubbing or edema. Skin is without rash or lesion. Neurologic examination is brief but nonfocal. - Labs CBC & Chem 7: 06/27/21 08:31 06/27/21 08:31 Labs: Abnormal Lab Results - Last 24 Hours (Table) 06/26/21 06/26/21 06/27/21 Range/Units 16:23 20:29 06:37 Lymphocytes # (1.0-4.8) k/uL Sodium (137-145) mmol/L BUN (9-20) mg/dL Glucose (74-99) mg/dL POC Glucose (mg/dL) 137 H 145 H 138 H (75-99) mg/dL 06/27/21 06/27/21 06/27/21 Range/Units 08:31 08:31 11:39 Lymphocytes # 0.3 L (1.0-4.8) k/uL Sodium 136 L (137-145) mmol/L BUN 34 H (9-20) mg/dL Glucose 149 H (74-99) mg/dL POC Glucose (mg/dL) 106 H (75-99) mg/dL Microbiology - Last 24 Hours (Table) 06/24/21 10:33 Blood Culture - Preliminary Blood No Growth after 72 hours 06/24/21 10:33 Blood Culture - Preliminary Blood No Growth after 72 hours 06/24/21 15:05 Gram Stain - Final Sputum Sputum Culture - Final Assessment and Plan Assessment: 1 Acute hypoxemic respiratory failure secondary to an acute exacerbation of severe COPD. 2 Possible purulent tracheobronchitis versus bronchopneumonia, right lung. Sputum culture reveals no growth. 3 Prior history of heavy tobacco use. 4 History of gastroesophageal reflux disease. 5 Possible pulmonary nodule, right lower lobe. Plan: The patient was seen and evaluated by Dr. Ashton Continue home Trelegy, IV Solu-Medrol, antibiotics Titrate down the FiO2 as tolerated Increase his activity as tolerated Follow-up chest x-ray in a.m. We will continue to follow I, the cosigning physician, performed a history & physical examination of the patient. Lungs sounds with few scattered rhonchi, end expiratory wheeze, diminished Maintaining good O2 saturations in the 90s on 3 L/m per nasal cannula. I discussed the assessment and plan of care with my nurse practitioner, Nila Graham. I attest to the above note as dictated by her.
--- NOTE | 2021-06-27 16:02 | P.PN ---
Subjective Progress Note Date: 06/27/21 Chief Complaint: Wheezing/upper respiratory infection 60-year-old male history of COPD who had presented for evaluation of increased cough and dyspnea. Patient was seen by his primary care physician yesterday started on antibiotics and steroids. He states that throughout the night he continued to have difficulty breathing with wheezing. He is a former smoker. He does follow with pulmonology to [facility]. He denies fever. Denies chest pain. Lab work completed in ED reveals a WBC of 7.2, hemoglobin 18.4, hematocrit 54.5 and platelet count of 124, sodium 136, potassium 4.8, BUN/creatinine of 19/0.87 and blood glucose of 120 X-rays performed, showing concern for infiltrate. Blood cultures are obtained, patient is started on antibiotics in the emergency department. He had been on a azithromycin as an outpatient, is given a dose of Rocephin. As well as IV steroids. He has normal white blood cell count, normal lactic acid. He he will be admitted for continued treatment of COPD exacerbation and pneumonia. 06/25/2021 Patient is seen in follow up continues to have a cough with minimal phlegm production and continues with dyspnea on exertion. Patient currently up and walking from the bathroom and having increased dyspnea on room air and pursed lip breathing. Patient was continued on 3L via NC last night, but currently on room air. Patient states that he does not wear 02 at home. Patient follows with pulmonary Dr. Enriquez out of [place]. Patient continued on IV steroids along with breathing inhalational treatments and will continue. Pulmonary consulted. 06/26/2021 Patient is seen this morning continues to be dyspneic with minimal exertion and continues to walk around the room without oxygen and oxygen saturations have been 90% to needs to have extreme cough and bringing up phlegm and states it is worsened when lying down. Robitussin was added along with Cepacol for continued sore throat due to coughing. Patient instructed to continue with oxygen while in acute exacerbation and will work on weaning as tolerated with the possibility of requiring outpatient oxygen that will be further tested in the near future. Pulmonary is following. Patient is maintained on IV steroids and will decrease the dosage as wheezing is improved and will continue with sliding scale as needed. To continue with Robitussin and patient requested with codeine although would withhold that as that can be suppressant and we want an expectorant will add Mucinex. Encourage increased activity and continued O2 monitoring. 06/27/2021 Patient is seen in follow-up this morning continues to be bronchospastic and dyspnea on exertion. Patient is on 2-3 L via nasal cannula and oxygenating well although states he is having difficulty in breathing. Patient continues with a cough and phlegm production. Patient on continued breathing inhalational koki atments along with IV steroids and Mucinex and will continue. CBC and basic metabolic panel within normal limits. Encourage the patient to increase activity as tolerated. Pulmonary is following. Review of systems: Constitutional: No reports of fatigue, fever, or chills Cardiovascular: No reports of chest pain or palpitations Respiratory: reports continued shortness of breath and cough with sore throat from the cough GI: No reports of nausea, vomiting, or diarrhea : No reports of dysuria or retention Neurovascular: No reports of weakness or numbness All medications have been reviewed Physical exam: GENERAL: The patient is alert and oriented x3, not in any acute distress. Well developed, well nourished. HEENT: Pupils are round and equally reacting to light. EOMI. No scleral icterus. No conjunctival pallor. Normocephalic, atraumatic. No pharyngeal erythema. No thyromegaly. CARDIOVASCULAR: S1 and S2 present. No murmurs, rubs, or gallops. PULMONARY: diminished breath sounds with some scattered rhonchi noted and mild expiratory wheezing at the right lung bases noted as well ABDOMEN: Soft, obese, nontender, nondistended, normoactive bowel sounds. No palpable organomegaly. MUSCULOSKELETAL: No joint swelling or deformity. EXTREMITIES: No cyanosis, clubbing, or pedal edema. NEUROLOGICAL: Gross neurological examination did not reveal any focal deficits. SKIN: No rashes. Assessment and plan: -Community-acquired pneumonia, failed outpatient and will continue zithromax for possible acute purulent tracheobronchitis -Acute exacerbation COPD; continue IV Solu-Medrol and nebulizer treatments, pulmonary following -Gastroesophageal reflux disease; Protonix 40 mg by mouth daily -Obesity with a BMI of 30.1; counseling done on need for weight reduction -Seasonal ALLERGIES; Flonase nasal spray daily; Claritin 10 mg daily -remote history of nicotine use -DVT prophylaxis; SCDs -full code Plan: Continue current breathing inhalational treatments with IV steroids and zithromax. Patient is having continued cough with sore throat and states Mucinex is slightly helping but continues with the cough and phlegm production. EP labs today within normal limits. Use sliding scale as needed for steroid induced hyperglycemia. Will monitor closely and encourage increase activity as tolerated. Patient instructed to continue with oxygen supplementation during exacerbation and Wean FI02 as tolerated. Pulmonary following. Possible discharge in 24-48 hours. Objective - Vital Signs Vital signs: Vital Signs Temp 98.0 F 06/27/21 14:00 Pulse 82 06/27/21 15:56 Resp 18 06/27/21 14:00 BP 130/60 06/27/21 14:00 Pulse Ox 95 06/27/21 14:00 Intake & Output 06/26/21 06/27/21 06/27/21 18:59 06:59 18:59 Intake Total 350 720 250 Balance 350 720 250 Intake: Oral 350 720 250 Other: # Voids 4 0 # Bowel Movements 0 - Labs CBC & Chem 7: 06/27/21 08:31 06/27/21 08:31 Labs: Abnormal Lab Results - Last 24 Hours (Table) 06/26/21 06/26/21 06/27/21 Range/Units 16:23 20:29 06:37 Lymphocytes # (1.0-4.8) k/uL Sodium (137-145) mmol/L BUN (9-20) mg/dL Glucose (74-99) mg/dL POC Glucose (mg/dL) 137 H 145 H 138 H (75-99) mg/dL 06/27/21 06/27/21 06/27/21 Range/Units 08:31 08:31 11:39 Lymphocytes # 0.3 L (1.0-4.8) k/uL Sodium 136 L (137-145) mmol/L BUN 34 H (9-20) mg/dL Glucose 149 H (74-99) mg/dL POC Glucose (mg/dL) 106 H (75-99) mg/dL Microbiology - Last 24 Hours (Table) 06/24/21 10:33 Blood Culture - Preliminary Blood No Growth after 72 hours 06/24/21 10:33 Blood Culture - Preliminary Blood No Growth after 72 hours 06/24/21 15:05 Gram Stain - Final Sputum Sputum Culture - Final
[2021-06-27 16:12] LABS: Glucose,Whole Blood 119 mg/dL (75-99)
[2021-06-27 19:40] LABS: Glucose,Whole Blood 173 mg/dL (75-99)
[2021-06-27] MEDS: MONTELUKAST 10 MG TAB PO SCH (19:46)
[2021-06-28] MEDS: methylPREDNISolone SOD SUCCI 125 MG/2 ML VIAL IV SCH ×4 (05:34→23:54)
[2021-06-28 07:12] LABS: Glucose,Whole Blood 124 mg/dL (75-99)
[2021-06-28] MEDS: INSULIN ASPART (NovoLOG) 100 UNIT/ML VIAL SQ SCH ×4 (07:15→20:59)
[2021-06-28] MEDS: ALBUTEROL NEBULIZED 2.5 MG/3 ML INHALATION SCH ×4 (07:16→20:17)
[2021-06-28] MEDS: guaiFENesin 600 MG TABLET.ER PO SCH ×2 (07:26→20:59)
[2021-06-28] MEDS: AZITHROMYCIN 500 MG TAB PO SCH (07:26)
[2021-06-28] MEDS: LORATADINE 10 MG TAB PO SCH (07:26)
[2021-06-28] MEDS: PANTOPRAZOLE 40 MG TABLET PO SCH (07:26)
[2021-06-28] MEDS: FLUTICASONE 50MCG/SPRAY NASAL 16GM EA NOSTRIL SCH ×2 (07:29→21:00)
--- NOTE | 2021-06-28 07:52 | XR ---
EXAMINATION TYPE: XR chest 1V portable DATE OF EXAM: 06/28/2021 Comparison: 06/24/2021 Clinical History: 60-year-old male COPD, RLL infiltrate Findings: Heart normal size. Hyperinflation. Relative upper lung lucencies. Mild increased interstitial density in the lower lungs. Similar more focal density in the right lower lung. No pleural effusion. Impression: COPD. Subtle right basilar opacity is similar by interstitial changes/infiltrates in the lower lungs bilaterally are slightly increased.
--- NOTE | 2021-06-28 11:11 | P.PN ---
Subjective Progress Note Date: 06/28/21 Principal diagnosis: COPD exacerbation 60-year-old male with history of severe COPD. He apparently sees a client manager over at [facility]. The patient comes into the emergency room on June 24 complaining of increasing shortness of breath, and possible respiratory infection. He complains of cough, chest tightness, chest congestion, and some phlegm production. No fever or chills. The patient used to smoke heavily. Does not smoke currently. Apparently based on a previous pulmonary function test done in 2018, his FEV1 percent is 35. He currently takes a combination long-acting muscarinic antagonist, long-acting beta agonist, and inhaled corticosteroid preparation, called Trelegy, and, he has an albuterol inhaler as rescue. He does not require oxygen at home. Apparently he recently saw his doctor when his COPD he was starting to act up, who apparently gave him a shot of Depo-Medrol, and also shot of Rocephin. I the next day, he was worse, which is why he came in to be evaluated. White count 10.31, he will be 17.5, hematocrit 54.4, and platelet count normal. Sodium 135, potassium 4.7, chlorides 99, CO2 20, anion gap 17, BUN 32, and creatinine 1. Pro-calcitonin level is 0.22. Coronavirus testing was negative. Chest x-ray shows a small nodule in the right lower lobe, which apparently has been followed by his client manager, and possibly some right midlung infiltrate versus atelectasis. The patient is seen today 06/26/2021 in follow-up on the regular medical floor. He is currently sitting up in bed. Awake and alert in no acute distress. Still dyspneic with conversation and minimal exertion. Continues with a loose productive cough. Maintaining O2 saturations in the low 90s on 3 L/m per nasal cannula. He's been afebrile. Hemodynamically stable. Blood culture reveals no growth to date. Sputum culture pending. Blood glucose 148. He is continued on DuoNeb inhalations, Pulmicort and Perforomist inhalations, IV Solu-Medrol. Antibiotics in the form of Zithromax and Robitussin as needed. The patient is seen today 06/27/2021 in follow-up on the regular medical floor. He is currently awake and alert in no acute distress. Continues with a loose nonproductive cough. He is improved today but not quite back to his baseline. He is using his Trelegy from home now. Blood cultures reveal no growth. Sputum culture reveals no growth. White count 8.2. Hemoglobin 7.4. Sodium 136. Potassium 4.4. Creatinine 0.89. Glucose 149. He remains on IV Solu-Medrol, Mucinex, Singulair, Claritin, empiric antibiotics in the form of azithromycin. The patient is seen today 06/28/2021 in follow-up on the regular medical floor. He is currently sitting up in bed. Awake and alert in no acute distress. He was doing a bit better yesterday. He states at nighttime he has more trouble. Less bronchospastic and wheezy. He is continued on Trelegy, albuterol, IV Solu- Medrol, Singulair, Mucinex, Robitussin. He is also on Claritin and nasal flushes. Chest x-ray reveals evidence of COPD with a right basilar opacity similar or improved compared to previous. Sputum culture revealed no growth. Blood cultures revealed no growth. Objective - Vital Signs Vital signs: Vital Signs Temp 98.0 F 06/28/21 07:37 Pulse 72 06/28/21 07:37 Resp 18 06/28/21 07:37 BP 123/72 06/28/21 07:37 Pulse Ox 94 L 06/28/21 07:37 Intake & Output 06/27/21 06/28/21 06/28/21 18:59 06:59 18:59 Intake Total 430 Balance 430 Intake: Oral 430 Other: Voiding Method Toilet Toilet # Voids 3 - Exam 60-year-old male patient. No acute distress, oriented 3. Mild conversational dyspnea. On 3 L nasal cannula. No use of accessory muscles. Mucous membranes are moist. No oral lesions. Neck supple. Full range of motion. No adenopathy thyromegaly or neck vein distention. Cardiovascular examination reveals regular rhythm rate. S1-S2 normal. No S3 or S4. No discernible murmur noted. Heart sounds are distant. Heart rate 97 bpm. Lungs reveal bilateral expiratory wheezes and rhonchi. Breath sounds equal bilaterally but diminished throughout. Abdomen soft bowel sounds are heard. No masses or tenderness. Extremities are intact. No cyanosis clubbing or edema. Skin is without rash or lesion. Neurologic examination is brief but nonfocal. - Labs CBC & Chem 7: 06/27/21 08:31 06/27/21 08:31 Labs: Abnormal Lab Results - Last 24 Hours (Table) 06/27/21 06/27/21 06/27/21 Range/Units 11:39 16:10 19:38 POC Glucose (mg/dL) 106 H 119 H 173 H (75-99) mg/dL 06/28/21 Range/Units 07:03 POC Glucose (mg/dL) 124 H (75-99) mg/dL Microbiology - Last 24 Hours (Table) 06/24/21 10:33 Blood Culture - Preliminary Blood No Growth after 72 hours 06/24/21 10:33 Blood Culture - Preliminary Blood No Growth after 72 hours Assessment and Plan Assessment: 1 Acute hypoxemic respiratory failure secondary to an acute exacerbation of severe COPD. 2 Possible purulent tracheobronchitis versus bronchopneumonia, right lung. Sputum culture reveals no growth. 3 Prior history of heavy tobacco use. 4 History of gastroesophageal reflux disease. 5 Possible pulmonary nodule, right lower lobe. Plan: The patient was seen and evaluated by Dr. Ashton Chest x-ray reviewed Continue home Trelegy, IV Solu-Medrol, antibiotics Titrate down the FiO2 as tolerated Increase his activity as tolerated He's been slow to progress We will continue to follow I, the cosigning physician, performed a history & physical examination of the patient. Lungs sounds with few scattered rhonchi, end expiratory wheeze, diminished Maintaining good O2 saturations in the 90s on 3 L/m per nasal cannula. I discussed the assessment and plan of care with my nurse practitioner, Nila Graham. I attest to the above note as dictated by her.
[2021-06-28 11:23] LABS: Glucose,Whole Blood 153 mg/dL (75-99)
[2021-06-28 16:22] LABS: Glucose,Whole Blood 125 mg/dL (75-99)
[2021-06-28 20:36] LABS: Glucose,Whole Blood 138 mg/dL (75-99)
[2021-06-28] MEDS: MONTELUKAST 10 MG TAB PO SCH (20:59)
--- NOTE | 2021-06-29 02:24 | P.PN ---
Subjective Progress Note Date: 06/29/21 Chief Complaint: Wheezing/upper respiratory infection 60-year-old male history of COPD who had presented for evaluation of increased cough and dyspnea. Patient was seen by his primary care physician yesterday started on antibiotics and steroids. He states that throughout the night he continued to have difficulty breathing with wheezing. He is a former smoker. He does follow with pulmonology to [facility]. He denies fever. Denies chest pain. Lab work completed in ED reveals a WBC of 7.2, hemoglobin 18.4, hematocrit 54.5 and platelet count of 124, sodium 136, potassium 4.8, BUN/creatinine of 19/0.87 and blood glucose of 120 X-rays performed, showing concern for infiltrate. Blood cultures are obtained, patient is started on antibiotics in the emergency department. He had been on a azithromycin as an outpatient, is given a dose of Rocephin. As well as IV steroids. He has normal white blood cell count, normal lactic acid. He he will be admitted for continued treatment of COPD exacerbation and pneumonia. 06/25/2021 Patient is seen in follow up continues to have a cough with minimal phlegm production and continues with dyspnea on exertion. Patient currently up and walking from the bathroom and having increased dyspnea on room air and pursed lip breathing. Patient was continued on 3L via [place] last night, but currently on room air. Patient states that he does not wear 02 at home. Patient follows with pulmonary Dr. Enriquez out of [place]. Patient continued on IV steroids along with breathing inhalational treatments and will continue. Pulmonary consulted. 06/26/2021 Patient is seen this morning continues to be dyspneic with minimal exertion and continues to walk around the room without oxygen and oxygen saturations have been 90% to needs to have extreme cough and bringing up phlegm and states it is worsened when lying down. Robitussin was added along with Cepacol for continued sore throat due to coughing. Patient instructed to continue with oxygen while in acute exacerbation and will work on weaning as tolerated with the possibility of requiring outpatient oxygen that will be further tested in the near future. Pulmonary is following. Patient is maintained on IV steroids and will decrease the dosage as wheezing is improved and will continue with sliding scale as needed. To continue with Robitussin and patient requested with codeine although would withhold that as that can be suppressant and we want an expectorant will add Mucinex. Encourage increased activity and continued O2 monitoring. 06/27/2021 Patient is seen in follow-up this morning continues to be bronchospastic and dyspnea on exertion. Patient is on 2-3 L via nasal cannula and oxygenating well although states he is having difficulty in breathing. Patient continues with a cough and phlegm production. Patient on continued breathing inhalational koki atments along with IV steroids and Mucinex and will continue. CBC and basic metabolic panel within normal limits. Encourage the patient to increase activity as tolerated. Pulmonary is following. 06/28/2021 Patient continues to have wheezing and cough with shortness of breath and continued on 3L via [place]. Per nursing staff, pulse ox drops quickly off oxygen and will need home 02 eval once stabilized and being discharged. Patient may require 02 secondary to COPD. Patient is hesitant about going home on 02 which will limit his working abilities. Patient is tearful. Patient states he had a "rough night with his breathing". PUlmonary following. Patient continued on breathing treatments and IV steroids have been increased to 60mg Q6hr. Review of systems: Constitutional: reports of fatigue, no reports of fever, or chills Cardiovascular: No reports of chest pain or palpitations Respiratory: reports continued shortness of breath and cough which doesn't feel is improving GI: No reports of nausea, vomiting, or diarrhea : No reports of dysuria or retention Neurovascular: No reports of weakness or numbness All medications have been reviewed Physical exam: GENERAL: The patient is alert and oriented x3, not in any acute distress. Well developed, well nourished. HEENT: Pupils are round and equally reacting to light. EOMI. No scleral icterus. No conjunctival pallor. Normocephalic, atraumatic. No pharyngeal erythema. No thyromegaly. CARDIOVASCULAR: S1 and S2 present. No murmurs, rubs, or gallops. PULMONARY: diminished breath sounds with some scattered rhonchi noted and mild expiratory wheezing at the right lung bases noted as well, wheezing improving slightly with diminished air entry noted, tight ABDOMEN: Soft, obese, nontender, nondistended, normoactive bowel sounds. No p alpable organomegaly. MUSCULOSKELETAL: No joint swelling or deformity. EXTREMITIES: No cyanosis, clubbing, or pedal edema. NEUROLOGICAL: Gross neurological examination did not reveal any focal deficits. SKIN: No rashes. Assessment and plan: -Community-acquired pneumonia, failed outpatient and will continue zithromax for possible acute purulent tracheobronchitis -Acute exacerbation COPD; continue IV Solu-Medrol and nebulizer treatments, pulmonary following -Gastroesophageal reflux disease; Protonix 40 mg by mouth daily -Obesity with a BMI of 30.1; counseling done on need for weight reduction -Seasonal ALLERGIES; Flonase nasal spray daily; Claritin 10 mg daily -remote history of nicotine use -DVT prophylaxis; SCDs -full code Plan: Continue current breathing inhalational treatments with IV steroids and zithromax. Patient is having continued cough. Had a rough night of shortness of breath and cough and feels exhausted. Patient is resting now, but easily arousable. Patient continues to require 3L 02 via [place] and will have staff do a home eval. Case management will be made aware. Use sliding scale as needed for steroid induced hyperglycemia. Will monitor closely and encourage increase activity as tolerated. Patient slow to improve. Objective - Vital Signs Vital signs: Vital Signs Temp 98.0 F 06/28/21 07:37 Pulse 72 06/28/21 07:37 Resp 18 06/28/21 07:37 BP 123/72 06/28/21 07:37 Pulse Ox 94 L 06/28/21 07:37 Intake & Output 06/27/21 06/28/21 06/28/21 18:59 06:59 18:59 Intake Total 430 Balance 430 Intake: Oral 430 Other: Voiding Method Toilet Toilet # Voids 3 - Labs CBC & Chem 7: 06/27/21 08:31 06/27/21 08:31 Labs: Abnormal Lab Results - Last 24 Hours (Table) 06/27/21 06/27/21 06/27/21 Range/Units 11:39 16:10 19:38 POC Glucose (mg/dL) 106 H 119 H 173 H (75-99) mg/dL 06/28/21 Range/Units 07:03 POC Glucose (mg/dL) 124 H (75-99) mg/dL Microbiology - Last 24 Hours (Table) 06/24/21 10:33 Blood Culture - Preliminary Blood No Growth after 72 hours 06/24/21 10:33 Blood Culture - Preliminary Blood No Growth after 72 hours
[2021-06-29] MEDS: methylPREDNISolone SOD SUCCI 125 MG/2 ML VIAL IV SCH ×4 (05:47→23:59)
[2021-06-29] MEDS: ALBUTEROL NEBULIZED 2.5 MG/3 ML INHALATION SCH ×4 (07:04→19:10)
[2021-06-29 07:07] LABS: Glucose,Whole Blood 128 mg/dL (75-99)
[2021-06-29] MEDS: INSULIN ASPART (NovoLOG) 100 UNIT/ML VIAL SQ SCH ×4 (07:18→20:54)
[2021-06-29] MEDS: LORATADINE 10 MG TAB PO SCH (07:45)
[2021-06-29] MEDS: AZITHROMYCIN 500 MG TAB PO SCH (07:46)
[2021-06-29] MEDS: guaiFENesin 600 MG TABLET.ER PO SCH ×2 (07:46→20:54)
[2021-06-29] MEDS: FLUTICASONE 50MCG/SPRAY NASAL 16GM EA NOSTRIL SCH ×2 (07:47→20:55)
[2021-06-29] MEDS: PANTOPRAZOLE 40 MG TABLET PO SCH (08:02)
[2021-06-29 11:27] LABS: Glucose,Whole Blood 135 mg/dL (75-99)
--- NOTE | 2021-06-29 11:45 | P.PN ---
Subjective Progress Note Date: 06/29/21 Principal diagnosis: COPD exacerbation 60-year-old male with history of severe COPD. He apparently sees a metal neutralizer over at [facility]. The patient comes into the emergency room on June 24 complaining of increasing shortness of breath, and possible respiratory infection. He complains of cough, chest tightness, chest congestion, and some phlegm production. No fever or chills. The patient used to smoke heavily. Does not smoke currently. Apparently based on a previous pulmonary function test done in 2018, his FEV1 percent is 35. He currently takes a combination long-acting muscarinic antagonist, long-acting beta agonist, and inhaled corticosteroid preparation, called Trelegy, and, he has an albuterol inhaler as rescue. He does not require oxygen at home. Apparently he recently saw his doctor when his COPD he was starting to act up, who apparently gave him a shot of Depo-Medrol, and also shot of Rocephin. I the next day, he was worse, which is why he came in to be evaluated. White count 10.31, he will be 17.5, hematocrit 54.4, and platelet count normal. Sodium 135, potassium 4.7, chlorides 99, CO2 20, anion gap 17, BUN 32, and creatinine 1. Pro-calcitonin level is 0.22. Coronavirus testing was negative. Chest x-ray shows a small nodule in the right lower lobe, which apparently has been followed by his metal neutralizer, and possibly some right midlung infiltrate versus atelectasis. The patient is seen today 06/26/2021 in follow-up on the regular medical floor. He is currently sitting up in bed. Awake and alert in no acute distress. Still dyspneic with conversation and minimal exertion. Continues with a loose productive cough. Maintaining O2 saturations in the low 90s on 3 L/m per nasal cannula. He's been afebrile. Hemodynamically stable. Blood culture reveals no growth to date. Sputum culture pending. Blood glucose 148. He is continued on DuoNeb inhalations, Pulmicort and Perforomist inhalations, IV Solu-Medrol. Antibiotics in the form of Zithromax and Robitussin as needed. The patient is seen today 06/27/2021 in follow-up on the regular medical floor. He is currently awake and alert in no acute distress. Continues with a loose nonproductive cough. He is improved today but not quite back to his baseline. He is using his Trelegy from home now. Blood cultures reveal no growth. Sputum culture reveals no growth. White count 8.2. Hemoglobin 7.4. Sodium 136. Potassium 4.4. Creatinine 0.89. Glucose 149. He remains on IV Solu-Medrol, Mucinex, Singulair, Claritin, empiric antibiotics in the form of azithromycin. The patient is seen today 06/28/2021 in follow-up on the regular medical floor. He is currently sitting up in bed. Awake and alert in no acute distress. He was doing a bit better yesterday. He states at nighttime he has more trouble. Less bronchospastic and wheezy. He is continued on Trelegy, albuterol, IV Solu- Medrol, Singulair, Mucinex, Robitussin. He is also on Claritin and nasal flushes. Chest x-ray reveals evidence of COPD with a right basilar opacity similar or improved compared to previous. Sputum culture revealed no growth. Blood cultures revealed no growth. The patient is seen today 06/29/2021 and follow-up on the regular medical floor. He is currently sitting up at the bedside. Awake and alert in no acute distress. He continues to improve daily but has been slow to progress. Still dyspneic with minimal exertion. Maintaining good O2 saturations up to 98% on 3 L/m per nasal cannula. Afebrile. Hemodynamically stable. Blood cultures revealed no growth. Sputum culture revealed no growth. Blood glucose 135. He is continued on Trelegy, albuterol, IV Solu-Medrol, Singulair, Mucinex, Robitussin. Objective - Vital Signs Vital signs: Vital Signs Temp 98.2 F 06/29/21 08:00 Pulse 82 06/29/21 11:29 Resp 18 06/29/21 08:00 BP 116/68 06/29/21 08:00 Pulse Ox 98 06/29/21 08:00 Intake & Output 06/28/21 06/29/21 06/29/21 18:59 06:59 18:59 Other: Voiding Method Toilet Toilet # Voids 3 1 - Exam 60-year-old male patient. No acute distress, oriented 3. Mild exertional dyspnea. On 3 L nasal cannula. No use of accessory muscles. Mucous membranes are moist. No oral lesions. Neck supple. Full range of motion. No adenopathy thyromegaly or neck vein distention. Cardiovascular examination reveals regular rhythm rate. S1-S2 normal. No S3 or S4. No discernible murmur noted. Heart sounds are distant. Heart rate 97 bpm. Lungs reveal bilateral expiratory wheezes and rhonchi. Breath sounds equal bilaterally but diminished throughout. Abdomen soft bowel sounds are heard. No masses or tenderness. Extremities are intact. No cyanosis clubbing or edema. Skin is without rash or lesion. Neurologic examination is brief but nonfocal. - Labs CBC & Chem 7: 06/27/21 08:31 06/27/21 08:31 Labs: Abnormal Lab Results - Last 24 Hours (Table) 06/28/21 06/28/21 06/29/21 Range/Units 16:21 20:33 06:48 POC Glucose (mg/dL) 125 H 138 H 128 H (75-99) mg/dL 06/29/21 Range/Units 11:22 POC Glucose (mg/dL) 135 H (75-99) mg/dL Microbiology - Last 24 Hours (Table) 06/24/21 10:33 Blood Culture - Preliminary Blood No Growth after 96 hours 06/24/21 10:33 Blood Culture - Preliminary Blood No Growth after 96 hours Assessment and Plan Assessment: 1 Acute hypoxemic respiratory failure secondary to an acute exacerbation of severe COPD. 2 Possible purulent tracheobronchitis versus bronchopneumonia, right lung. Sputum culture reveals no growth. 3 Prior history of heavy tobacco use. 4 History of gastroesophageal reflux disease. 5 Possible pulmonary nodule, right lower lobe. Plan: The patient was seen and evaluated by Dr. Ashton Continue home Trelegy, IV Solu-Medrol, antibiotics Titrate down the FiO2 as tolerated Increase his activity as tolerated He's been slow to progress Probable discharge within the next 24 hours We will continue to follow I, the cosigning physician, performed a history & physical examination of the patient. Lungs sounds with end expiratory wheeze, diminished Maintaining good O2 saturations in the 90s on 3 L/m per nasal cannula. I discussed the assessment and plan of care with my nurse practitioner, Nila Graham. I attest to the above note as dictated by her.
[2021-06-29 14:02] VITALS: BMI 30.1
[2021-06-29 16:17] LABS: Glucose,Whole Blood 127 mg/dL (75-99)
--- NOTE | 2021-06-29 16:40 | P.PN ---
Subjective Progress Note Date: 06/29/21 Chief Complaint: Wheezing/upper respiratory infection 60-year-old male history of COPD who had presented for evaluation of increased cough and dyspnea. Patient was seen by his primary care physician yesterday started on antibiotics and steroids. He states that throughout the night he continued to have difficulty breathing with wheezing. He is a former smoker. He does follow with pulmonology to [facility]. He denies fever. Denies chest pain. Lab work completed in ED reveals a WBC of 7.2, hemoglobin 18.4, hematocrit 54.5 and platelet count of 124, sodium 136, potassium 4.8, BUN/creatinine of 19/0.87 and blood glucose of 120 X-rays performed, showing concern for infiltrate. Blood cultures are obtained, patient is started on antibiotics in the emergency department. He had been on a azithromycin as an outpatient, is given a dose of Rocephin. As well as IV steroids. He has normal white blood cell count, normal lactic acid. He he will be admitted for continued treatment of COPD exacerbation and pneumonia. 06/25/2021 Patient is seen in follow up continues to have a cough with minimal phlegm production and continues with dyspnea on exertion. Patient currently up and walking from the bathroom and having increased dyspnea on room air and pursed lip breathing. Patient was continued on 3L via NC last night, but currently on room air. Patient states that he does not wear 02 at home. Patient follows with pulmonary Dr. Enriquez out of [place]. Patient continued on IV steroids along with breathing inhalational treatments and will continue. Pulmonary consulted. 06/26/2021 Patient is seen this morning continues to be dyspneic with minimal exertion and continues to walk around the room without oxygen and oxygen saturations have been 90% to needs to have extreme cough and bringing up phlegm and states it is worsened when lying down. Robitussin was added along with Cepacol for continued sore throat due to coughing. Patient instructed to continue with oxygen while in acute exacerbation and will work on weaning as tolerated with the possibility of requiring outpatient oxygen that will be further tested in the near future. Pulmonary is following. Patient is maintained on IV steroids and will decrease the dosage as wheezing is improved and will continue with sliding scale as needed. To continue with Robitussin and patient requested with codeine although would withhold that as that can be suppressant and we want an expectorant will add Mucinex. Encourage increased activity and continued O2 monitoring. 06/27/2021 Patient is seen in follow-up this morning continues to be bronchospastic and dyspnea on exertion. Patient is on 2-3 L via nasal cannula and oxygenating well although states he is having difficulty in breathing. Patient continues with a cough and phlegm production. Patient on continued breathing inhalational koki atments along with IV steroids and Mucinex and will continue. CBC and basic metabolic panel within normal limits. Encourage the patient to increase activity as tolerated. Pulmonary is following. 06/28/2021 Patient continues to have wheezing and cough with shortness of breath and continued on 3L via NC. Per nursing staff, pulse ox drops quickly off oxygen and will need home 02 eval once stabilized and being discharged. Patient may require 02 secondary to COPD. Patient is hesitant about going home on 02 which will limit his working abilities. Patient is tearful. Patient states he had a "rough night with his breathing". PUlmonary following. Patient continued on breathing treatments and IV steroids have been increased to 60mg Q6hr. 06/29/2021 Patient is seen this morning in follow-up appears to be more comfortable and calm and breathing slightly improved. Improvement on air entry although continues to be wheezing on exam and bronchospastic at times. Patient continues on 2-3 L and oxygen saturations drop below 88% with minimal exertion. Home O2 eval was done and patient will likely require oxygen on discharge secondary to COPD. Patient does follow with Dr. Roche out of [place] as his primary culinary manager. Patient did have PFT studies done previously and [facility] once stabilized and discharged. Patient continues on IV steroids along with breathing inhalational treatments and Zithromax and will continue that this time. Continue sliding scale as needed for increased blood sugars secondary to steroids. Pulmonary is following closely. Again encouraged to increase activity as tolerated. Case management provided prescription for home oxygen and will arrange for oxygen to be delivered to his room. Discharge in 24 hours. Review of systems: Constitutional: reports of fatigue, no reports of fever, or chills Cardiovascular: No reports of chest pain or palpitations Respiratory: reports continued shortness of breath and cough which feels is slowly improving GI: No reports of nausea, vomiting, or diarrhea : No reports of dysuria or retention Neurovascular: No reports of weakness or numbness All medications have been reviewed Physical exam: GENERAL: The patient is alert and oriented x3, not in any acute distress. Well developed, well nourished. HEENT: Pupils are round and equally reacting to light. EOMI. No scleral icterus. No conjunctival pallor. Normocephalic, atraumatic. No pharyngeal erythema. No thyromegaly. CARDIOVASCULAR: S1 and S2 present. No murmurs, rubs, or gallops. PULMONARY: diminished breath sounds with some scattered rhonchi noted and mild expiratory wheezing at the right lung bases noted as well, wheezing improving slightly with improvement in air entry noted on exam ABDOMEN: Soft, obese, nontender, nondistended, normoactive bowel sounds. No palpable organomegaly. MUSCULOSKELETAL: No joint swelling or deformity. EXTREMITIES: No cyanosis, clubbing, or pedal edema. NEUROLOGICAL: Gross neurological examination did not reveal any focal deficits. SKIN: No rashes. Assessment and plan: -Community-acquired pneumonia, failed outpatient and will continue zithromax for possible acute purulent tracheobronchitis -Acute exacerbation COPD; continue IV Solu-Medrol and nebulizer treatments, pul monary following -Gastroesophageal reflux disease; Protonix 40 mg by mouth daily -Obesity with a BMI of 30.1; counseling done on need for weight reduction -Seasonal ALLERGIES; Flonase nasal spray daily; Claritin 10 mg daily -remote history of nicotine use -DVT prophylaxis; SCDs -full code Plan: Continue current breathing inhalational treatments with IV steroids and zithromax. Patient is having continued cough. Breathing somewhat improved today and increased air entry noted on exam with continued wheezing although improved from yesterday. Patient states he feels somewhat improved today. Patient continues to require 3L 02 via NC 02 and staff performed home O2 eval and oxygen was 88% on room air and worsens with exertion. Patient will qualify for 3 L of oxygen via nasal cannula secondary to COPD and will need outpatient follow-up with his primary culinary manager. Use sliding scale as needed for steroid induced hyperglycemia. Will monitor closely and encourage increase activity as tolerated. Patient slow to improve possible discharge in 24 hours. Objective - Vital Signs Vital signs: Vital Signs Temp 98.2 F 06/29/21 08:00 Pulse 69 06/29/21 08:00 Resp 18 06/29/21 08:00 BP 116/68 06/29/21 08:00 Pulse Ox 98 06/29/21 08:00 Intake & Output 06/28/21 06/29/21 06/29/21 18:59 06:59 18:59 Other: Voiding Method Toilet Toilet # Voids 3 1 - Labs CBC & Chem 7: 06/27/21 08:31 06/27/21 08:31 Labs: Abnormal Lab Results - Last 24 Hours (Table) 06/28/21 06/28/21 06/28/21 Range/Units 11:19 16:21 20:33 POC Glucose (mg/dL) 153 H 125 H 138 H (75-99) mg/dL 06/29/21 Range/Units 06:48 POC Glucose (mg/dL) 128 H (75-99) mg/dL Microbiology - Last 24 Hours (Table) 06/24/21 10:33 Blood Culture - Preliminary Blood No Growth after 96 hours 06/24/21 10:33 Blood Culture - Preliminary Blood No Growth after 96 hours
[2021-06-29 20:38] LABS: Glucose,Whole Blood 176 mg/dL (75-99)
[2021-06-29] MEDS: MONTELUKAST 10 MG TAB PO SCH (20:54)
[2021-06-30] MEDS: methylPREDNISolone SOD SUCCI 125 MG/2 ML VIAL IV SCH (05:32)
[2021-06-30 06:57] LABS: Glucose,Whole Blood 116 mg/dL (75-99)
[2021-06-30] MEDS: INSULIN ASPART (NovoLOG) 100 UNIT/ML VIAL SQ SCH ×2 (07:05→11:50)
[2021-06-30 07:40] VITALS: BP 103/63; RESP 20; TEMP 98.1
[2021-06-30] MEDS: AZITHROMYCIN 500 MG TAB PO SCH (07:42)
[2021-06-30] MEDS: PANTOPRAZOLE 40 MG TABLET PO SCH (07:42)
[2021-06-30] MEDS: LORATADINE 10 MG TAB PO SCH (07:42)
[2021-06-30] MEDS: guaiFENesin 600 MG TABLET.ER PO SCH (07:42)
[2021-06-30] MEDS: ALBUTEROL NEBULIZED 2.5 MG/3 ML INHALATION SCH ×2 (08:00→11:14)
[2021-06-30 08:22] VITALS: PULSE 80
[2021-06-30] MEDS: FLUTICASONE 50MCG/SPRAY NASAL 16GM EA NOSTRIL SCH (10:47)
--- NOTE | 2021-06-30 11:21 | P.DS ---
Providers Date of admission: 06/24/21 10:42 Attending physician: Rudy Roldan MD Consults: 06/25/21 09:37 Consult Physician Urgent Consulting Provider: Sandra Major Consult Reason/Comments: COPD exac Do you want consulting provider notified?: Yes Primary care physician: [facility] Course: 60-year-old male history of COPD who had presented for evaluation of increased cough and dyspnea. Patient was seen by his primary care physician yesterday started on antibiotics and steroids. He states that throughout the night he continued to have difficulty breathing with wheezing. He is a former smoker. He does follow with pulmonology to [facility]. He denies fever. Denies chest pain. Lab work completed in ED reveals a WBC of 7.2, hemoglobin 18.4, hematocrit 54.5 and platelet count of 124, sodium 136, potassium 4.8, BUN/creatinine of 19/0.87 and blood glucose of 120 X-rays performed, showing concern for infiltrate. Blood cultures are obtained, patient is started on antibiotics in the emergency department. He had been on a azithromycin as an outpatient, is given a dose of Rocephin. As well as IV steroids. He has normal white blood cell count, normal lactic acid. He he will be admitted for continued treatment of COPD exacerbation and pneumonia. 06/25/2021 Patient is seen in follow up continues to have a cough with minimal phlegm production and continues with dyspnea on exertion. Patient currently up and walking from the bathroom and having increased dyspnea on room air and pursed lip breathing. Patient was continued on 3L via NC last night, but currently on room air. Patient states that he does not wear 02 at home. Patient follows with pulmonary Dr. Enriquez out of [place]. Patient continued on IV steroids along with breathing inhalational treatments and will continue. Pulmonary consulted. 06/26/2021 Patient is seen this morning continues to be dyspneic with minimal exertion and continues to walk around the room without oxygen and oxygen saturations have been 90% to needs to have extreme cough and bringing up phlegm and states it is worsened when lying down. Robitussin was added along with Cepacol for continued sore throat due to coughing. Patient instructed to continue with oxygen while in acute exacerbation and will work on weaning as tolerated with the possibility of requiring outpatient oxygen that will be further tested in the near future. Pulmonary is following. Patient is maintained on IV steroids and will decrease the dosage as wheezing is improved and will continue with sliding scale as needed. To continue with Robitussin and patient requested with codeine although would withhold that as that can be suppressant and we want an expectorant will add Mucinex. Encourage increased activity and continued O2 monitoring. 06/27/2021 Patient is seen in follow-up this morning continues to be bronchospastic and dyspnea on exertion. Patient is on 2-3 L via nasal cannula and oxygenating well although states he is having difficulty in breathing. Patient continues with a cough and phlegm production. Patient on continued breathing inhalational treatments along with IV steroids and Mucinex and will continue. CBC and basic metabolic panel within normal limits. Encourage the patient to increase activity as tolerated. Pulmonary is following. 06/28/2021 Patient continues to have wheezing and cough with shortness of breath and continued on 3L via NC. Per nursing staff, pulse ox drops quickly off oxygen and will need home 02 eval once stabilized and being discharged. Patient may require 02 secondary to COPD. Patient is hesitant about going home on 02 which will limit his working abilities. Patient is tearful. Patient states he had a "rough night with his breathing". PUlmonary following. Patient continued on breathing treatments and IV steroids have been increased to 60mg Q6hr. 06/29/2021 Patient is seen this morning in follow-up appears to be more comfortable and calm and breathing slightly improved. Improvement on air entry although continues to be wheezing on exam and bronchospastic at times. Patient continues on 2-3 L and oxygen saturations drop below 88% with minimal exertion. Home O2 eval was done and patient will likely require oxygen on discharge secondary to COPD. Patient does follow with Dr. Roche out of [place] as his primary derrick man. Patient did have PFT studies done previously and will need further workup outpatient once stabilized and discharged. Patient continues on IV steroids along with breathing inhalational treatments and Zithromax and will continue that this time. Continue sliding scale as needed for increased blood sugars secondary to steroids. Pulmonary is following closely. Again encouraged to increase activity as tolerated. Case management provided prescription for home oxygen and will arrange for oxygen to be delivered to his room. Discharge in 24 hours. 06/30/2021 Patient has significant clinical improvement although still having some wheeze and cough with sputum production. Patient was evaluated by pulmonology, cleared for discharge. Patient will be discharged today with weaning dose of steroids. We will add Spiriva to his inhaler regimen. Patient will undergo home O2 evaluation before discharge. Physical exam: GENERAL: The patient is alert and oriented x3, not in any acute distress. Well developed, well nourished. HEENT: Pupils are round and equally reacting to light. EOMI. No scleral icterus. No conjunctival pallor. Normocephalic, atraumatic. No pharyngeal erythema. No thyromegaly. CARDIOVASCULAR: S1 and S2 present. No murmurs, rubs, or gallops. PULMONARY: diminished breath sounds with some scattered rhonchi noted and mild expiratory wheezing at the right lung bases noted as well, wheezing improving slightly with improvement in air entry noted on exam ABDOMEN: Soft, obese, nontender, nondistended, normoactive bowel sounds. No palpable organomegaly. MUSCULOSKELETAL: No joint swelling or deformity. EXTREMITIES: No cyanosis, clubbing, or pedal edema. NEUROLOGICAL: Gross neurological examination did not reveal any focal deficits. SKIN: No rashes. Assessment and plan: -Tracheobronchitis: Patient is on Solu-Medrol. -Acute exacerbation COPD; continue IV Solu-Medrol and nebulizer treatments, pulmonary following -Gastroesophageal reflux disease; Protonix 40 mg by mouth daily -Obesity -Seasonal ALLERGIES; Flonase nasal spray daily; Claritin 10 mg daily -remote history of nicotine use Patient Condition at Discharge: Stable Plan - Discharge Summary Discharge Rx Participant: Yes New Discharge Prescriptions: New Tiotropium Baker [Spiriva] 1 cap INHALATION DAILY #1 device predniSONE 10 mg PO DAILY #30 tab Continue Pantoprazole [Protonix] 40 mg PO DAILY Fluticasone Nasal [place] [Flonase Nasal [place]] 2 spr EA NOSTRIL BID Loratadine [Claritin] 10 mg PO DAILY Fluticasone/Umeclidin/Vilanter [Trelegy Ellipta 100-62.5-25] 1 puff INHALATION RT-DAILY Albuterol Sulfate [Ventolin HFA] 2 puff INHALATION RT-Q4H PRN PRN Reason: Shortness Of Breath Azithromycin [Zithromax Z-pack (6 tabs)] See Taper PO DAILY diphenhydrAMINE HCL [Benadryl] 25 mg PO QID PRN PRN Reason: Allergy Symptoms Montelukast [Singulair] 10 mg PO HS Discontinued predniSONE [Deltasone] 40 mg PO DAILY Discharge Medication List Fluticasone Nasal [place] [Flonase Nasal [place]] 2 spr EA NOSTRIL BID 02/03/18 [History] Pantoprazole [Protonix] 40 mg PO DAILY 02/03/18 [History] Fluticasone/Umeclidin/Vilanter [Trelegy Ellipta 100-62.5-25] 1 puff INHALATION RT-DAILY 12/16/19 [History] Loratadine [Claritin] 10 mg PO DAILY 12/16/19 [History] Albuterol Sulfate [Ventolin HFA] 2 puff INHALATION RT-Q4H PRN 06/24/21 [History] Azithromycin [Zithromax Z-pack (6 tabs)] See Taper PO DAILY 06/24/21 [History] Montelukast [Singulair] 10 mg PO HS 06/24/21 [History] diphenhydrAMINE HCL [Benadryl] 25 mg PO QID PRN 06/24/21 [History] Tiotropium Baker [Spiriva] 1 cap INHALATION DAILY #1 device 06/30/21 [Rx] predniSONE 10 mg PO DAILY #30 tab 06/30/21 [Rx] Follow up Appointment(s)/Referral(s): [facility],Equipment [NON-STAFF] - (*Please call [facility] once home to arrange delivery of your oxygen concentrator. ) Jeremias Brush MD [Family Provider] - 1 Week Grace Gardner MD [Primary Care Provider] - 1-2 days Activity/Diet/Wound Care/Special Instructions: Discharge Disposition: HOME SELF-CARE
[2021-06-30 11:25] LABS: Glucose,Whole Blood 136 mg/dL (75-99)
--- NOTE | 2021-06-30 12:56 | P.PN ---
Subjective Progress Note Date: 06/30/21 Principal diagnosis: COPD exacerbation 60-year-old male with history of severe COPD. He apparently sees a fire prevention engineer over at [facility]. The patient comes into the emergency room on June 24 complaining of increasing shortness of breath, and possible respiratory infection. He complains of cough, chest tightness, chest congestion, and some phlegm production. No fever or chills. The patient used to smoke heavily. Does not smoke currently. Apparently based on a previous pulmonary function test done in 2018, his FEV1 percent is 35. He currently takes a combination long-acting muscarinic antagonist, long-acting beta agonist, and inhaled corticosteroid preparation, called Trelegy, and, he has an albuterol inhaler as rescue. He does not require oxygen at home. Apparently he recently saw his doctor when his COPD he was starting to act up, who apparently gave him a shot of Depo-Medrol, and also shot of Rocephin. I the next day, he was worse, which is why he came in to be evaluated. White count 10.31, he will be 17.5, hematocrit 54.4, and platelet count normal. Sodium 135, potassium 4.7, chlorides 99, CO2 20, anion gap 17, BUN 32, and creatinine 1. Pro-calcitonin level is 0.22. Coronavirus testing was negative. Chest x-ray shows a small nodule in the right lower lobe, which apparently has been followed by his fire prevention engineer, and possibly some right midlung infiltrate versus atelectasis. The patient is seen today 06/26/2021 in follow-up on the regular medical floor. He is currently sitting up in bed. Awake and alert in no acute distress. Still dyspneic with conversation and minimal exertion. Continues with a loose productive cough. Maintaining O2 saturations in the low 90s on 3 L/m per nasal cannula. He's been afebrile. Hemodynamically stable. Blood culture reveals no growth to date. Sputum culture pending. Blood glucose 148. He is continued on DuoNeb inhalations, Pulmicort and Perforomist inhalations, IV Solu-Medrol. Antibiotics in the form of Zithromax and Robitussin as needed. The patient is seen today 06/27/2021 in follow-up on the regular medical floor. He is currently awake and alert in no acute distress. Continues with a loose nonproductive cough. He is improved today but not quite back to his baseline. He is using his Trelegy from home now. Blood cultures reveal no growth. Sputum culture reveals no growth. White count 8.2. Hemoglobin 7.4. Sodium 136. Potassium 4.4. Creatinine 0.89. Glucose 149. He remains on IV Solu-Medrol, Mucinex, Singulair, Claritin, empiric antibiotics in the form of azithromycin. The patient is seen today 06/28/2021 in follow-up on the regular medical floor. He is currently sitting up in bed. Awake and alert in no acute distress. He was doing a bit better yesterday. He states at nighttime he has more trouble. Less bronchospastic and wheezy. He is continued on Trelegy, albuterol, IV Solu- Medrol, Singulair, Mucinex, Robitussin. He is also on Claritin and nasal flushes. Chest x-ray reveals evidence of COPD with a right basilar opacity similar or improved compared to previous. Sputum culture revealed no growth. Blood cultures revealed no growth. The patient is seen today 06/29/2021 and follow-up on the regular medical floor. He is currently sitting up at the bedside. Awake and alert in no acute distress. He continues to improve daily but has been slow to progress. Still dyspneic with minimal exertion. Maintaining good O2 saturations up to 98% on 3 L/m per nasal cannula. Afebrile. Hemodynamically stable. Blood cultures revealed no growth. Sputum culture revealed no growth. Blood glucose 135. He is continued on Trelegy, albuterol, IV Solu-Medrol, Singulair, Mucinex, Robitussin. The patient is seen today 06/30/2021 and follow-up on the regular medical floor. Currently sitting up in a chair at the bedside. Awake and alert in no acute distress. Doing better. Less short of breath. Continues with a loose productive cough. No fever chills or night sweats. He is continued on Trelegy, albuterol, IV Solu-Medrol, Singulair, Mucinex, Robitussin. Antibiotics in the form of azithromycin. Objective - Vital Signs Vital signs: Vital Signs Temp 98.1 F 06/30/21 07:39 Pulse 80 06/30/21 08:21 Resp 20 06/30/21 07:39 BP 103/63 06/30/21 07:39 Pulse Ox 98 06/30/21 07:39 Intake & Output 06/29/21 06/30/21 06/30/21 18:59 06:59 18:59 Weight 89.811 kg Other: Voiding Method Toilet Toilet # Voids 4 0 # Bowel Movements 0 - Exam 60-year-old male patient. No acute distress, oriented 3. Mild exertional dyspnea. On 2 L nasal cannula. No use of accessory muscles. Mucous membranes are moist. No oral lesions. Neck supple. Full range of motion. No adenopathy thyromegaly or neck vein distention. Cardiovascular examination reveals regular rhythm rate. S1-S2 normal. No S3 or S4. No discernible murmur noted. Heart sounds are distant. Lungs reveal bilateral expiratory wheezes and rhonchi. Breath sounds equal bilaterally but diminished throughout. Abdomen soft bowel sounds are heard. No masses or tenderness. Extremities are intact. No cyanosis clubbing or edema. Skin is without rash or lesion. Neurologic examination is brief but nonfocal. - Labs CBC & Chem 7: 06/27/21 08:31 06/27/21 08:31 Labs: Abnormal Lab Results - Last 24 Hours (Table) 06/29/21 06/29/21 06/30/21 Range/Units 16:15 20:36 06:50 POC Glucose (mg/dL) 127 H 176 H 116 H (75-99) mg/dL 06/30/21 Range/Units 11:21 POC Glucose (mg/dL) 136 H (75-99) mg/dL Microbiology - Last 24 Hours (Table) 06/24/21 10:33 Blood Culture - Final Blood No Growth after 144 hours 06/24/21 10:33 Blood Culture - Final Blood No Growth after 144 hours Assessment and Plan Assessment: 1 Acute hypoxemic respiratory failure secondary to an acute exacerbation of severe COPD. 2 Possible purulent tracheobronchitis versus bronchopneumonia, right lung. Sputum culture reveals no growth. 3 Prior history of heavy tobacco use. 4 History of gastroesophageal reflux disease. 5 Possible pulmonary nodule, right lower lobe. Plan: The patient was seen and evaluated by Dr. Ashton Cleared for discharge from the pulmonary standpoint May require home oxygen Complete a prednisone taper Complete a course of antibiotics Continue his home pulmonary medications Follow-up with his own fire prevention engineer I, the cosigning physician, performed a history & physical examination of the p atient. Lungs sounds with end expiratory wheeze, diminished Maintaining good O2 saturations in the 90s on 2 L/m per nasal cannula. I discussed the assessment and plan of care with my nurse practitioner, Nila Graham. I attest to the above note as dictated by her.
[2021-07-01] MEDS ORDERED: predniSONE 20 MG TAB PO SCH (09:00)
== END 2021-06-30 13:58 | disposition home or self-care (01) | DRG 190 ==
LOC: EC 08:36 → 4SSUR 10:42
PROVIDERS: ADMIT Internal Medicine; ATTEND Internal Medicine
DX: J44.0 Chronic obstructive pulmonary disease with (acute) lower respiratory infection (principal); J18.9 Pneumonia, unspecified organism; J96.01 Acute respiratory failure with hypoxia; E66.9 Obesity, unspecified; J44.1 Chronic obstructive pulmonary disease with (acute) exacerbation; J30.2 Other seasonal allergic rhinitis; K21.9 Gastro-esophageal reflux disease without esophagitis; Z68.30 Body mass index [BMI] 30.0-30.9, adult; Z79.52 Long term (current) use of systemic steroids; Z79.899 Other long term (current) drug therapy; Z80.0 Family history of malignant neoplasm of digestive organs; Z82.49 Family history of ischemic heart disease and other diseases of the circulatory system; Z87.891 Personal history of nicotine dependence
CPT/HCPCS: 36415; 71045; 71046; 80048; 80053; 83605; 83735; 84145; 85025; 85610; 85730; 86738; 87040; 87070; 87205; 87449; 87635; 93005; 94640; 94667; 94668; 94760